=== PATIENT | female | born 1975 | race African-American/Black ===

== ENCOUNTER 2016-09-13 10:52 | Observation (INO) | payer OTHER ==
[2016-09-13 11:05] LABS: Glucose,Whole Blood 146 mg/dL (75-99)
[2016-09-13 11:30] LABS: Basophils % (A) 1 %; CH 30.7; CHCM 32.6; Eosinophils # (A) 0.1 k/uL (0-0.7); Eosinophils % (A) 2 %; HCT 43.1 % (34.0-46.0); HDW 2.51; HGB 13.8 gm/dL (11.4-16.0); Luc # (Auto) 0.16; Luc % (Auto) 2; Lymphocytes % (A) 56 %; MCH 30.3 pg (25.0-35.0); MCV 94.5 fL (80.0-100.0); Mean Platelet Volume 7.9; Monocytes # (A) 0.4 k/uL (0-1.0); Monocytes % (A) 5 %; Neutrophils # (A) 2.5 k/uL (1.3-7.7); Neutrophils % (A) 35 %; RBC 4.57 m/uL (3.80-5.40); RDW 13.4 % (11.5-15.5); WBC 7.2 k/uL (3.8-10.6); WBC (Perox) 7.22
[2016-09-13 11:37] LABS: Partial Thromboplastin Time 26.4 sec (22.0-30.0); Prothrombin Time 10.3 sec (9.0-12.0)
[2016-09-13 11:44] LABS: ALT 32 U/L (9-52); AST 14 U/L (14-36); Alkaline Phosphatase 86 U/L (38-126); Anion Gap 10 mmol/L; Blood Urea Nitrogen 14 mg/dL (7-17); Calcium 9.5 mg/dL (8.4-10.2); Carbon Dioxide 30 mmol/L (22-30); Chloride 103 mmol/L (98-107); Glucose 159 mg/dL (74-99); Non-African American GFR(MDRD) >60 (>60 ml/min/1.73 sqM); Potassium 4.2 mmol/L (3.5-5.1); Sodium 143 mmol/L (137-145); Total Bilirubin 0.5 mg/dL (0.2-1.3); Total Protein 7.5 g/dL (6.3-8.2)
--- NOTE | 2016-09-13 11:48 | CT ---
EXAMINATION TYPE: CT brain wo con DATE OF EXAM: 09/13/2016 11:42 AM COMPARISON: 04/15/2014 HISTORY: 40-year-old female complains of left side facial droop, headache, and episode of dysphagia a nd blurry vision. TECHNIQUE: Examination was done in axial plane without intravenous contrast. Coronal and sagittal reconstructio ns performed. CT DLP: 1028 mGycm Automated exposure control for dose reduction was used. FINDINGS: There is no evidence of acute intracranial hemorrhage, acute ischemic changes, mass, mass-effect, or extra-axial fluid collection. There is no effacement of cerebral sulci or basal subarachnoid cister ns. There is no hydrocephalus. There is no midline shift. Joseph-white matter distinction is preserv ed. Incidental empty sella. Patient's gaze is slightly divergent suggesting underlying strabismus. Visualized paranasal sinuses a nd mastoid air cells well pneumatized. Cerumen within the right external auditory canal. IMPRESSION: 1. No acute intracranial abnormality seen. 2. Empty sella. 3. Slightly divergent gaze suggests underlying strabismus. Clinically correlate.
--- NOTE | 2016-09-13 11:50 | XR ---
EXAMINATION TYPE: XR chest 1V portable DATE OF EXAM: 09/13/2016 11:37 AM COMPARISON: 07/30/2014 HISTORY: Pain TECHNIQUE: Single frontal view of the chest is obtained. FINDINGS: There is no focal air space opacity, pleural effusion, or pneumothorax seen. The cardiac silhouette size is within normal limits. The osseous structures are intact. IMPRESSION: 1. No acute process.
[2016-09-13 11:55] LABS: Manual Review Performed
[2016-09-13 11:56] LABS: RBC Morphology Normal
[2016-09-13 12:09] LABS: Creatine Kinase 60 U/L (30-135)
[2016-09-13] MEDS ORDERED: RX INFO: IV CONTRAST WAS GIVEN 1 EACH MISC MISCELLANE PRN (12:15)
[2016-09-13] MEDS ORDERED: INSULIN REGULAR 100 UNIT/ML VIAL IV STA (12:16)
[2016-09-13 12:21] LABS: Creatine Kinase MB <0.2 ng/mL (0.0-2.4); Troponin I <0.012 ng/mL (0.000-0.034)
--- NOTE | 2016-09-13 13:22 | CT ---
EXAMINATION TYPE: CT angio head neck DATE OF EXAM: 09/13/2016 1:17 PM COMPARISON: CT brain 09/13/2016 HISTORY: 40-year-old female left-sided weakness and right facial droop. CT DLP: 1287.6 mGycm Automated exposure control for dose reduction was used. TECHNIQUE: Brain and neck after administration of 60mL Omnipaque 350 IV contrast. Coronal and sagitta l MIP reconstructions performed. 3-D reconstructions generated on a dedicated independent workstation . Detailed analysis of the carotid vessels with 3-D vessel probe.. FINDINGS: NECK: There is bovine configuration to the aortic arch. Both vertebral artery origins are patent. The vertebral arteries are codominant and patent throughout their course. Incidentally, there is early tilted cutoff of the left posterior inferior cerebellar artery at the up per C3 segment. Right common carotid artery and right internal carotid artery are patent. Left common carotid artery and left internal carotid artery are patent. BRAIN: There is prominent venous contamination. Both anterior and posterior circulations are patent includin g the vertebral, basilar, and internal carotid arteries. No significant stenosis or occlusion is seen . No aneurysmal change identified. Empty sella and again noted. IMPRESSION: 1. NO SIGNIFICANT STENOSIS OR OCCLUSION OF THE CAROTID OR VERTEBRAL ARTERIES IN THE NECK. 2. NO LARGE VESSEL INTRACRANIAL OCCLUSION, SIGNIFICANT STENOSIS, OR ANEURYSMAL CHANGE SEEN.
[2016-09-13 15:25] LABS: Glucose,Whole Blood 83 mg/dL (75-99)
[2016-09-13] MEDS ORDERED: ASPIRIN 325 MG TAB PO STA (15:57)
--- NOTE | 2016-09-13 17:02 | US ---
EXAMINATION TYPE: US carotid duplex BILAT DATE OF EXAM: 09/13/2016 4:48 PM COMPARISON: NONE CLINICAL HISTORY: 40-year-old female with left facial drooping. Evaluate for stenosis. TECHNIQUE: Duplex ultrasound examination of the carotid and vertebral arteries. Indirect Doppler crit eria was utilized. FINDINGS: Grayscale images show minimal plaque at both bifurcations. RIGHT: Peak Systolic Velocity (PSV) cm/sec ----- Right CCA: 85.3 ----- Right ICA: 72.9 ----- Right ECA: 59.0 ICA/CCA ratio: 0.9 RIGHT: End Diastole cm/sec ----- Right CCA: 25.9 ----- Right ICA: 28.4 ----- Right ECA: 11.9 LEFT: Peak Systolic Velocity (PSV) cm/sec ----- Left CCA: 85.5 ----- Left ICA: 70.3 ----- Left ECA: 59.8 ICA/CCA ratio: 0.8 LEFT: End Diastole cm/sec ----- Left CCA: 28.2 ----- Left ICA: 31.9 ----- Left ECA: 59.8 VERTEBRALS (direction of flow): Right Vertebral: Antegrade Left Vertebral: Antegrade IMPRESSION: No hemodynamically significant stenosis appreciated in either internal carotid artery. Criteria for Assigning % of Stenosis / Diameter reduction (Estimation based on the indirect measurements of the internal carotid artery velocities (ICA PSV). 1. Normal (no stenosis)=ICA PSV < 125 cm/s: ratio < 2.0: ICA EDV<40 cm/s. 2. Less than 50% stenosis=ICA PSV < 125 cm/s: ratio < 2.0: ICA EDV<40 cm/s. 3. 50 to 69% stenosis=ICA PSV of 125 to 230 cm/s: ration 2.0 ? 4.0: ICA EDV 40-100 cm/s. 4. Greater than 70% stenosis to near occlusion= ICA PSV > 230 cm/s: ratio > 4.0: ICA EDV > 100 cm/s. 5. Near occlusion= ICA PSV velocities may be low or undetectable: variable ratio and ICA EDV. 6. Total occlusion=unable to detect flow.
[2016-09-13] MEDS: SODIUM CHLORIDE 0.9% 1,000 ML IV SCH (17:03)
--- NOTE | 2016-09-13 17:49 | ED ---
Neuro HPI - General Chief Complaint: Neuro Symptoms/Deficit Stated Complaint: face drooping Time Seen by Provider: 09/13/16 11:04 Source: patient Mode of arrival: wheelchair Limitations: no limitations - History of Present Illness Is the patient presenting with stroke symptoms?: Yes Onset/Timin -: hour(s) Initial Comments: This patient is a 40-year-old woman who presents to be evaluated for neurologic symptoms. The patient states that at about 8:30 last night she began to develop right-sided facial numbness. She has developed a facial droop over the course of the night. Then about half hour prior to coming in she began to have some left leg tingling and left arm tingling as well. Patient is denying headache, change in vision or speech. She has not had any difficulty with swallowing or breathing. Patient does not have any neurologic symptoms to the right side of her body or to the left side of her face. Location: right face, left arm, left leg History of same: No Place: home Severity: moderate Quality: weak Improves With: none Worsens With: none On Anticoagulants: No Context: gradual onset Associated Symptoms: denies other symptoms - Related Data Home Medications: Home Medications Medication Instructions Recorded Confirmed Azithromycin [Zithromax Z-pack] 0 mg PO DIRECTED 09/13/16 09/13/16 methylPREDNISolone Dose Pack 4 mg PO DIRECTED 09/13/16 09/13/16 [Medrol Dose Pack] Allergies/Adverse Reactions: Allergies Allergy/AdvReac Type Severity Reaction Status Date / Time Penicillins Allergy Unknown Verified 09/13/16 11:50 Review of Systems ROS Statement: Those systems with pertinent positive or pertinent negative responses have been documented in the HPI. ROS Other: All systems not noted in ROS Statement are negative. Constitutional: Reports: weakness. Denies: fever, chills Eyes: Denies: vision change ENT: Denies: ear pain, hearing loss Respiratory: Denies: cough, dyspnea Cardiovascular: Denies: chest pain, palpitations, edema, syncope Gastrointestinal: Denies: abdominal pain, nausea, vomiting Genitourinary: Denies: dysuria, hematuria Musculoskeletal: Denies: back pain Skin: Denies: rash Neurological: Reports: as per HPI, weakness, numbness. Denies: headache, confusion, abnormal gait General Exam Limitations: no limitations General appearance: alert, in no apparent distress Head exam: Present: atraumatic, normocephalic, normal inspection Eye exam: Present: PERRL, EOMI. Absent: scleral icterus, conjunctival injection ENT exam: Present: normal oropharynx, mucous membranes moist, normal external ear exam Neck exam: Present: normal inspection, full ROM. Absent: tenderness, meningismus Respiratory exam: Present: normal lung sounds bilaterally. Absent: respiratory distress, wheezes, rales, rhonchi, stridor Cardiovascular Exam: Present: regular rate, normal rhythm, normal heart sounds. Absent: systolic murmur, diastolic murmur, rubs, gallop GI/Abdominal exam: Present: soft. Absent: distended, tenderness, guarding, rebound, mass Extremities exam: Present: normal inspection, normal capillary refill. Absent: pedal edema, calf tenderness Back exam: Present: normal inspection. Absent: CVA tenderness (R), CVA tenderness (L) Neurological exam: Present: alert, oriented X3, normal gait, motor sensory deficit. Absent: CN II-XII intact Skin exam: Present: warm, dry, intact, normal color. Absent: rash Stroke MDM - Lab Data Result diagrams: 09/13/16 11:10 09/13/16 11:10 Lab Results 09/13/16 09/13/16 09/13/16 Range/Units 11:04 11:10 11:10 WBC 7.2 (3.8-10.6) k/uL RBC 4.57 (3.80-5.40) m/uL Hgb 13.8 (11.4-16.0) gm/dL Hct 43.1 (34.0-46.0) % MCV 94.5 (80.0-100.0) fL MCH 30.3 (25.0-35.0) pg MCHC 32.0 (31.0-37.0) g/dL RDW 13.4 (11.5-15.5) % Plt Count 285 (150-450) k/uL Neutrophils % 35 % Lymphocytes % 56 % Monocytes % 5 % Eosinophils % 2 % Basophils % 1 % Neutrophils # 2.5 (1.3-7.7) k/uL Lymphocytes # 4.0 (1.0-4.8) k/uL Monocytes # 0.4 (0-1.0) k/uL Eosinophils # 0.1 (0-0.7) k/uL Basophils # 0.0 (0-0.2) k/uL Manual Slide Review Performed RBC Morphology Normal PT (9.0-12.0) sec INR (<1.1) APTT (22.0-30.0) sec Sodium (137-145) mmol/L Potassium (3.5-5.1) mmol/L Chloride (98-107) mmol/L Carbon Dioxide (22-30) mmol/L Anion Gap mmol/L BUN (7-17) mg/dL Creatinine (0.52-1.04) mg/dL Est GFR (MDRD) Af Amer (>60 ml/min/1.73 sqM) Est GFR (MDRD) Non-Af (>60 ml/min/1.73 sqM) Glucose (74-99) mg/dL POC Glucose (mg/dL) 146 H (75-99) mg/dL POC Glu Auto Cleaner ID Octavio Watson Calcium (8.4-10.2) mg/dL Total Bilirubin (0.2-1.3) mg/dL AST (14-36) U/L ALT (9-52) U/L Alkaline Phosphatase (38-126) U/L Total Creatine Kinase 60 (30-135) U/L CK-MB (CK-2) <0.2 (0.0-2.4) ng/mL CK-MB (CK-2) Rel Index Troponin I <0.012 (0.000-0.034) ng/mL Total Protein (6.3-8.2) g/dL Albumin (3.5-5.0) g/dL 09/13/16 09/13/16 09/13/16 Range/Units 11:10 11:10 15:22 WBC (3.8-10.6) k/uL RBC (3.80-5.40) m/uL Hgb (11.4-16.0) gm/dL Hct (34.0-46.0) % MCV (80.0-100.0) fL MCH (25.0-35.0) pg MCHC (31.0-37.0) g/dL RDW (11.5-15.5) % Plt Count (150-450) k/uL Neutrophils % % Lymphocytes % % Monocytes % % Eosinophils % % Basophils % % Neutrophils # (1.3-7.7) k/uL Lymphocytes # (1.0-4.8) k/uL Monocytes # (0-1.0) k/uL Eosinophils # (0-0.7) k/uL Basophils # (0-0.2) k/uL Manual Slide Review RBC Morphology PT 10.3 (9.0-12.0) sec INR 1.0 (<1.1) APTT 26.4 (22.0-30.0) sec Sodium 143 (137-145) mmol/L Potassium 4.2 (3.5-5.1) mmol/L Chloride 103 (98-107) mmol/L Carbon Dioxide 30 (22-30) mmol/L Anion Gap 10 mmol/L BUN 14 (7-17) mg/dL Creatinine 0.70 (0.52-1.04) mg/dL Est GFR (MDRD) Af Amer >60 (>60 ml/min/1.73 sqM) Est GFR (MDRD) Non-Af >60 (>60 ml/min/1.73 sqM) Glucose 159 H (74-99) mg/dL POC Glucose (mg/dL) 83 (75-99) mg/dL POC Glu Auto Cleaner Kristan Harvey Calcium 9.5 (8.4-10.2) mg/dL Total Bilirubin 0.5 (0.2-1.3) mg/dL AST 14 (14-36) U/L ALT 32 (9-52) U/L Alkaline Phosphatase 86 (38-126) U/L Total Creatine Kinase (30-135) U/L CK-MB (CK-2) (0.0-2.4) ng/mL CK-MB (CK-2) Rel Index Troponin I (0.000-0.034) ng/mL Total Protein 7.5 (6.3-8.2) g/dL Albumin 4.2 (3.5-5.0) g/dL - NIH Stroke Scale NIH Score total: 4 - Thrombolytic Inclusion/Exclusion Thrombolytic Exclusion Criteria: Symptom Onset > 3 Hours - Medical Decision Making Patient is a 40-year-old woman who began having neurologic symptoms last night and has continued to have symptoms to evolving. On the exam she has right- sided facial weakness involving the upper and lower motor neuron. The patient also has mild left sided upper extremity weakness and left leg ataxia on the heel metzger. The symptoms point towards a brainstem source. She had CT and CT angiogram that were negative. I discussed the case with the admitting physician as well as the neurologist. The patient had MRI ordered. - EKG Data -: EKG Interpreted by Me EKG shows normal: sinus rhythm, axis (Normal), intervals (Normal), QRS complexes (Normal), ST-T waves (Normal) Rate: normal (Rate 71 bpm) Interpretation: normal EKG Past Medical History Past Medical History: Asthma History of Any Multi-Drug Resistant Organisms: None Reported Past Surgical History: Hernia Repair, Hysterectomy Past Psychological History: No Psychological Hx Reported Smoking Status: Former smoker Past Alcohol Use History: Occasional Past Drug Use History: None Reported Course Vital Signs 09/13/16 09/13/16 09/13/16 10:54 11:10 11:40 Temperature 97 F L 97.0 F L Pulse Rate 78 87 87 Pulse Rate [ Wholesale Buyer ] Respiratory 18 16 16 Rate Blood Pressure 179/109 167/87 186/94 Blood Pressure [Right Arm Sitting] O2 Sat by Pulse 98 100 100 Oximetry 09/13/16 09/13/16 09/13/16 12:40 13:40 14:40 Temperature 97.6 F 97.7 F 97.7 F Pulse Rate 71 80 73 Pulse Rate [ Wholesale Buyer ] Respiratory 16 16 16 Rate Blood Pressure 143/66 134/87 137/78 Blood Pressure [Right Arm Sitting] O2 Sat by Pulse 100 100 99 Oximetry 09/13/16 16:40 Temperature 98.3 F Pulse Rate Pulse Rate [ 77 Wholesale Buyer ] Respiratory 16 Rate Blood Pressure Blood Pressure 150/71 [Right Arm Sitting] O2 Sat by Pulse 99 Oximetry - Reevaluation(s) Reevaluation #1: 09/13/16 17:47 I was at school informed that the patient had refused the MRI. Patient will be seen by neurology. she again is outside of the window for TPA. Patient's family desires that it be entered in her chart that there is prolonged QT syndrome in the family. The patient's EKG does not demonstrate prolonged QT. Disposition Clinical Impression: Acute ischemic stroke, Hyperglycemia Disposition: ADMITTED IP TO THIS [facility] Condition: Serious
[2016-09-13] MEDS: DOCUSATE 100 MG CAP PO SCH ×2 (19:45→21:28)
[2016-09-13 20:39] LABS: Glucose,Whole Blood 113 mg/dL (75-99)
--- NOTE | 2016-09-13 20:50 | MR ---
EXAMINATION TYPE: MR brain wo/w con DATE OF EXAM: 09/13/2016 8:26 PM COMPARISON: NONE HISTORY: Rt facial droop, lt arm weakness CONTRAST: Standard multiplanar, multisequence MRI departmental protocol utilizing 20 mL intravenous MultiHance gadolinium contrast. FINDINGS: The ventricles and sulci appear normal. There is no mass effect nor midline shift. Joesph and white matter structures have normal signal pattern. There is no evidence of cerebral edema. Corpus c allosum appears normal. Brainstem appears normal. There is mild mucosal thickening in the anterior le ft maxillary sinus. Sella turcica appears normal. Pituitary stalk is in the midline. Optic chiasm josse ears normal. There is no pathologic enhancement. IMPRESSION: Normal MR scan of the brain with and without contrast. No adverse change compared to old exam. Small mucous retention cyst in the left maxillary sinus.
[2016-09-13] MEDS ORDERED: PRAVASTATIN SODIUM 40 MG TAB PO SCH (21:00)
[2016-09-13] MEDS: FAMOTIDINE 20 MG/2 ML VIAL IV SCH (21:24)
[2016-09-13 23:42] LABS: Appearance,Urine Clear (Clear); Bilirubin,Urine Negative (Negative); Glucose,Urine (UA) Negative (Negative); Ketones,Urine Negative (Negative); Leukocyte Esterase,Urine Negative (Negative); Nitrite,Urine Negative (Negative); PH, Urine 5.5 (5.0-8.0); Protein,Urine Negative (Negative); Specific Gravity,Urine 1.019 (1.001-1.035); UA Billing (MACRO vs. MICRO) CHEM; Urobilinogen,Urine <2.0 mg/dL (<2.0)
[2016-09-14] MEDS: SODIUM CHLORIDE 0.9% 1,000 ML IV SCH ×2 (02:32→11:28)
[2016-09-14] MEDS ORDERED: ARTIFICIAL TEARS-HYPROMELLOSE DROPS 15 ML BTL BOTH EYES PRN (06:48)
[2016-09-14] MEDS: FAMOTIDINE 20 MG/2 ML VIAL IV SCH (07:50)
[2016-09-14] MEDS: DOCUSATE 100 MG CAP PO SCH (07:50)
--- NOTE | 2016-09-14 11:29 | P.CNNES ---
History of Present Illness Consult date: 09/14/16 Reason for Consult: Patient with right facial droop. History of Present Illness: This patient is a 40-year-old right-handed -[place] female who apparently 2 days ago noted sudden onset of right-sided facial numbness. She did not pay much attention thinking the symptoms would improve. Yesterday evening she went to meet her mother at home and noted that she was having more difficulty with some facial droop on the right side of her face. It was more noticeable to her and her mother. She was concerned this she has not had this type of symptom previously. The patient went to an urgent care center for further evaluation. She was then sent from the urgent care to the emergency room at [facility] for further evaluation. She was seen in the ER yesterday by Dr. Recio. Further evaluation at the time indicated the patient did have right-sided facial drooping as well as some complaints of left arm numbness and weakness. There was concern the patient may have had a TIA or strokelike syndrome and she was subsequently admitted to the hospital. The patient was sent for carotid Doppler ultrasound yesterday which came back negative for any evidence of carotid artery stenosis. Due to her symptoms there was concern for possibility of brainstem stroke and she was sent for MRI of the brain yesterday evening. MRI of the brain came back normal with no evidence of acute stroke or hemorrhage. We reviewed the MRI results today with the patient. She is resting comfortably and has noted improvement with the left -sided numbness. She still has right-sided facial weakness. Her clinical presentation at this time suggesting acute right-sided idiopathic Sotelo's palsy. She denies any recent exposure to cold weather on the face. She denies any right-sided facial pain at this time. She did notice some difficulty with her taste sensation on the anterior portion of her tongue yesterday. She still notices some slight tingling sensation on the tongue. The patient denied any focal weakness today. She has no previous history of TIA or stroke. We have recommended that she be treated with a Medrol Dosepak for acute Sotelo's palsy. Apparently she has used steroids in the past that she suffers from asthma. Once again reviewed the MRI of the brain and there is no evidence for acute ischemic stroke. Neurology is now consulted for further evaluation and recommendations. Review of Systems Constitutional: Denies chills, Denies fever Eyes: denies blurred vision, denies pain Ears, nose, mouth and throat: Denies headache, Denies sore throat Cardiovascular: Denies chest pain, Denies shortness of breath Respiratory: Denies cough Gastrointestinal: Denies abdominal pain, Denies diarrhea, Denies nausea, Denies vomiting Genitourinary: Denies dysuria, Denies hematuria Musculoskeletal: Denies myalgias Integumentary: Denies pruritus, Denies rash Neurological: Reports numbness, Reports paresthesias, Reports weakness Psychiatric: Denies anxiety, Denies depression Endocrine: Denies fatigue, Denies weight change Past Medical History Past Medical History: Asthma, Sleep Apnea/CPAP/BIPAP Additional Past Medical History / Comment(s): arthritis,psoriases, not using her cpap, recent abx for uri History of Any Multi-Drug Resistant Organisms: None Reported Past Surgical History: Hernia Repair, Hysterectomy Additional Past Surgical History / Comment(s): total hysterectomy Past Anesthesia/Blood Transfusion Reactions: No Reported Reaction Additional Past Anesthesia/Blood Transfusion Reaction / Comment(s): past blood transfusion-no reaction Past Psychological History: No Psychological Hx Reported Smoking Status: Former smoker Past Alcohol Use History: Occasional Additional Past Alcohol Use History / Comment(s): started smoking age 13,quit 2006, smoked 1 ppd Past Drug Use History: None Reported - Past Family History Mother Family Medical History: Asthma, Diabetes Mellitus, Hypertension Additional Family Medical History / Comment(s): heart problems Father Additional Family Medical History / Comment(s): "stomach problems," Medications and Allergies Home Medications Medication Instructions Recorded Confirmed Type Azithromycin [Zithromax Z-pack] 0 mg PO DIRECTED 09/13/16 09/13/16 History methylPREDNISolone Dose Pack 4 mg PO DIRECTED 09/13/16 09/13/16 History [Medrol Dose Pack] Allergies Allergy/AdvReac Type Severity Reaction Status Date / Time Penicillins Allergy Unknown Verified 09/13/16 11:50 Physical Examination - Vital Signs Vital Signs: Vital Signs Temp Pulse Resp BP Pulse Ox 09/14/16 04:00 73 16 117/67 100 09/14/16 00:00 97.8 F 88 16 162/87 100 09/13/16 20:00 97.4 F L 79 16 145/84 96 09/13/16 19:24 97.0 F L 73 16 154/108 98 09/13/16 18:40 97.8 F 79 16 158/74 99 09/13/16 16:40 98.3 F 77 16 150/71 99 Intake and Output 09/13/16 09/14/16 09/14/16 22:59 06:59 14:59 Output Total 550 Balance -550 Output: Urine 550 Other: Voiding Method Toilet Toilet # Voids 1 1 Weight 147.4 kg - Constitutional General appearance: average body habitus, cooperative - EENT EENT: mucous membranes moist - Respiratory Respiratory: lungs clear, normal breath sounds - Cardiovascular Cardiovascular: regular rate, normal S1, normal S2 Extremities: no peripheral edema bilaterally - Gastrointestinal Gastrointestinal: normoactive bowel sounds - Integumentary Integumentary: normal - Neurologic Cranial nerve examination: PERRL, EOMI, VFF, V1/V2/V3 grossly intact, tongue midline, intact gag reflex, intact corneal reflex, facial droop (Patient has a right lower motor neuron facial weakness pattern. She is unable to wrinkle her frontalis muscle and has right angle of the mouth weakness.), normal palatal elevation Speech examination: intact Sensorimotor examination: intact Detailed motor examination: grossly full strength in all extremities Motor examination - right side: 5/5: biceps, triceps, wrist flexion, wrist extension, land checker, hip flexors, knee extensors, dorsiflexion, toe extension (EHL) , plantarflexion Motor examination - left side: 5/5: biceps, triceps, wrist flexion, wrist extension, land checker, hip flexors, knee extensors, dorsiflexion, toe extension (EHL) , plantarflexion Detailed sensory examination: intact Reflex and gait examination: intact Reflexes: 1+: ankle, bicep, knee, tricep - Musculoskeletal Musculoskeletal: no pain - Psychiatric Psychiatric: mood/affect appropriate, cooperative Results - Laboratory Findings CBC and BMP: 09/13/16 11:10 09/13/16 11:10 Abnormal Lab Findings: Abnormal Labs 09/13/16 20:38 POC Glucose (mg/dL) 113 H Assessment and Plan (1) Right-sided Sotelo's palsy Status: Acute Code(s): G51.0 - SOTELO'S PALSY (2) Paresthesias Status: Acute Code(s): R20.2 - PARESTHESIA OF SKIN Plan: This patient is a 40-year-old female who presented 2 days ago with symptoms of right-sided facial numbness and weakness. Yesterday did symptoms worsened and she was admitted through the emergency room with possible symptoms of brainstem stroke. She was sent for MRI of the brain yesterday which came back negative for any evidence of acute stroke. Specifically no evidence of brainstem stroke. Her neurological examination today indicates the patient to have a right idiopathic Sotelo's palsy. Her pattern of weakness involving the right facial nerve is consistent with L's palsy. We've recommended that she begin on a Medrol Dosepak for further treatment. She is to use eye patch for the right eye at night when sleeping. We recommend a physical therapy consultation for exercise program for acute Sotelo's palsy. She may follow-up in the outpatient neurology clinic in 3-4 weeks following discharge. We've instructed her on some specific exercises to be performed for the Sotelo's palsy today as well. She may follow-up in the outpatient neurology clinic as recommended. Her overall prognosis at this time remains fair. Time with Patient: Greater than 30
--- NOTE | 2016-09-14 11:49 | ECHOF ---
Referral Reason:Thrombus MEASUREMENTS -------- HEIGHT: 180.3 cm WEIGHT: 147.9 kg BP: IVSd: 1.3 cm (0.6 - 1.1) LVIDd: 4.6 cm (3.9 - 5.3) LVPWd: 1.7 cm (0.6 - 1.1) IVSs: 1.8 cm LVIDs: 3.0 cm LVPWs: 2.1 cm Ao Diam: 2.6 cm (2.0 - 3.7) AV Cusp: 2.2 cm (1.5 - 2.6) LA Diam: 3.6 cm (2.7 - 3.8) MV EXCURSION: 21.866 mm (> 18.000) MV EF SLOPE: 131 mm/s (70 - 150) EPSS: 0.7 cm MV E Billy: 0.70 m/s MV DecT: 309 ms MV A Billy: 0.44 m/s MV E/A Ratio: 1.59 RAP: 5.00 mmHg RVSP: 11.95 mmHg FINDINGS -------- Sinus rhythm. This was a technically difficult study with suboptimal views. Morbid Obesity There is moderate concentric left ventricular hypertrophy. Overall left ventricular systolic function is low-normal with, an EF between 50 - 55 %. The right ventricle is normal in size and function. The left atrium is normal in size. The right atrium is normal in size. The aortic valve is trileaflet, and appears structurally normal. No aortic stenosis or regurgitation. The mitral valve leaflets are mildly thickened. Mild mitral regurgitation is present. Trace tricuspid regurgitation present. The right ventricular systolic pressure, as measured by Doppler, is 11.95mmHg. Pulmonic valve appears structurally normal. The aortic root, ascending aorta and aortic arch are normal. The pericardium is normal. CONCLUSIONS -------- 1. Sinus rhythm. 2. Trace tricuspid regurgitation present. 3. The right ventricular systolic pressure, as measured by Doppler, is 11.95mmHg. 4. Pulmonic valve appears structurally normal. 5. The aortic root, ascending aorta and aortic arch are normal. 6. The pericardium is normal. 7. There is moderate concentric left ventricular hypertrophy. 8. Overall left ventricular systolic function is low-normal with, an EF between 50 - 55 %. 9. The right ventricle is normal in size and function. 10. The left atrium is normal in size. 11. The right atrium is normal in size. 12. The aortic valve is trileaflet, and appears structurally normal. No aortic stenosis or regurgitation. 13. The mitral valve leaflets are mildly thickened. 14. Mild mitral regurgitation is present. DAIRY FARMER: Salome Chang RDCS
[2016-09-14 14:14] VITALS: BP 122/74; PULSE 82; RESP 14; TEMP 98.8
--- NOTE | 2016-09-14 16:29 | HP ---
DATE OF ADMISSION: 09/13/2016 PRESENTING COMPLAINT: Right-sided facial weakness. HISTORY OF PRESENTING COMPLAINT: 40-year-old patient ( ) history of ( ) whose chronic stable medical conditions include asthma, osteoarthritis. Patient presented with 2 days of right-sided facial weakness and felt that she may have some weakness in the left upper arm, left arm with some numbness. Some blurriness of the vision. No headache. No difficulty in swallowing. The patient is felt to have Rubalcava's palsy but because of involvement of lower left arm, there is a question about a stroke, hence being admitted for the same. No prior history of the same. REVIEW OF SYSTEMS: CONSTITUTIONAL: None. HEENT: As above. RESPIRATORY: None. CARDIOVASCULAR: None. GASTROINTESTINAL: None. GENITOURINARY: None. MUSCULOSKELETAL: Some pain in the joints. Dermatological: None. HEMATOLOGIC: None. LYMPHATICS: None. NEUROLOGICAL: As above. PSYCHIATRY: As above. Past history of asthma, questionable sleep apnea. PAST SURGICAL HISTORY: Hernia repair, total hysterectomy. SOCIAL HISTORY: The patient smoked a pack a day for 14 years; stopped in 2006. No alcohol intake. FAMILY HISTORY: Asthma, diabetes, hypertension, heart problems. Home medications: 1. Medrol Dosepak. 2. Zithromax. ALLERGIES TO PENICILLIN. PHYSICAL EXAMINATION: Vital signs on presentation: Temperature 97.7, pulse 73, respirations 16, blood pressure 137/78, pulse ix 99% on 2 L. GENERAL APPEARANCE: Obese, body mass index ( ) sitting up, not in distress. EYES: Pupils equal. Conjunctivae normal. HEENT: External appearance of nose and ears normal. Oral cavity normal. NECK: JVD not raised. Mass not palpable. RESPIRATORY: Effort normal. Lungs are clear. CARDIOVASCULAR: First and second sounds normal. No edema. ABDOMEN: Soft, nontender. Liver and spleen not palpable. LYMPHATIC: No lymph nodes palpable in the neck or axilla. PSYCHIATRY: Alert and oriented times three. Mood and affect are normal. Dermatological: Mouth is pulled to the left, on looking up loss of crease on the right forehead, unable to close the right eyelid tightly. Otherwise, power and sensation grossly intact. INVESTIGATIONS: White count 7.2, hemoglobin 7.8, potassium 4.2. UA negative. Upon admission, CT angio of the brain was unremarkable. ASSESSMENT: 1. Possible right-sided Rubalcava's palsy idiopathic given some symptoms on the left arm. MRI of the brain was added. 2. Morbid obesity; body mass index of 44.1. 3. Intermittent asthma, stable. PLAN: Neurological was consulted. MRI of the brain was ordered on presentation. ( ) was ordered.
--- NOTE | 2016-09-15 07:58 | DS ---
DATE OF ADMISSION: 09/13/2016 DATE OF DISCHARGE: 09/14/2016 FINAL DIAGNOSES: 1. Right-sided Rubalcava's palsy, idiopathic. 2. Morbid obesity, body mass index of 44.1. 3. Intermittent asthma, stable. HOSPITAL COURSE: This patient presented with right-sided Rubalcava's palsy. MRI of the brain was negative. Carotid Doppler was negative. CONSULTATION: Dr. Sylvie Sykes from neurology. Echocardiogram was unremarkable. DISCHARGE MEDICATIONS: 1. Medrol Dosepak. 2. Artificial tears one drop to both eyes q.i.d. p.r.n. Rubalcava's palsy exercise. Follow up with Dr. Sylvie Sykes in 3 weeks; Dr. Floridalma Stratton in one week. On examination, right-sided seventh ( ) nerve low motor neuron type paresis.
[2016-09-15] MEDS ORDERED: methylPREDNISolone 4 MG TAB TAPER PO SCH (09:00)
== END 2016-09-14 14:58 | disposition home or self-care (01) ==
LOC: EC 10:52 → 6SEL 15:59 → INTOOBSV 15:59
PROVIDERS: ADMIT Hospitalist; ATTEND Hospitalist
DX: G51.0 Bell's palsy (principal); Z68.41 Body mass index [BMI] 40.0-44.9, adult; E66.01 Morbid (severe) obesity due to excess calories; G47.30 Sleep apnea, unspecified; J45.20 Mild intermittent asthma, uncomplicated; L40.9 Psoriasis, unspecified; M19.90 Unspecified osteoarthritis, unspecified site; R73.9 Hyperglycemia, unspecified; Z88.0 Allergy status to penicillin; Z87.891 Personal history of nicotine dependence; Z82.49 Family history of ischemic heart disease and other diseases of the circulatory system; Z90.710 Acquired absence of both cervix and uterus; Z91.19 Patient's noncompliance with other medical treatment and regimen; Z82.5 Family history of asthma and other chronic lower respiratory diseases
CPT/HCPCS: 96361; 96374; 99285; 36415; 93005; 93306; 97163; 80053; 82550; 82553; 84484; 85025; 85610; 85730; 81003; 71010; 93880; 70496; 70450; 70498; 70553; G0378 ×2; Q9967; A9577; 96376

== ENCOUNTER 2017-03-13 19:47 | Emergency (ER) | payer OTHER ==
[2017-03-13] MEDS ORDERED: ASPIRIN 81 MG CHEW PO STA (20:43)
[2017-03-13] MEDS ORDERED: SODIUM CHLORIDE 0.9% 1,000 ML IV STA (20:43)
--- NOTE | 2017-03-13 20:57 | ED ---
General Adult HPI - General Chief complaint: Chest Pain Stated complaint: Sent by ME Chest pain Time Seen by Provider: 03/13/17 20:37 Source: patient, RN notes reviewed Mode of arrival: wheelchair Limitations: no limitations - History of Present Illness Initial comments: Patient is a 41-year-old female who presents emergency room today with a chief complaint of chest pain. She does admit to a "burning" type sensation to the anterior chest wall. States started yesterday approximate 6 PM when she was at work. She states it lasts for just a few seconds to minutes at a time. She states she feels radiation to the back and left arm. She states she's been having the same symptoms all last night and are up-to-date today. She states there is nothing that seems to make it better or worse. She states she's never had symptoms like this in the past. Currently denies any pain currently. Denies any other complaints or symptoms. Denies any family history of heart disease. Patient denies any recent fever, chills, shortness of breath, back pain , abdominal pain, nausea or vomiting, numbness or tingling, dysuria or hematuria , constipation or diarrhea, headaches or visual changes, or any other complaints. - Related Data Home Medications Medication Instructions Recorded Confirmed Albuterol Inhaler [Ventolin Hfa 1 - 2 puff INHALATION RT-Q6H PRN 03/13/17 Inhaler] Albuterol Nebulized [Ventolin 2.5 mg INHALATION RT-Q4H PRN 03/13/17 03/13/17 Nebulized] Previous Rx's Medication Instructions Recorded Famotidine [Pepcid] 20 mg PO BID #20 tablet 03/13/17 Allergies Allergy/AdvReac Type Severity Reaction Status Date / Time Penicillins Allergy Unknown Verified 03/13/17 20:35 Review of Systems ROS Statement: Those systems with pertinent positive or pertinent negative responses have been documented in the HPI. ROS Other: All systems not noted in ROS Statement are negative. Past Medical History Past Medical History: Asthma, Sleep Apnea/CPAP/BIPAP Additional Past Medical History / Comment(s): arthritis,psoriases, (family hx of long QT syndrome) History of Any Multi-Drug Resistant Organisms: None Reported Past Surgical History: Hernia Repair, Hysterectomy Additional Past Surgical History / Comment(s): total hysterectomy Past Anesthesia/Blood Transfusion Reactions: No Reported Reaction Additional Past Anesthesia/Blood Transfusion Reaction / Comment(s): past blood transfusion-no reaction Past Psychological History: No Psychological Hx Reported Smoking Status: Former smoker Past Alcohol Use History: None Reported Past Drug Use History: None Reported - Past Family History Mother Family Medical History: Asthma, Diabetes Mellitus, Hypertension Additional Family Medical History / Comment(s): heart problems Father Additional Family Medical History / Comment(s): "stomach problems," General Exam - General Exam Comments Initial Comments: General: The patient is awake and alert, in no distress, and does not appear acutely ill. Eye: Pupils are equal, round and reactive to light, extra-ocular movements are intact. No nystagmus. There is normal conjunctiva bilaterally. No signs of icterus. Ears, nose, mouth and throat: There are moist mucous membranes and no oral lesions. Neck: The neck is supple, there is no tenderness or JVD. Cardiovascular: There is a regular rate and rhythm. No murmur, rub or gallop is appreciated. Respiratory: Lungs are clear to auscultation, respirations are non-labored, breath sounds are equal. No wheezes, stridor, rales, or rhonchi. Gastrointestinal: Soft, non-distended, non-tender abdomen without masses or organomegaly noted. There is no rebound or guarding present. No CVA tenderness. Bowel sounds are unremarkable. Musculoskeletal: Normal ROM, no tenderness. Strength 5/5. Sensation intact. Pulses equal bilaterally 2+. Neurological: A&O x 3. CN II-XII intact, There are no obvious motor or sensory deficits. Coordination appears grossly intact. Speech is normal. Skin: Skin is warm and dry and no rashes or lesions are noted. Psychiatric: Cooperative, appropriate mood & affect, normal judgment. Limitations: no limitations Course Vital Signs 03/13/17 03/13/17 20:03 20:45 Temperature 98.0 F Pulse Rate 77 79 Respiratory 18 20 Rate Blood Pressure 155/94 130/65 O2 Sat by Pulse 98 100 Oximetry EKG Findings - EKG Comments: EKG Findings:: EKG performed at 2020: A 12-lead EKG was performed and interpreted by me as showing the following: Rate is 74, and rhythm is normal sinus. There are normal QRS complexes and normal R-wave progression. ST segments have no elevation or depression, and DE segments appear normal. Repeat EKG performed at 2111: A 12-lead EKG was performed and interpreted by me as showing the following: Rate is 76, and rhythm is normal sinus. There are normal QRS complexes and normal R-wave progression. ST segments have no elevation or depression, and DE segments appear normal. Medical Decision Making - Medical Decision Making Case discussed in detail with attending physician Dr. Samuels who saw the patient at bedside. Patient reexamined at this time shows no signs of distress. Symptoms started 6 PM yesterday. There is no change in cardiac markers. EKG shows normal sinus rhythm no changes. At this time patient will be started on a PPI for burning type sensation and advised to follow-up the family doctor tomorrow. She is advised return here to emergency room if any symptoms increase or worsen or for any other concerns. - Lab Data Result diagrams: 03/13/17 20:41 03/13/17 20:41 Lab Results 03/13/17 03/13/17 03/13/17 Range/Units 20:41 20:41 20:41 WBC 5.7 (3.8-10.6) k/uL RBC 4.43 (3.80-5.40) m/uL Hgb 13.8 (11.4-16.0) gm/dL Hct 40.9 (34.0-46.0) % MCV 92.3 (80.0-100.0) fL MCH 31.2 (25.0-35.0) pg MCHC 33.8 (31.0-37.0) g/dL RDW 12.8 (11.5-15.5) % Plt Count 293 (150-450) k/uL Neutrophils % (Manual) 30.0 % Lymphocytes % (Manual) 66.0 % Monocytes % (Manual) 2.0 % Eosinophils % (Manual) 2.0 % Neutrophils # (Manual) 1.7 (1.3-7.7) k/uL Lymphocytes # (Manual) 3.8 (1.0-4.8) k/uL Monocytes # (Manual) 0.1 (0-1.0) k/uL Eosinophils # (Manual) 0.1 (0-0.7) k/uL Nucleated RBCs 0 (0-0) /100 WBC Manual Slide Review Performed RBC Morphology Normal PT (9.0-12.0) sec INR (<1.1) APTT (22.0-30.0) sec Sodium 142 (137-145) mmol/L Potassium 4.2 (3.5-5.1) mmol/L Chloride 107 (98-107) mmol/L Carbon Dioxide 26 (22-30) mmol/L Anion Gap 9 mmol/L BUN 8 (7-17) mg/dL Creatinine 0.60 (0.52-1.04) mg/dL Est GFR (MDRD) Af Amer >60 (>60 ml/min/1.73 sqM) Est GFR (MDRD) Non-Af >60 (>60 ml/min/1.73 sqM) Glucose 154 H (74-99) mg/dL Calcium 9.9 (8.4-10.2) mg/dL Magnesium 2.0 (1.6-2.3) mg/dL Total Bilirubin 0.3 (0.2-1.3) mg/dL AST 16 (14-36) U/L ALT 32 (9-52) U/L Alkaline Phosphatase 86 (38-126) U/L Total Creatine Kinase 94 (30-135) U/L CK-MB (CK-2) 0.3 (0.0-2.4) ng/mL CK-MB (CK-2) Rel Index 0.3 Troponin I <0.012 (0.000-0.034) ng/mL Total Protein 7.1 (6.3-8.2) g/dL Albumin 4.0 (3.5-5.0) g/dL 03/13/17 Range/Units 20:41 WBC (3.8-10.6) k/uL RBC (3.80-5.40) m/uL Hgb (11.4-16.0) gm/dL Hct (34.0-46.0) % MCV (80.0-100.0) fL MCH (25.0-35.0) pg MCHC (31.0-37.0) g/dL RDW (11.5-15.5) % Plt Count (150-450) k/uL Neutrophils % (Manual) % Lymphocytes % (Manual) % Monocytes % (Manual) % Eosinophils % (Manual) % Neutrophils # (Manual) (1.3-7.7) k/uL Lymphocytes # (Manual) (1.0-4.8) k/uL Monocytes # (Manual) (0-1.0) k/uL Eosinophils # (Manual) (0-0.7) k/uL Nucleated RBCs (0-0) /100 WBC Manual Slide Review RBC Morphology PT 9.9 (9.0-12.0) sec INR 1.0 (<1.1) APTT 25.1 (22.0-30.0) sec Sodium (137-145) mmol/L Potassium (3.5-5.1) mmol/L Chloride (98-107) mmol/L Carbon Dioxide (22-30) mmol/L Anion Gap mmol/L BUN (7-17) mg/dL Creatinine (0.52-1.04) mg/dL Est GFR (MDRD) Af Amer (>60 ml/min/1.73 sqM) Est GFR (MDRD) Non-Af (>60 ml/min/1.73 sqM) Glucose (74-99) mg/dL Calcium (8.4-10.2) mg/dL Magnesium (1.6-2.3) mg/dL Total Bilirubin (0.2-1.3) mg/dL AST (14-36) U/L ALT (9-52) U/L Alkaline Phosphatase (38-126) U/L Total Creatine Kinase (30-135) U/L CK-MB (CK-2) (0.0-2.4) ng/mL CK-MB (CK-2) Rel Index Troponin I (0.000-0.034) ng/mL Total Protein (6.3-8.2) g/dL Albumin (3.5-5.0) g/dL Disposition Clinical Impression: Burning chest pain Disposition: HOME SELF-CARE Condition: Good Instructions: Chest Pain (ED) Additional Instructions: Please use medication as discussed. Please follow-up with family doctor in the next 1-2 days. Please return to emergency room if the symptoms increase or worsen or for any other concerns. Prescriptions: Famotidine [Pepcid] 20 mg PO BID #20 tablet Referrals: Raegan Stratton MD [Primary Care Provider] - 1-2 days Time of Disposition: 21:56
[2017-03-13 21:04] LABS: CH 30.6; CHCM 33.2; HCT 40.9 % (34.0-46.0); HDW 2.56; HGB 13.8 gm/dL (11.4-16.0); MCH 31.2 pg (25.0-35.0); MCHC 33.8 g/dL (31.0-37.0); MCV 92.3 fL (80.0-100.0); Mean Platelet Volume 6.6; RBC 4.43 m/uL (3.80-5.40); RDW 12.8 % (11.5-15.5); WBC 5.7 k/uL (3.8-10.6); WBC (Perox) 5.72
--- NOTE | 2017-03-13 21:09 | XR ---
EXAMINATION TYPE: XR chest 2V DATE OF EXAM: 03/13/2017 COMPARISON: 09/13/2016 HISTORY: Chest burning and dyspnea TECHNIQUE: Frontal and lateral views of the chest are obtained. FINDINGS: There is no focal air space opacity, pleural effusion, or pneumothorax seen. The cardiac silhouette size is within normal limits. The osseous structures are intact. IMPRESSION: No acute cardiopulmonary process.
[2017-03-13 21:12] LABS: Prothrombin Time 9.9 sec (9.0-12.0)
[2017-03-13 21:13] LABS: Partial Thromboplastin Time 25.1 sec (22.0-30.0)
[2017-03-13 21:15] LABS: Add Differential Manual Differential
[2017-03-13] MEDS ORDERED: NITROGLYCERIN SL TABS 0.4 MG TAB SUBLINGUAL STA (21:15)
[2017-03-13 21:16] LABS: ALT 32 U/L (9-52); AST 16 U/L (14-36); Alkaline Phosphatase 86 U/L (38-126); Anion Gap 9 mmol/L; Blood Urea Nitrogen 8 mg/dL (7-17); Calcium 9.9 mg/dL (8.4-10.2); Carbon Dioxide 26 mmol/L (22-30); Chloride 107 mmol/L (98-107); Glucose 154 mg/dL (74-99); Non-African American GFR(MDRD) >60 (>60 ml/min/1.73 sqM); Potassium 4.2 mmol/L (3.5-5.1); Sodium 142 mmol/L (137-145); Total Bilirubin 0.3 mg/dL (0.2-1.3); Total Protein 7.1 g/dL (6.3-8.2)
[2017-03-13 21:17] LABS: Creatine Kinase 94 U/L (30-135)
[2017-03-13 21:18] LABS: Manual Review Performed; Nucleated Red Blood Cells 0 /100 WBC (0-0); RBC Morphology Normal; Total Cells Counted 100
[2017-03-13 21:30] LABS: Creatine Kinase MB 0.3 ng/mL (0.0-2.4); Troponin I <0.012 ng/mL (0.000-0.034)
[2017-03-13] MEDS ORDERED: MAG HYDROX/AL HYDROX/SIMETH 30 ML, HYOSCYAMINE ELIXIR 10 ML, CIMETIDINE HCL 300 MG PO STA ×3 (21:50)
[2017-03-13 22:19] VITALS: BP 119/64; PULSE 74; RESP 16; TEMP 97.6
[2017-03-13] MEDS ORDERED: ACETAMINOPHEN TAB 500 MG TAB PO STA (22:20)
== END 2017-03-13 22:32 | disposition home or self-care (01) ==
LOC: EC 19:47
DX: R07.9 Chest pain, unspecified (principal); J45.909 Unspecified asthma, uncomplicated; Z88.0 Allergy status to penicillin; Z87.891 Personal history of nicotine dependence
CPT/HCPCS: 36415; 71020; 80053; 82550; 82553; 83735; 84484; 85025; 85610; 85730; 93005; 96360; 99285

== ENCOUNTER 2017-04-21 09:42 | Observation (INO) | payer OTHER ==
--- NOTE | 2017-04-21 10:05 | ED ---
General Adult HPI - General Chief complaint: Neuro Symptoms/Deficit Stated complaint: rt facial numbness Time Seen by Provider: 04/21/17 09:54 Source: patient, RN notes reviewed, old records reviewed Mode of arrival: wheelchair Limitations: no limitations - History of Present Illness Initial comments: This is a 41-year-old female the ER for L urination. Patient is here for those of right-sided face and facial numbness and tingling. Weakness. Right-sided face with also right eye blurry vision. Patient has no headache. No other neurological deficits. States she's had positive probable stroke before with left-sided facial movements and issues. Patient takes no aspirin or no anticoagulation - Related Data Home Medications Medication Instructions Recorded Confirmed Albuterol Inhaler [Ventolin Hfa 1 - 2 puff INHALATION RT-Q6H PRN 03/13/17 Inhaler] Albuterol Nebulized [Ventolin 2.5 mg INHALATION RT-Q4H PRN 03/13/17 04/21/17 Nebulized] Allergies Allergy/AdvReac Type Severity Reaction Status Date / Time Penicillins Allergy Unknown Verified 04/21/17 10:24 Childhood Review of Systems ROS Statement: Those systems with pertinent positive or pertinent negative responses have been documented in the HPI. ROS Other: All systems not noted in ROS Statement are negative. Past Medical History Past Medical History: Asthma, Sleep Apnea/CPAP/BIPAP Additional Past Medical History / Comment(s): arthritis,psoriases, (family hx of long QT syndrome) History of Any Multi-Drug Resistant Organisms: None Reported Past Surgical History: Hernia Repair, Hysterectomy Additional Past Surgical History / Comment(s): total hysterectomy Past Anesthesia/Blood Transfusion Reactions: No Reported Reaction Additional Past Anesthesia/Blood Transfusion Reaction / Comment(s): past blood transfusion-no reaction Past Psychological History: No Psychological Hx Reported Smoking Status: Former smoker Past Alcohol Use History: None Reported Past Drug Use History: None Reported - Past Family History Mother Family Medical History: Asthma, Diabetes Mellitus, Hypertension Additional Family Medical History / Comment(s): heart problems Father Additional Family Medical History / Comment(s): "stomach problems," General Exam - General Exam Comments Initial Comments: NIH of 0 Limitations: no limitations General appearance: alert, in no apparent distress Head exam: Present: atraumatic, normocephalic, normal inspection Eye exam: Present: normal appearance, PERRL, EOMI. Absent: scleral icterus, conjunctival injection, periorbital swelling ENT exam: Present: normal exam, mucous membranes moist Neck exam: Present: normal inspection. Absent: tenderness, meningismus, lymphadenopathy Respiratory exam: Present: normal lung sounds bilaterally. Absent: respiratory distress, wheezes, rales, rhonchi, stridor Cardiovascular Exam: Present: regular rate, normal rhythm, normal heart sounds. Absent: systolic murmur, diastolic murmur, rubs, gallop, clicks GI/Abdominal exam: Present: soft, normal bowel sounds. Absent: distended, tenderness, guarding, rebound, rigid Extremities exam: Present: normal inspection, full ROM, normal capillary refill. Absent: tenderness, pedal edema, joint swelling, calf tenderness Back exam: Present: normal inspection Neurological exam: Present: alert, oriented X3, CN II-XII intact Psychiatric exam: Present: normal affect, normal mood Skin exam: Present: warm, dry, intact, normal color. Absent: rash Course Vital Signs 04/21/17 04/21/17 09:48 11:51 Temperature 99.0 F Pulse Rate 85 76 Respiratory 18 18 Rate Blood Pressure 137/86 121/67 O2 Sat by Pulse 97 96 Oximetry - Reevaluation(s) Reevaluation #1: 04/21/17 12:23 Patient patient is no changes neurologically, states she is fearful edges having a stroke EKG Findings - EKG Comments: EKG Findings:: EKG shows normal sinus or mastoid 5, UT 174, QRS 90, QTc 451 Medical Decision Making - Medical Decision Making 41 female in the ER with forward she feels as recurrent stroke, patient position similar symptoms in the left-sided face last time, currently she has right-sided symptoms with leg and inability to smile inability close eye. Patient denies taking aspirin, since his prior history of CVA, will admit for observation by neurology - Lab Data Result diagrams: 04/21/17 10:05 04/21/17 10:05 Lab Results 04/21/17 04/21/17 04/21/17 Range/Units 10:05 10:05 10:05 WBC 5.4 (3.8-10.6) k/uL RBC 4.21 (3.80-5.40) m/uL Hgb 13.0 (11.4-16.0) gm/dL Hct 40.3 (34.0-46.0) % MCV 95.7 (80.0-100.0) fL MCH 31.0 (25.0-35.0) pg MCHC 32.4 (31.0-37.0) g/dL RDW 14.0 (11.5-15.5) % Plt Count 289 (150-450) k/uL Neutrophils % 47 % Lymphocytes % 45 % Monocytes % 3 % Eosinophils % 3 % Basophils % 1 % Neutrophils # 2.5 (1.3-7.7) k/uL Lymphocytes # 2.4 (1.0-4.8) k/uL Monocytes # 0.2 (0-1.0) k/uL Eosinophils # 0.1 (0-0.7) k/uL Basophils # 0.0 (0-0.2) k/uL PT (9.0-12.0) sec INR (<1.2) APTT (22.0-30.0) sec Sodium 141 (137-145) mmol/L Potassium 4.0 (3.5-5.1) mmol/L Chloride 105 (98-107) mmol/L Carbon Dioxide 27 (22-30) mmol/L Anion Gap 9 mmol/L BUN 11 (7-17) mg/dL Creatinine 0.72 (0.52-1.04) mg/dL Est GFR (MDRD) Af Amer >60 (>60 ml/min/1.73 sqM) Est GFR (MDRD) Non-Af >60 (>60 ml/min/1.73 sqM) Glucose 177 H (74-99) mg/dL Calcium 8.9 (8.4-10.2) mg/dL Phosphorus 2.6 (2.5-4.5) mg/dL Magnesium 1.8 (1.6-2.3) mg/dL Total Bilirubin 0.4 (0.2-1.3) mg/dL AST 18 (14-36) U/L ALT 33 (9-52) U/L Alkaline Phosphatase 82 (38-126) U/L Total Creatine Kinase 178 H (30-135) U/L CK-MB (CK-2) 1.0 (0.0-2.4) ng/mL CK-MB (CK-2) Rel Index 0.6 Troponin I <0.012 (0.000-0.034) ng/mL Total Protein 7.0 (6.3-8.2) g/dL Albumin 3.7 (3.5-5.0) g/dL / Range/Units 10:05 WBC (3.8-10.6) k/uL RBC (3.80-5.40) m/uL Hgb (11.4-16.0) gm/dL Hct (34.0-46.0) % MCV (80.0-100.0) fL MCH (25.0-35.0) pg MCHC (31.0-37.0) g/dL RDW (11.5-15.5) % Plt Count (150-450) k/uL Neutrophils % % Lymphocytes % % Monocytes % % Eosinophils % % Basophils % % Neutrophils # (1.3-7.7) k/uL Lymphocytes # (1.0-4.8) k/uL Monocytes # (0-1.0) k/uL Eosinophils # (0-0.7) k/uL Basophils # (0-0.2) k/uL PT 10.0 (9.0-12.0) sec INR 1.0 (<1.2) APTT 26.0 (22.0-30.0) sec Sodium (137-145) mmol/L Potassium (3.5-5.1) mmol/L Chloride (98-107) mmol/L Carbon Dioxide (22-30) mmol/L Anion Gap mmol/L BUN (7-17) mg/dL Creatinine (0.52-1.04) mg/dL Est GFR (MDRD) Af Amer (>60 ml/min/1.73 sqM) Est GFR (MDRD) Non-Af (>60 ml/min/1.73 sqM) Glucose (74-99) mg/dL Calcium (8.4-10.2) mg/dL Phosphorus (2.5-4.5) mg/dL Magnesium (1.6-2.3) mg/dL Total Bilirubin (0.2-1.3) mg/dL AST (14-36) U/L ALT (9-52) U/L Alkaline Phosphatase (38-126) U/L Total Creatine Kinase (30-135) U/L CK-MB (CK-2) (0.0-2.4) ng/mL CK-MB (CK-2) Rel Index Troponin I (0.000-0.034) ng/mL Total Protein (6.3-8.2) g/dL Albumin (3.5-5.0) g/dL - Radiology Data Radiology results: report reviewed (CT brain is negative), image reviewed Disposition Clinical Impression: Paresthesias, Cerebrovascular accident, Transient cerebral ischemia Disposition: ADMITTED IP TO THIS HOSP Condition: Fair Referrals: Raegan Stratton MD [Primary Care Provider] - 1-2 days
[2017-04-21 10:19] LABS: Basophils % (A) 1 %; CH 31.6; CHCM 33.2; Eosinophils # (A) 0.1 k/uL (0-0.7); Eosinophils % (A) 3 %; HCT 40.3 % (34.0-46.0); HDW 2.42; Luc # (Auto) 0.08; Luc % (Auto) 2; Lymphocytes # (A) 2.4 k/uL (1.0-4.8); Lymphocytes % (A) 45 %; MCHC 32.4 g/dL (31.0-37.0); MCV 95.7 fL (80.0-100.0); Monocytes # (A) 0.2 k/uL (0-1.0); Monocytes % (A) 3 %; Neutrophils # (A) 2.5 k/uL (1.3-7.7); Neutrophils % (A) 47 %; RBC 4.21 m/uL (3.80-5.40); WBC 5.4 k/uL (3.8-10.6); WBC (Perox) 5.44
[2017-04-21 10:33] LABS: ALT 33 U/L (9-52); AST 18 U/L (14-36); Alkaline Phosphatase 82 U/L (38-126); Anion Gap 9 mmol/L; Blood Urea Nitrogen 11 mg/dL (7-17); Calcium 8.9 mg/dL (8.4-10.2); Carbon Dioxide 27 mmol/L (22-30); Chloride 105 mmol/L (98-107); Glucose 177 mg/dL (74-99); Magnesium 1.8 mg/dL (1.6-2.3); Non-African American GFR(MDRD) >60 (>60 ml/min/1.73 sqM); Phosphorous 2.6 mg/dL (2.5-4.5); Sodium 141 mmol/L (137-145); Total Bilirubin 0.4 mg/dL (0.2-1.3)
[2017-04-21 10:47] LABS: Creatine Kinase 178 U/L (30-135)
[2017-04-21 10:59] LABS: Troponin I <0.012 ng/mL (0.000-0.034)
--- NOTE | 2017-04-21 11:00 | CT ---
EXAMINATION TYPE: CT brain wo con DATE OF EXAM: 04/21/2017 COMPARISON: 09/13/2016 INDICATION: Rt facial numbness DLP: 1017.9 mGycm, Automated exposure control for dose reduction was used. CONTRAST: None CT of the brain is performed utilizing 3 mm thick sections through the posterior fossa and 3 mm thick sections through the remaining calvarium. Study is performed within 24 hours of arrival to the hosp [facility]. No abnormal hyperdensity is present to suggest an acute intracranial hemorrhage. No mass lesion is evident. No acute infarcts are evident. Ventricles and sulci are appropriate for the patient age. Paranasal sinuses and mastoid air cells within the [id number] are clear. Exam is stable from prior study. IMPRESSIONS: 1. No acute intracranial process.
[2017-04-21] MEDS ORDERED: ASPIRIN 325 MG TAB PO STA (12:19)
[2017-04-21 12:24] LABS: Amorphous Sediment,Urine Few /hpf; Appearance,Urine Cloudy (Clear); Bilirubin,Urine Negative (Negative); Glucose,Urine (UA) 1+ (Negative); Ketones,Urine Negative (Negative); Leukocyte Esterase,Urine Negative (Negative); Mucus,Urine Rare /hpf; Nitrite,Urine Negative (Negative); Particle Count 16200; Protein,Urine Negative (Negative); Squamous Epithelial Cell,Urine <1 /hpf (0-4); UA Billing (MACRO vs. MICRO) MICRO; WBC,Urine 2 /hpf (0-5)
[2017-04-21] MEDS: SODIUM CHLORIDE 0.9% 1,000 ML IV SCH (12:45)
[2017-04-21] MEDS ORDERED: ALBUTEROL NEBULIZED 2.5 MG/3 ML INHALATION PRN (13:11)
[2017-04-21] MEDS ORDERED: LABETALOL 5 MG/ML VIAL MDV IVP PRN (13:25)
--- NOTE | 2017-04-21 13:32 | P.HPIM ---
History of Present Illness H&P Date: 04/21/17 Chief Complaint: Right eye blurriness Patient is a 41-year-old -[place] female with a history of Rubalcava's palsy , obstructive sleep apnea with no CPAP use, and asthma who presented with complaints of right sided facial weakness and right eye blurriness. She states that she has been having intermittent right eye blurriness but it became acutely more common today. She states that it lasted approximately 1-2 minutes and was resolved with the blinking. She's had approximately 4 episodes today. She also states that she notices that today she has had some right-sided facial weakness and numbness. She states it just feels different and feels as if she has a hard time blowing out her cheeks. This is associated with a right sided headache and fullness. She also complains of intermittent lightheadedness but she has not had any today. She has had Rubalcava's palsy in the past but states that this is different. She is no longer having any right eye blurriness. In the emergency department she underwent an extensive evaluation. Her EKG and troponin was normal. Head CT showed no acute process. Her NIH stroke scale was 0. She is admitted as observation for neurologic evaluation. Review of Systems General: no fever/chills, no rigors, no weight loss/weight gain, no change in appetite Eyes: No double vision, blurry vision right eye, no loss of vision ENT: No rhinorrhea, congestion, no thrush Cardiovascular: No chest pain, no palpitations, no syncope, no edema, Noo paroxysmal nocturnal dyspnea, No dizziness Pulmonary: No shortness of breath, no wheezing, no cough, hemoptysis Abdominal: No abdominal pain, no constipation, no diarrhea, no vomiting, no nausea, no distention Genitourinary: No dysuria, no urinary frequency, no hematuria, no unusual discharge/odor Neuro: + Paresthesias right face, right facial weakness + headache Dermatologic: No unusual rashes, no unusual lesions, no unusual changes in nails Endocrinology: No intolerance to heat/cold, no excessive thirst,] no unusual fatigue Hematologic: No unusual bruising or bleeding, no unusual cervical lymphadenopathy Psychiatric: No changes in mood or behaviors, no changes in sleep pattern Past Medical History Past Medical History: Asthma, Osteoarthritis (OA), Skin Disorder, Sleep Apnea/ CPAP/BIPAP Additional Past Medical History / Comment(s): 09/13/16 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, ART-has CPAP but doesn't use, arthritis bilateral knees, hips and ankles, psoriases,(family hx of long QT syndrome) History of Any Multi-Drug Resistant Organisms: None Reported Past Surgical History: Hernia Repair (Ventral), Hysterectomy Additional Past Surgical History / Comment(s): total hysterectomy Past Anesthesia/Blood Transfusion Reactions: No Reported Reaction Additional Past Anesthesia/Blood Transfusion Reaction / Comment(s): past blood transfusion-no reaction Smoking Status: Former smoker Past Alcohol Use History: Rare Past Drug Use History: None Reported Additional History: Lives with childred, no assistive devices - Past Family History Mother Family Medical History: Asthma, Diabetes Mellitus, Hypertension Additional Family Medical History / Comment(s): Long Qt syndrome Father Family Medical History: Pneumonia Additional Family Medical History / Comment(s): "stomach problems," Father of pneumonia at the age of 58yrs. Medications and Allergies Home Medications Medication Instructions Recorded Confirmed Type Albuterol Inhaler [Ventolin Hfa 1 - 2 puff INHALATION RT-Q6H PRN 03/13/17 History Inhaler] Albuterol Nebulized [Ventolin 2.5 mg INHALATION RT-Q4H PRN 03/13/17 04/21/17 History Nebulized] Allergies Allergy/AdvReac Type Severity Reaction Status Date / Time Penicillins Allergy Unknown Verified 04/21/17 10:24 Childhood Physical Exam Osteopathic Statement: *. No significant issues noted on an osteopathic structural exam other than those noted in the History and Physical/Consult. Vitals: Vital Signs Temp Pulse Resp BP Pulse Ox 04/21/17 12:37 97.7 F 70 18 126/63 97 04/21/17 11:51 76 18 121/67 96 04/21/17 09:48 99.0 F 85 18 137/86 97 Intake and Output 04/20/17 04/21/17 04/21/17 22:59 06:59 14:59 Other: Weight 147.871 kg Patient Weight 04/22/17 06:59 Weight 147.871 kg General: non toxic, no distress, appears at stated age, obese Derm: no rashes, no lesions, no ulcers, no unusual ecchymoses Head: atraumatic, normocephalic, symmetric Eyes: EOMI, no lid lag, anicteric sclera, pupils equal round reactive to light ENT: no post nasal drip, no thrush , nearest patent, no pharyngeal erythema, pain to palpation over right frontal sinus Neck: No thyromegaly, no cervical lymphadenopathy, trachea midline, supple Mouth: no lip lesion, mucus membranes moist Cardiovascular: S1S2 reg, no murmur, positive posterior tibial pulse bilateral, no edema , no JVD, no clubbing, no cyanosis, capillary refill less than 2 seconds Lungs: CTA bilateral, no rhonchi, no rales , no accessory muscle use Abdominal: soft, nontender to palpation, no guarding, no appreciable organomegaly, normal bowel sounds Ext: no gross muscle atrophy, muscle strength 5 out of 5 in all 4 extremities grossly, no contractures, Neuro: CN II-XI grossly intact, decreased sensation right face, light touch intact all 4 extremities, finger to nose within normal limits, normal heel to metzger, all visual phelps intact Psych: Alert, oriented, appropriate affect Results CBC & Chem 7: 04/21/17 10:05 04/21/17 10:05 Labs: Abnormal Lab Results - Last 24 Hours (Table) 04/21/17 04/21/17 04/21/17 Range/Units 10:05 10:05 11:45 Glucose 177 H (74-99) mg/dL Total Creatine Kinase 178 H (30-135) U/L Urine Appearance Cloudy H (Clear) Urine Glucose (UA) 1+ H (Negative) Amorphous Sediment Few H (None) /hpf Urine Mucus Rare H (None) /hpf Comments: EKG normal sinus rhythm at 75, normal axis, normal intervals CT Scan - head: report reviewed Thrombosis Risk Factor Assmnt - DVT/VTE Prophylaxis DVT/VTE Prophylaxis: Pharmacologic Prophylaxis ordered - Choose All That Apply Any of the Below Risk Factors Present?: Yes Each Factor Represents 1 point: Obesity (BMI >25) Other Risk Factors: No Other congenital or acquired thrombophilia - If yes, enter type in comment: No Each Risk Factor Represents 5 Points: Stroke (< 1 month) Thrombosis Risk Factor Assessment Total Risk Factor Score: 6 Thrombosis Risk Factor Assessment Level: Low Risk Assessment and Plan (1) Facial weakness Narrative/Plan: Possible stroke-patient would like to await neurology evaluation prior to MRI, aspirin, statin, telemetry, check echocardiogram, will not recheck carotid Dopplers as these were checked in September 2016 and were negative. Consult PT, OT, and speech therapy. Neuro checks. Check lipid profile and hemoglobin A1c. And initiate sliding scale insulin with glucose check in the emergency department being 177. When necessary labetalol for elevated blood pressure greater than 220. Status: Acute (2) Visual changes Narrative/Plan: May be due to stroke, doubt temporal arteritis as visual changes resolved and no pain on palpation of temporal area but will check ESR, may need outpatient optho evaluation. Status: Acute (3) Morbid obesity Narrative/Plan: structured outpatient weight loss. Status: Acute (4) Hyperglycemia Narrative/Plan: start SSI in light of possible stroked, check HgB A1C, follow BS Status: Acute Plan: Chronic: -Asthma - obstructive sleep apnea: Does not wear CPAP DVT prophylaxis: Lovenox Discused with: Emergency department physician, patient, floor nurse Anticipated discharge: 24-[address]: Home A total of 45 minutes was spent on the care of this complex patient more than 50 % of the time was spent in counseling and care coordination.
[2017-04-21] MEDS ORDERED: ACETAMINOPHEN TAB 325 MG TAB PO PRN (15:43)
[2017-04-21 16:54] LABS: Glucose,Whole Blood 143 mg/dL (75-99)
[2017-04-21] MEDS: INSULIN LISPRO (humaLOG) 300 UNIT/3 ML VIAL SQ SCH ×2 (17:22→22:16)
[2017-04-21 20:45] LABS: Hemoglobin A1C 6.6 % (4.2-6.1)
[2017-04-21 21:39] LABS: Glucose,Whole Blood 133 mg/dL (75-99)
--- NOTE | 2017-04-21 21:48 | P.CNNES ---
History of Present Illness Consult date: 04/21/17 Reason for Consult: Patient being evaluated for visual changes and possible stroke. History of Present Illness: This patient is a 41-year-old right-handed -[place] Citizen female who was admitted to the hospital today for further evaluation of right-sided facial numbness. Patient states that for the past 1 week she has been experiencing numbness involving the entire right side of her face. This morning she also complained of trouble with vision in her right eye. Apparently this came on very suddenly and lasted for 1 minute before it slowly improved. She did attempt blinking several times and this did seem to help. She had this recur a few more episodes at home. She was quite concerned whether this was related to an acute stroke. She does have a history of having suffered a left-sided Rubalcava' s palsy in September 2016. Her symptoms at that time were severe right-sided facial weakness. This morning she check to see if there was any significant facial weakness and this was not appreciated on her exam. The patient did undergo an MRI of the brain in September 2016 which she reports was normal. The patient stated that today she did not experience any facial droop or ringing in the ears. She denies any hyper acuity and hearing in the right ear. She did not experience any changes in her taste sensation in the mouth due to this event. She did not notice any droopiness in the right ocular eyelid muscles. The patient decided to come to the emergency room at [facility] for further evaluation as she was concerned of stroke. She states that her symptoms today are quite different from her Rubalcava's palsy that she had in September of this year. Patient was seen in the emergency room by Dr. Jeremie Neely. She underwent a computed tomography scan of the brain which was reported negative for any acute intracranial process. She continues to have numbness on the right side of the face. She does not seem to have any difficulty for rowing the right brow muscles on the right side. She does not have any evidence of right facial droop. Given these findings we have suggested she should undergo further evaluation to rule out brainstem ischemia. We have discussed these findings in detail today with the patient. The patient underwent some laboratory testing today including a hemoglobin A1c which was 6.6. We have recommended a lipid profile to be done as well. Patient did not experience any right arm or leg weakness with the onset of these symptoms of right facial numbness. We have recommended a complete stroke evaluation for the patient. The patient does have a history of obstructive sleep apnea. She underwent a sleep study in the past. We've recommended that she should be using CPAP machine on a daily basis. She states she does have a CPAP machine but does not use it on any regular basis. We suggest she should follow-up with her primary care physician for further evaluation of her obstructive sleep apnea condition. We would recommend that she be maintained on 1 aspirin daily for secondary stroke prevention. Her overall prognosis at this time remains very guarded. Review of Systems Constitutional: Denies chills, Denies fever Eyes: denies blurred vision, denies pain Ears, nose, mouth and throat: Denies headache, Denies sore throat Cardiovascular: Denies chest pain, Denies shortness of breath Respiratory: Denies cough Gastrointestinal: Denies abdominal pain, Denies diarrhea, Denies nausea, Denies vomiting Genitourinary: Denies dysuria, Denies hematuria Musculoskeletal: Denies myalgias Integumentary: Denies pruritus, Denies rash Neurological: Reports sensory deficit, Reports tingling, Denies numbness, Denies weakness Psychiatric: Denies anxiety, Denies depression Endocrine: Denies fatigue, Denies weight change Past Medical History Past Medical History: Asthma, Osteoarthritis (OA), Skin Disorder, Sleep Apnea/ CPAP/BIPAP Additional Past Medical History / Comment(s): 09/13/16 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, ART-has CPAP but doesn't use, arthritis bilateral knees, hips and ankles, psoriases,(family hx of long QT syndrome) History of Any Multi-Drug Resistant Organisms: None Reported Past Surgical History: Hernia Repair ([facility]entral), Hysterectomy Additional Past Surgical History / Comment(s): total hysterectomy Past Anesthesia/Blood Transfusion Reactions: No Reported Reaction Additional Past Anesthesia/Blood Transfusion Reaction / Comment(s): past blood transfusion-no reaction Smoking Status: Former smoker Past Alcohol Use History: Rare Past Drug Use History: None Reported - Past Family History Mother Family Medical History: Asthma, Diabetes Mellitus, Hypertension Additional Family Medical History / Comment(s): Long Qt syndrome Father Family Medical History: Pneumonia Additional Family Medical History / Comment(s): "stomach problems," Father of pneumonia at the age of 58yrs. Medications and Allergies Home Medications Medication Instructions Recorded Confirmed Type Albuterol Inhaler [Ventolin Hfa 1 - 2 puff INHALATION RT-Q6H PRN 03/13/17 History Inhaler] Albuterol Nebulized [Ventolin 2.5 mg INHALATION RT-Q4H PRN 03/13/17 04/21/17 History Nebulized] Allergies Allergy/AdvReac Type Severity Reaction Status Date / Time Penicillins Allergy Unknown Verified 04/21/17 10:24 Childhood Physical Examination - Vital Signs Vital Signs: Vital Signs Temp Pulse Pulse Resp BP BP Pulse Ox 04/21/17 15:17 97.2 F L 77 16 118/64 98 04/21/17 13:00 96.2 F L 76 16 144/95 95 04/21/17 12:37 97.7 F 70 18 126/63 97 04/21/17 11:51 76 18 121/67 96 04/21/17 09:48 99.0 F 85 18 137/86 97 Intake and Output 04/21/17 04/21/17 04/21/17 06:59 14:59 22:59 Intake Total 120 120 Balance 120 120 Intake: Oral 120 120 Other: Weight 147.871 kg Patient Weight 04/22/17 06:59 Weight 147.871 kg - Constitutional General appearance: average body habitus, cooperative - EENT EENT: PERRL, mucous membranes moist - Respiratory Respiratory: lungs clear, normal breath sounds - Cardiovascular Cardiovascular: regular rate, normal S1, normal S2 Extremities: no peripheral edema bilaterally - Gastrointestinal Gastrointestinal: normoactive bowel sounds - Integumentary Integumentary: normal - Neurologic Cranial nerve examination: PERRL, EOMI, VFF, V1/V2/V3 grossly intact, face symmetric (Her face is symmetric with equal for rowing of the forehead muscles bilaterally.), tongue midline, intact gag reflex, intact corneal reflex, normal palatal elevation Speech examination: intact Sensorimotor examination: intact Detailed motor examination: grossly full strength in all extremities Motor examination - right side: 4/5: biceps, triceps, wrist flexion, wrist extension, child day care provider, hip flexors, knee extensors, dorsiflexion, toe extension (EHL) , plantarflexion Motor examination - left side: 4/5: biceps, triceps, wrist flexion, wrist extension, child day care provider, hip flexors, knee extensors, dorsiflexion, toe extension (EHL) , plantarflexion Detailed sensory examination: intact Reflex and gait examination: intact Reflexes: 1+: ankle, bicep, knee, tricep - Musculoskeletal Musculoskeletal: no pain - Psychiatric Psychiatric: mood/affect appropriate, cooperative Results - Laboratory Findings CBC and BMP: 04/21/17 10:05 04/21/17 10:05 Abnormal Lab Findings: Abnormal Labs 04/21/17 04/21/17 04/21/17 10:05 10:05 11:45 Glucose 177 H POC Glucose (mg/dL) Total Creatine Kinase 178 H Urine Appearance Cloudy H Urine Glucose (UA) 1+ H Amorphous Sediment Few H Urine Mucus Rare H 04/21/17 16:49 Glucose POC Glucose (mg/dL) 143 H Total Creatine Kinase Urine Appearance Urine Glucose (UA) Amorphous Sediment Urine Mucus Assessment and Plan (1) Transient cerebral ischemia Status: Acute Code(s): G45.9 - TRANSIENT CEREBRAL ISCHEMIC ATTACK, UNSPECIFIED (2) Transient brainstem ischemia Status: Acute Code(s): G45.9 - TRANSIENT CEREBRAL ISCHEMIC ATTACK, UNSPECIFIED (3) Obstructive sleep apnea Status: Acute Code(s): G47.33 - OBSTRUCTIVE SLEEP APNEA (ADULT) (PEDIATRIC) (4) Hyperlipidemia Status: Acute Code(s): E78.5 - HYPERLIPIDEMIA, UNSPECIFIED Plan: This patient is a 41-year-old right-handed -[place] Citizen female who was admitted to Hospital with symptoms of right-sided facial numbness. Patient states her symptoms started earlier in the week and wears quite intense this morning. She also had difficulty with vision out of her right eye. She was concerned of possibility of acute stroke and decided to come to the emergency room for further evaluation. She was seen in the ER and underwent an initial computed tomography scan of the brain which was reported negative for any acute process. She was admitted to hospital for a complete stroke evaluation. She does have history of remote left-sided Rubalcava's palsy in September 2016. She states her current symptoms are quite different from the previous event. We have recommended further evaluation of this patient for possibility of brainstem ischemia. We are recommending an MRI of the brain for further evaluation. She will undergo a complete stroke evaluation. Would recommend she should be on one baby aspirin 81 mg daily for secondary stroke prevention. She does have a history of obstructive sleep apnea but has not been using her CPAP machine on a regular basis. We're recommending that she should be back on CPAP as soon as possible for further treatment of the ART. We will continue close neurological follow-up for this patient during this admission. Her overall prognosis at this time remains very guarded. Time with Patient: Greater than 30
[2017-04-21] MEDS: FAMOTIDINE 20 MG TAB PO SCH (22:16)
[2017-04-21] MEDS: ATORVASTATIN 80 MG TAB PO SCH (22:16)
[2017-04-22 06:23] LABS: Glucose,Whole Blood 116 mg/dL (75-99)
[2017-04-22] MEDS: INSULIN LISPRO (humaLOG) 300 UNIT/3 ML VIAL SQ SCH ×4 (06:40→20:47)
[2017-04-22] MEDS: SODIUM CHLORIDE 0.9% 1,000 ML IV SCH ×2 (06:41→18:13)
[2017-04-22 08:44] VITALS: RESP 16
[2017-04-22] MEDS: FAMOTIDINE 20 MG TAB PO SCH ×2 (08:44→20:46)
[2017-04-22] MEDS: ENOXAPARIN 40 MG/0.4 ML SYRINGE SQ SCH (08:44)
[2017-04-22] MEDS ORDERED: LORazepam 2 MG/ML SYRINGE IV ONE (09:00)
[2017-04-22 11:52] LABS: Glucose,Whole Blood 124 mg/dL (75-99)
--- NOTE | 2017-04-22 11:54 | P.PN ---
Progress Note - Text Hospitalist: Patient seen and examined at bedside. Her facial paresthesias and weakness in either blurriness on the right have all resolved. She is feeling much better. She denies any chest pain, shortness of breath, nausea, or vomiting. She is currently awaiting MRI. Blood pressure 123/82 heart rate 79 respiration 16 temperature 90.6 E General: non toxic, no distress, appears at stated age Derm: no rashes, no lesions Head: atraumatic, normocephalic, symmetric Eyes: EOMI, no lid lag, anicteric sclera ENT: no post nasal drip, no thrush Mouth: no lip lesion, mucus membranes moist Cardiovascular: S1S2 reg, no murmur, positive posterior tibial pulse bilateral, Lungs: CTA bilateral, no rhonchi, no rales , no accessory muscle use Abdominal: soft, nontender to palpation, no guarding, no appreciable organomegaly Ext: no gross muscle atrophy, no edema, no contractures Neuro: CN II-XI grossly intact, no focal neuro deficits Psych: Alert, oriented, appropriate affect Significant laboratory: LDL 128 and HDL 33 hemoglobin A1c 6.6, all other labs reviewed by me Assessment/plan: R Sided blurriness/facial paresthesia-neurology recommendations appreciated currently awaiting MRI, EEG, and echocardiogram. If those are all negative and a home today. Therapy has evaluated underlying off. Diabetes mellitus type 2 with hemoglobin A1c 6.6-community health educator, low carbohydrate diet, follow-up with PCP, no indication for pharmacotherapy at this time Dyslipidemia-start statin therapy, recommend recheck in 3-6 months Narrative the [employer]ATIONS shunt home in 24-48 hours and results of laboratory testing. Antonette Pollard DO
[2017-04-22] MEDS: ASPIRIN 325 MG TAB PO SCH (12:16)
--- NOTE | 2017-04-22 14:02 | MR ---
EXAMINATION TYPE: MR brain wo con DATE OF EXAM: 04/22/2017 COMPARISON: NONE HISTORY: Right facial numbness rule out VBI CONTRAST: Performed utilizing 0 mL intravenous Gadavist gadolinium contrast. TECHNIQUE: Multiplanar, multiecho imaging on a 3.0 Juju magnet is performed through the brain. Stud y is not performed within 24 hours of arrival to the hospital. The craniovertebral junction is normal. There appears to be an empty sella. The pituitary stalk is in the midline. Diffusion-weighted imaging is performed. No abnormal hyperintensity is present to suggest an acute i ntracranial infarct or acute ischemic change. Punctate hyperintensity within the left thalamus felt to be pulsation artifact. Couple of subcortical white matter changes may be within the inferior medial left temporal lobe. Series 501 image 13. A sm all limbic area of increased signal may be present on right. Ventricles and sulci are appropriate for the patient age. Normal vascular flow voids are within the visualized cranial cerebral vasculature. Basilar artery is normal flow-void. Posterior cerebral vasculature were visualized. IMPRESSIONS: 1. No suspicious vascular changes. 2. No acute ischemic areas.
[2017-04-22 15:17] LABS: Appearance,Urine Clear (Clear); Bilirubin,Urine Negative (Negative); Glucose,Urine (UA) Trace (Negative); Ketones,Urine Negative (Negative); Leukocyte Esterase,Urine Negative (Negative); Nitrite,Urine Negative (Negative); PH, Urine 7.5 (5.0-8.0); Protein,Urine Negative (Negative); Specific Gravity,Urine 1.009 (1.001-1.035); UA Billing (MACRO vs. MICRO) CHEM
[2017-04-22 16:49] LABS: Glucose,Whole Blood 147 mg/dL (75-99)
--- NOTE | 2017-04-22 19:27 | ECHOF ---
Referral Reason:Thrombus MEASUREMENTS -------- HEIGHT: 182.9 cm WEIGHT: 147.9 kg BP: 144/95 RVIDd: 2.8 cm (< 3.3) IVSd: 1.3 cm (0.6 - 1.1) LVIDd: 5.1 cm (3.9 - 5.3) LVPWd: 1.2 cm (0.6 - 1.1) IVSs: 1.4 cm LVIDs: 4.3 cm LVPWs: 1.4 cm LA Diam: 3.1 cm (2.7 - 3.8) Ao Diam: 3.0 cm (2.0 - 3.7) AV Cusp: 2.0 cm (1.5 - 2.6) LA Diam: 3.4 cm (2.7 - 3.8) MV EXCURSION: 16.659 mm (> 18.000) MV EF SLOPE: 84 mm/s (70 - 150) EPSS: 0.8 cm MV E Billy: 0.75 m/s MV DecT: 315 ms MV A Billy: 0.91 m/s MV E/A Ratio: 0.82 RAP: 5.00 mmHg RVSP: 14.17 mmHg FINDINGS -------- Sinus rhythm. This was a technically adequate study. Morbid Obesity There is mild concentric left ventricular hypertrophy. Overall left ventricular systolic function is normal with, an EF between 55 - 60 %. The right ventricle is normal in size. The left atrial size is normal. The right atrial size is normal. The aortic valve is trileaflet, and appears structurally normal. No aortic stenosis or regurgitation. Mild mitral regurgitation is present. Mild tricuspid regurgitation present. There is no evidence of pulmonary hypertension. The right ventricular systolic pressure, as measured by Doppler, is 14.17mmHg. There is no pulmonic regurgitation present. The aortic root size is normal. There is no pericardial effusion. CONCLUSIONS -------- 1. There is mild concentric left ventricular hypertrophy. 2. Overall left ventricular systolic function is normal with, an EF between 55 - 60 %. 3. Mild mitral regurgitation is present. 4. Mild tricuspid regurgitation present. 5. There is no evidence of pulmonary hypertension. 6. The right ventricular systolic pressure, as measured by Doppler, is 14.17mmHg. VACUUM P[employer] FORMING MACHINE OPERATOR: Maribel Villar RDCS
[2017-04-22 20:36] LABS: Glucose,Whole Blood 123 mg/dL (75-99)
[2017-04-22] MEDS: ATORVASTATIN 80 MG TAB PO SCH (20:46)
[2017-04-22 23:43] VITALS: TEMP 97.6
[2017-04-23 06:07] LABS: Glucose,Whole Blood 138 mg/dL (75-99)
[2017-04-23] MEDS: INSULIN LISPRO (humaLOG) 300 UNIT/3 ML VIAL SQ SCH (06:10)
[2017-04-23] MEDS: SODIUM CHLORIDE 0.9% 1,000 ML IV SCH ×2 (06:11→06:13)
[2017-04-23 09:11] VITALS: BP 134/80; PULSE 77
[2017-04-23] MEDS: ENOXAPARIN 40 MG/0.4 ML SYRINGE SQ SCH (09:11)
[2017-04-23] MEDS: FAMOTIDINE 20 MG TAB PO SCH (09:12)
[2017-04-23] MEDS: ASPIRIN 325 MG TAB PO SCH (09:12)
--- NOTE | 2017-04-23 19:28 | P.DS ---
Providers Date of admission: 04/21/17 12:20 Expected date of discharge: 04/23/17 Attending physician: Antonette Porter DO Consults: 04/21/17 12:20 Consult Physician Routine Consulting Provider: Stevan Sykes Consult Reason/Comments: cva Do you want consulting provider notified?: Yes Primary care physician: Raegan Stratton - Discharge Diagnosis(es) (1) Transient cerebral ischemia Status: Acute (2) Morbid obesity Status: Acute (3) Acute ischemic stroke Status: Acute (4) Diabetes mellitus type 2 in obese Status: Acute (5) Dyslipidemia Status: Acute Hospital Course: Patient is a 41-year-old -[place] female with history of Rubalcava's palsy, obstructive sleep apnea without CPAP use, and asthma who presented with complaints of right-sided facial weakness and blurriness. She was admitted for possible posterior circulation stroke. Neurology consultation was requested. She had an MRI of the brain which was negative for acute stroke. Her sugars were monitored and she was found to have diabetes mellitus type 2 with an A1c of 6.6. She met with the dietitian. She was not started on any medications for this and her A1c was barely above normal. She was counseled to try weight loss and carb consistent diet. Her blood sugars remained 130s to 140s here. I told her to follow with her primary physician to see if they would like her to check her blood sugars on a routine basis. She was also found to have dyslipidemia and was started on statin therapy. Her echocardiogram and carotid Dopplers were normal. She was therefore discharged home in stable condition. Pertinent Studies: Echocardiogram negative, carotid Dopplers negative, MRI brain negative, telemetry without signs of arrhythmia. Patient Condition at Discharge: Fair Plan - Discharge Summary New Discharge Prescriptions: New Aspirin 81 mg PO DAILY #30 chewable Atorvastatin [Lipitor] 80 mg PO HS #30 tab No Action Albuterol Nebulized [Ventolin Nebulized] 2.5 mg INHALATION RT-Q4H PRN PRN Reason: Shortness Of Breath Albuterol Inhaler [Ventolin Hfa Inhaler] 1 - 2 puff INHALATION RT-Q6H PRN PRN Reason: Shortness Of Breath Discharge Medication List Albuterol Inhaler [Ventolin Hfa Inhaler] 1 - 2 puff INHALATION RT-Q6H PRN [History] Albuterol Nebulized [Ventolin Nebulized] 2.5 mg INHALATION RT-Q4H PRN 03/13/17 [ History] Aspirin 81 mg PO DAILY #30 chewable 04/23/17 [Rx] Atorvastatin [Lipitor] 80 mg PO HS #30 tab 04/23/17 [Rx] Follow up Appointment(s)/Referral(s): Raegan Stratton MD [Primary Care Provider] - 04/25/17 1:30 pm Patient Instructions/Handouts: Type 2 Diabetes in Adults (DC) Activity/Diet/Wound Care/Special Instructions: low carbohydrate diet, activity as tolerated Discharge Disposition: HOME SELF-CARE Pending Studies Pending Results: EEG.
== END 2017-04-23 11:10 | disposition home or self-care (01) ==
LOC: EC 09:42 → INTOOBSV 12:20 → 6SEL 12:20
PROVIDERS: ADMIT Internal Medicine; ATTEND Internal Medicine
DX: G45.9 Transient cerebral ischemic attack, unspecified (principal); G47.33 Obstructive sleep apnea (adult) (pediatric); J45.909 Unspecified asthma, uncomplicated; E66.01 Morbid (severe) obesity due to excess calories; E11.65 Type 2 diabetes mellitus with hyperglycemia; E78.5 Hyperlipidemia, unspecified; H53.8 Other visual disturbances; M19.90 Unspecified osteoarthritis, unspecified site; L40.9 Psoriasis, unspecified; Z88.0 Allergy status to penicillin; Z79.899 Other long term (current) drug therapy; Z82.49 Family history of ischemic heart disease and other diseases of the circulatory system; Z99.89 Dependence on other enabling machines and devices; Z87.891 Personal history of nicotine dependence; Z86.73 Personal history of transient ischemic attack (TIA), and cerebral infarction without residual deficits; Z68.41 Body mass index [BMI] 40.0-44.9, adult
CPT/HCPCS: 96361 ×2; 96372; 96374; 99285; 36415; 94760; 95819; 93306; 97161; 92610; 80061; 80053; 85652; 83036; 82550; 82553; 83735; 84100; 84443; 84484; 85025; 85610; 85730; 81003; 81001; 70450; 70551; G0378 ×4; J2060; J1650; 93005

== ENCOUNTER 2017-10-24 09:03 | Emergency (ER) | payer OTHER ==
[2017-10-24] MEDS ORDERED: PROPARACAINE 0.5% OPHTH DROPS 15 ML BTL BOTH EYES STA (10:03)
--- NOTE | 2017-10-24 10:07 | ED ---
General Adult HPI - General Chief complaint: Eye Problems Stated complaint: EYE REDNESS Time Seen by Provider: 10/24/17 09:31 Source: patient, RN notes reviewed Mode of arrival: ambulatory Limitations: no limitations - History of Present Illness Initial comments: 41-year-old female presents to the emergency department with a chief complaint of bilateral eye redness. Patient states that this started about a week ago. Patient states that she went to urgent care about 4 days ago. She was started on ALLERGY drops as well as antibiotics. Patient states she continues to have drainage and crusting of the eyes. She states that her eyes are painful. She states that sometimes her vision is blurred. Patient states that she just was not getting better so she thought that she should be re-seen. Patient states she has not seen her eye doctor for this. She did see her eye doctor recently and they stated everything was okay. She denies any high fever with this. There's been no nausea or vomiting. Patient denies any recent fever, chills, shortness of breath, chest pain, back pain, abdominal pain, nausea vomiting, numbness or tingling, dysuria or hematuria, constipation or diarrhea, headaches , or any other current symptoms. - Related Data Home Medications Medication Instructions Recorded Confirmed Albuterol Inhaler [Ventolin Hfa 1 - 2 puff INHALATION RT-Q6H PRN 03/13/17 Inhaler] Aspirin 81 mg PO HS 10/24/17 10/24/17 Cetirizine HCl [Zyrtec ODT] 10 mg PO DAILY PRN 10/24/17 10/24/17 Ciprofloxacin Ophth Soln [Cipro 1 drops BOTH EYES BID 10/24/17 10/24/17 0.3% Ophth Soln] Ketotifen 0.025% Ophth Soln 1 drop BOTH EYES BID PRN 10/24/17 10/24/17 [Zaditor] metFORMIN HCL [Glucophage] 500 mg PO BID 10/24/17 10/24/17 Previous Rx's Medication Instructions Recorded Atorvastatin [Lipitor] 80 mg PO HS #30 tab 04/23/17 Naphazoline-Phenira 0.025-0.3% 2 drops BOTH EYES QID #1 bottle 10/24/17 [Visine-A Ophth Soln] Allergies Allergy/AdvReac Type Severity Reaction Status Date / Time Penicillins Allergy Unknown Verified 10/24/17 09:50 Childhood Review of Systems ROS Statement: Those systems with pertinent positive or pertinent negative responses have been documented in the HPI. ROS Other: All systems not noted in ROS Statement are negative. 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, ART-has CPAP but doesn't use, arthritis bilateral knees, hips and ankles, psoriases,(family hx of long QT syndrome) History of Any Multi-Drug Resistant Organisms: None Reported Past Surgical History: Hernia Repair, Hysterectomy Additional Past Surgical History / Comment(s): total hysterectomy Past Anesthesia/Blood Transfusion Reactions: No Reported Reaction Additional Past Anesthesia/Blood Transfusion Reaction / Comment(s): past blood transfusion-no reaction Past Psychological History: No Psychological Hx Reported Smoking Status: Former smoker Past Alcohol Use History: Rare Past Drug Use History: None Reported - Past Family History Mother Family Medical History: Asthma, Diabetes Mellitus, Hypertension Additional Family Medical History / Comment(s): Long Qt syndrome Father Family Medical History: Pneumonia Additional Family Medical History / Comment(s): "stomach problems," Father of pneumonia at the age of 58yrs. General Exam Limitations: no limitations General appearance: alert, in no apparent distress Eye exam: Present: normal appearance, PERRL, EOMI, conjunctival injection. Absent: scleral icterus, periorbital swelling, periorbital tenderness Pupils: Present: normal accommodation Expanded Eyelids: Normal Inspection: Bilateral Pupils: Regular, Round: Bilateral Sclera/Conjunctival: Injection: Bilateral Visual acuity (R) = 20/: 25 Visual acuity (L) = 20/: 25 With correction: Yes IOP (R) in mmH IOP (L) in mmH IOP measured with: [employer]open ENT exam: Present: normal exam, mucous membranes moist Neck exam: Present: normal inspection. Absent: tenderness, meningismus, lymphadenopathy Respiratory exam: Present: normal lung sounds bilaterally. Absent: respiratory distress, wheezes, rales, rhonchi, stridor Cardiovascular Exam: Present: regular rate, normal rhythm, normal heart sounds. Absent: systolic murmur, diastolic murmur, rubs, gallop, clicks Neurological exam: Present: alert, oriented X3 Psychiatric exam: Present: normal affect, normal mood Skin exam: Present: warm, dry, intact, normal color. Absent: rash Course Vital Signs 10/24/17 09:13 Temperature 97.6 F Pulse Rate 91 Respiratory 18 Rate Blood Pressure 140/79 O2 Sat by Pulse 96 Oximetry Medical Decision Making - Medical Decision Making 41-year-old female presents to the emergency department with a chief complaint of bilateral eye redness and drainage. At this time patient underwent Sonny-Pen that showed bilateral normal pressures of 10. Patient also underwent a slit lamp examination with staining that did not show any corneal abrasion. At this time we discussed patient's symptoms are most likely due to a viral conjunctivitis. We discussed that we will switch her to a different ice to the medication. We did discuss that she is to follow-up with her greenhouse assistant we did discuss return parameters all questions. Patient stated that she understood and she is agreement this plan. All questions have been answered. She will be discharged home. Disposition Clinical Impression: Viral conjunctivitis of both eyes Disposition: HOME SELF-CARE Condition: Stable Instructions: Conjunctivitis (ED) Additional Instructions: Please use medication as discussed. Please follow up with family doctor if symptoms have not improved over the next two days. Please return to the emergency room if your symptoms increase or worsen or for any other concerns. Prescriptions: Naphazoline-Phenira 0.025-0.3% [Visine-A Ophth Soln] 2 drops BOTH EYES QID #1 bottle Referrals: Raegan Stratton MD [Primary Care Provider] - 1-2 days Scar Morales MD [STAFF PHYSICIAN] - 1-2 days Time of Disposition: 10:29
[2017-10-24 10:52] VITALS: BP 154/85; PULSE 83; RESP 16; TEMP 97.8
== END 2017-10-24 10:54 | disposition home or self-care (01) ==
LOC: EC 09:03
DX: B30.9 Viral conjunctivitis, unspecified (principal); E11.9 Type 2 diabetes mellitus without complications; M19.90 Unspecified osteoarthritis, unspecified site; G47.33 Obstructive sleep apnea (adult) (pediatric); Z87.891 Personal history of nicotine dependence; Z79.82 Long term (current) use of aspirin; Z79.84 Long term (current) use of oral hypoglycemic drugs; Z88.0 Allergy status to penicillin; Z99.89 Dependence on other enabling machines and devices
CPT/HCPCS: 99283

== ENCOUNTER 2017-10-29 18:52 | Emergency (ER) | payer OTHER ==
[2017-10-29 18:59] VITALS: TEMP 97.8
[2017-10-29] MEDS ORDERED: SODIUM CHLORIDE 0.9% 1,000 ML IV STA ×2 (19:37)
[2017-10-29] MEDS ORDERED: ONDANSETRON 4 MG/2 ML VIAL IVP STA (19:37)
[2017-10-29] MEDS ORDERED: PANTOPRAZOLE 40 MG/10 ML VIAL IVP STA (19:37)
[2017-10-29] MEDS ORDERED: RX INFO: IV CONTRAST WAS GIVEN 1 EACH MISC MISCELLANE PRN (19:37)
[2017-10-29] MEDS ORDERED: MORPHINE SULFATE 4 MG/ML SYRINGE IVP STA (19:37)
[2017-10-29] MEDS ORDERED: ALBUTEROL NEBULIZED 2.5 MG/3 ML INHALATION STA (19:40)
--- NOTE | 2017-10-29 19:58 | ED ---
Abdominal Pain HPI - General Chief Complaint: Abdominal Pain Stated Complaint: Abd pain sent by Urgent care Time Seen by Provider: 10/29/17 19:17 Source: patient, RN notes reviewed, old records reviewed Mode of arrival: ambulatory Limitations: no limitations - History of Present Illness Initial Comments: This patient is a 41-year-old female presents emergency Department chief complaint of left upper quadrant abdominal pain that started at 3 AM. She is also been having some episodes of wheezing Patient reports that she's had a cough today as well. She denies shortness of breath and chest pain/ . She says the symptoms just started today. [facility] her here for evaluation due to significant abdominal tenderness. Surgical history includes hysterectomy. - Related Data Home Medications Medication Instructions Recorded Confirmed Aspirin 81 mg PO HS 10/24/17 10/30/17 metFORMIN HCL [Glucophage] 500 mg PO BID 10/24/17 10/30/17 Previous Rx's Medication Instructions Recorded Atorvastatin [Lipitor] 80 mg PO HS #30 tab 04/23/17 Acetaminophen-Codeine 300-30mg 1 tab PO Q8H PRN #15 tablet 10/29/17 [Tylenol #3] Allergies Allergy/AdvReac Type Severity Reaction Status Date / Time Penicillins Allergy Unknown Verified 10/30/17 08:12 Childhood Review of Systems ROS Statement: Those systems with pertinent positive or pertinent negative responses have been documented in the HPI. ROS Other: All systems not noted in ROS Statement are negative. 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, ART-has CPAP but doesn't use, arthritis bilateral knees, hips and ankles, psoriases,(family hx of long QT syndrome) History of Any Multi-Drug Resistant Organisms: None Reported Past Surgical History: Hernia Repair, Hysterectomy Additional Past Surgical History / Comment(s): total hysterectomy Past Anesthesia/Blood Transfusion Reactions: No Reported Reaction Additional Past Anesthesia/Blood Transfusion Reaction / Comment(s): past blood transfusion-no reaction Past Psychological History: No Psychological Hx Reported Smoking Status: Former smoker Past Alcohol Use History: Rare Past Drug Use History: None Reported - Past Family History Mother Family Medical History: Asthma, Diabetes Mellitus, Hypertension Additional Family Medical History / Comment(s): Long Qt syndrome Father Family Medical History: Pneumonia Additional Family Medical History / Comment(s): "stomach problems," Father of pneumonia at the age of 58yrs. General Exam - General Exam Comments Initial Comments: This patient is a 41-year-old female. No distress. Limitations: no limitations General appearance: alert, in no apparent distress Head exam: Present: atraumatic, normocephalic, normal inspection Eye exam: Present: normal appearance, PERRL, EOMI. Absent: scleral icterus, conjunctival injection, periorbital swelling ENT exam: Present: normal exam, mucous membranes moist Neck exam: Present: normal inspection. Absent: tenderness, meningismus, lymphadenopathy Respiratory exam: Present: wheezes. Absent: normal lung sounds bilaterally, respiratory distress, rales, rhonchi, stridor Cardiovascular Exam: Present: regular rate, normal rhythm, normal heart sounds. Absent: systolic murmur, diastolic murmur, rubs, gallop, clicks GI/Abdominal exam: Present: soft, tenderness (Left Upper quadrant), normal bowel sounds. Absent: distended, guarding, rebound, rigid Extremities exam: Present: normal inspection, full ROM, normal capillary refill. Absent: tenderness, pedal edema, joint swelling, calf tenderness Neurological exam: Present: alert, oriented X3, CN II-XII intact Psychiatric exam: Present: normal affect, normal mood Skin exam: Present: warm, dry, intact, normal color. Absent: rash Course Vital Signs 10/29/17 10/29/17 10/29/17 18:57 20:17 20:32 Temperature 97.8 F Pulse Rate 97 100 96 Respiratory 20 Rate Blood Pressure 167/90 O2 Sat by Pulse 96 Oximetry 10/29/17 22:12 Temperature 97.8 F Pulse Rate 101 H Respiratory 18 Rate Blood Pressure 120/54 O2 Sat by Pulse 95 Oximetry Medical Decision Making - Medical Decision Making This patient is a 41 year old woman with multiple complaints today. Sent in from [facility] for abdominal pain and LUQ tenderness. She also complains of cough and wheezing for one day. No leg swelling, chest pain, or dyspnea. She relates she has had normal urine and bowel habits. Patient was givne IV fluids and lab work obtained. She has normal lab work. She did have wheezing, given breathing treatment with total resolution of wheezing. Patient did have significant tenderness on exam, cT completed and shows no significant abnormalities. They did mention delayed renal filling,suggestion of renal failure, however patient hs normal kidney function. discussed etiology of pain can be gastritis or ulcer. Will start patient on pepcid. Also will treat patietn for asthmatic bronchitis with steriods and Zpak. Instructed patient to follow up with PCP in 1 day. REtrn parameters discussed. - Lab Data Result diagrams: 10/29/17 20:08 10/29/17 20:08 Lab Results 10/29/17 10/29/17 10/29/17 Range/Units 20:05 20:08 20:08 WBC 8.5 (3.8-10.6) k/uL RBC 4.30 (3.80-5.40) m/uL Hgb 13.1 (11.4-16.0) gm/dL Hct 39.4 (34.0-46.0) % MCV 91.5 (80.0-100.0) fL MCH 30.6 (25.0-35.0) pg MCHC 33.4 (31.0-37.0) g/dL RDW 13.0 (11.5-15.5) % Plt Count 286 (150-450) k/uL Neutrophils % 47 % Lymphocytes % 44 % Monocytes % 4 % Eosinophils % 4 % Basophils % 0 % Neutrophils # 4.0 (1.3-7.7) k/uL Lymphocytes # 3.7 (1.0-4.8) k/uL Monocytes # 0.3 (0-1.0) k/uL Eosinophils # 0.3 (0-0.7) k/uL Basophils # 0.0 (0-0.2) k/uL Sodium 142 (137-145) mmol/L Potassium 4.1 (3.5-5.1) mmol/L Chloride 103 (98-107) mmol/L Carbon Dioxide 28 (22-30) mmol/L Anion Gap 11 mmol/L BUN 10 (7-17) mg/dL Creatinine 0.60 (0.52-1.04) mg/dL Est GFR (MDRD) Af Amer >60 (>60 ml/min/1.73 sqM) Est GFR (MDRD) Non-Af >60 (>60 ml/min/1.73 sqM) Glucose 137 H (74-99) mg/dL Plasma Lactic Acid Miguel Ángel (0.7-2.0) mmol/L Calcium 9.6 (8.4-10.2) mg/dL Total Bilirubin 0.5 (0.2-1.3) mg/dL AST 21 (14-36) U/L ALT 25 (9-52) U/L Alkaline Phosphatase 94 (38-126) U/L Total Protein 7.9 (6.3-8.2) g/dL Albumin 4.1 (3.5-5.0) g/dL Amylase 43 (30-110) U/L Lipase 91 (23-300) U/L Urine Color Light Yellow Urine Appearance Clear (Clear) Urine pH 7.0 (5.0-8.0) Ur Specific [place] 1.005 (1.001-1.035) Urine Protein Negative (Negative) Urine Glucose (UA) 2+ H (Negative) Urine Ketones Negative (Negative) Urine Blood Negative (Negative) Urine Nitrite Negative (Negative) Urine Bilirubin Negative (Negative) Urine Urobilinogen <2.0 (<2.0) mg/dL Ur Leukocyte Esterase Negative (Negative) 10/29/17 Range/Units 20:08 WBC (3.8-10.6) k/uL RBC (3.80-5.40) m/uL Hgb (11.4-16.0) gm/dL Hct (34.0-46.0) % MCV (80.0-100.0) fL MCH (25.0-35.0) pg MCHC (31.0-37.0) g/dL RDW (11.5-15.5) % Plt Count (150-450) k/uL Neutrophils % % Lymphocytes % % Monocytes % % Eosinophils % % Basophils % % Neutrophils # (1.3-7.7) k/uL Lymphocytes # (1.0-4.8) k/uL Monocytes # (0-1.0) k/uL Eosinophils # (0-0.7) k/uL Basophils # (0-0.2) k/uL Sodium (137-145) mmol/L Potassium (3.5-5.1) mmol/L Chloride (98-107) mmol/L Carbon Dioxide (22-30) mmol/L Anion Gap mmol/L BUN (7-17) mg/dL Creatinine (0.52-1.04) mg/dL Est GFR (MDRD) Af Amer (>60 ml/min/1.73 sqM) Est GFR (MDRD) Non-Af (>60 ml/min/1.73 sqM) Glucose (74-99) mg/dL Plasma Lactic Acid Miguel Ángel 1.1 (0.7-2.0) mmol/L Calcium (8.4-10.2) mg/dL Total Bilirubin (0.2-1.3) mg/dL AST (14-36) U/L ALT (9-52) U/L Alkaline Phosphatase (38-126) U/L Total Protein (6.3-8.2) g/dL Albumin (3.5-5.0) g/dL Amylase (30-110) U/L Lipase (23-300) U/L Urine Color Urine Appearance (Clear) Urine pH (5.0-8.0) Ur Specific [place] (1.001-1.035) Urine Protein (Negative) Urine Glucose (UA) (Negative) Urine Ketones (Negative) Urine Blood (Negative) Urine Nitrite (Negative) Urine Bilirubin (Negative) Urine Urobilinogen (<2.0) mg/dL Ur Leukocyte Esterase (Negative) - Radiology Data Radiology results: report reviewed Chest x-ray is negative for any acute process. Fatty infiltration of the liver. Non obstructing left renal calcification. Delayed images show no significant contrast in renal collecting system which raises sussipicioun of renal failure. Correlation recommended. Disposition Clinical Impression: Bronchitis, Abdominal pain, left upper quadrant Disposition: HOME SELF-CARE Condition: Good Instructions: Acute Bronchitis (ED), Abdominal Pain (ED) Additional Instructions: Patient advised to take the medications as prescribed. Follow-up with primary care provider. Return to emergency department if any alarming signs or symptoms occur. Prescriptions: Acetaminophen-Codeine 300-30mg [Tylenol #3] 1 tab PO Q8H PRN #15 tablet PRN Reason: Pain Referrals: Raegan Stratton MD [Primary Care Provider] - 1-2 days Time of Disposition: 22:08
[2017-10-29 20:21] LABS: Basophils % (A) 0 %; Eosinophils # (A) 0.3 k/uL (0-0.7); Eosinophils % (A) 4 %; HCT 39.4 % (34.0-46.0); HGB 13.1 gm/dL (11.4-16.0); Lymphocytes # (A) 3.7 k/uL (1.0-4.8); Lymphocytes % (A) 44 %; MCH 30.6 pg (25.0-35.0); MCHC 33.4 g/dL (31.0-37.0); MCV 91.5 fL (80.0-100.0); Mean Platelet Volume 7.3; Monocytes # (A) 0.3 k/uL (0-1.0); Monocytes % (A) 4 %; Neutrophils % (A) 47 %; Platelet Count 286 k/uL (150-450); WBC 8.5 k/uL (3.8-10.6)
[2017-10-29 20:30] LABS: ALT 25 U/L (9-52); AST 21 U/L (14-36); Albumin 4.1 g/dL (3.5-5.0); Alkaline Phosphatase 94 U/L (38-126); Amylase 43 U/L (30-110); Anion Gap 11 mmol/L; Blood Urea Nitrogen 10 mg/dL (7-17); Calcium 9.6 mg/dL (8.4-10.2); Carbon Dioxide 28 mmol/L (22-30); Chloride 103 mmol/L (98-107); Glucose 137 mg/dL (74-99); Lipase 91 U/L (23-300); Potassium 4.1 mmol/L (3.5-5.1); Sodium 142 mmol/L (137-145); Total Bilirubin 0.5 mg/dL (0.2-1.3); Total Protein 7.9 g/dL (6.3-8.2)
[2017-10-29 20:45] LABS: Appearance,Urine Clear (Clear); Bilirubin,Urine Negative (Negative); Blood,Urine Negative (Negative); Color,Urine Light Yellow; Glucose,Urine (UA) 2+ (Negative); Ketones,Urine Negative (Negative); Leukocyte Esterase,Urine Negative (Negative); Protein,Urine Negative (Negative); Specific Gravity,Urine 1.005 (1.001-1.035); Urobilinogen,Urine <2.0 mg/dL (<2.0)
--- NOTE | 2017-10-29 21:24 | CT ---
EXAMINATION TYPE: CT abdomen pelvis w con DATE OF EXAM: 10/29/2017 COMPARISON: NONE HISTORY: Left sided abdominal pain today. CT DLP: 1862 mGycm Automated exposure control for dose reduction was used. TECHNIQUE: Helical acquisition of images was performed from the lung bases through the pelvis. CONTRAST: Performed without Oral Contrast and with IV Contrast, patient injected with 100 mL of Omnipaque 300. FINDINGS: Lung bases are clear of consolidation. There is no pleural effusion. Heart is enlarged. There is fatty infiltration of the liver. Bile ducts are not dilated. Spleen appears normal. There is no pancreatic mass. Gallbladder appears normal. There is no adrenal mass. Kidneys show satisfactory contrast opacification there is no hydronephrosis . There is a 5 mm calculus in the left renal hilum. There is no retroperitoneal adenopathy. There is no ascites. There is no sign of free air. I see no intestinal wall thickening. There are no dilated l oops. Appendix appears normal. I see no bony destructive process. IMPRESSION: FATTY INFILTRATION OF THE LIVER. NONOBSTRUCTING LEFT RENAL CALCIFICATION. DELAYED IMAGES SHOW NO SIGN IFICANT CONTRAST IN THE RENAL COLLECTING SYSTEMS AT 2 MINUTES THAT RAISES THE POSSIBILITY OF RENAL FA ILURE. CLINICAL CORRELATION IS RECOMMENDED.
--- NOTE | 2017-10-29 21:25 | XR ---
EXAMINATION TYPE: XR chest 2V DATE OF EXAM: 10/29/2017 COMPARISON: 03/13/2017 HISTORY: Abdominal pain TECHNIQUE: Frontal and lateral views of the chest are obtained. FINDINGS: There is no heart failure nor confluent pneumonic infiltrate. There is mild linear density at the right lung base. Bony thorax is intact. IMPRESSION: Subsegmental atelectasis at the right lung base is new compared to old exam. Normal hear t.
[2017-10-29 22:16] VITALS: BP 120/54; PULSE 101; RESP 18
== END 2017-10-29 22:31 | disposition home or self-care (01) ==
LOC: EC 18:52
DX: J40 Bronchitis, not specified as acute or chronic (principal); R10.12 Left upper quadrant pain; E11.9 Type 2 diabetes mellitus without complications; G47.30 Sleep apnea, unspecified; Z99.89 Dependence on other enabling machines and devices; Z87.891 Personal history of nicotine dependence; Z79.82 Long term (current) use of aspirin; Z79.84 Long term (current) use of oral hypoglycemic drugs; Z88.0 Allergy status to penicillin; Z90.710 Acquired absence of both cervix and uterus
CPT/HCPCS: 36415; 80053; 82150; 83605; 83690; 85025; 81003; 87040; 71046; 74177; 99285; 96374; 96375 ×2; 96361 ×2; J2270; J2405; Q9967; C9113

== ENCOUNTER 2017-10-30 07:09 | Emergency (ER) | payer OTHER ==
[2017-10-30 07:15] VITALS: RESP 18
[2017-10-30] MEDS ORDERED: METOCLOPRAMIDE 5 MG/ML 2 ML VIAL IVP STA (08:14)
[2017-10-30] MEDS ORDERED: SODIUM CHLORIDE 0.9% 1,000 ML IV STA (08:14)
[2017-10-30] MEDS ORDERED: KETOROLAC 30 MG/ML 1 ML VIAL IVP STA (08:14)
--- NOTE | 2017-10-30 08:23 | ED ---
General Adult HPI - General Chief complaint: Abdominal Pain Stated complaint: abd pain,headache Time Seen by Provider: 10/30/17 07:51 Source: patient, RN notes reviewed Mode of arrival: ambulatory Limitations: no limitations - History of Present Illness Initial comments: 41 yo female presents to the ER with cc of left upper quadrant abdominal pain and headache. Patient was seen here yesterday for this pain. SHe had imaging and lab work performed that did not show any acute findings. Patient states that she continues to have this left sided abdominal pain as well as a headache today so she thought she should be reseen. SHe does state she was able to eat dinner last night. THere has been nausea without vomiting. SHe denies any diarrhea. Patient states no history of this pain in the past. NO chest pain or SOB. Pain has no radiation to the left side of abdomen. NO other complaints. - Related Data Home Medications Medication Instructions Recorded Confirmed Aspirin 81 mg PO HS 10/24/17 10/30/17 metFORMIN HCL [Glucophage] 500 mg PO BID 10/24/17 10/30/17 Previous Rx's Medication Instructions Recorded Atorvastatin [Lipitor] 80 mg PO HS #30 tab 04/23/17 Acetaminophen-Codeine 300-30mg 1 tab PO Q8H PRN #15 tablet 10/29/17 [Tylenol #3] Dicyclomine [Bentyl] 10 mg PO TID #20 capsule 10/30/17 Ondansetron Odt [Zofran ODT] 4 mg PO Q8HR PRN #20 tab 10/30/17 Allergies Allergy/AdvReac Type Severity Reaction Status Date / Time Penicillins Allergy Unknown Verified 10/30/17 08:12 Childhood Review of Systems ROS Statement: Those systems with pertinent positive or pertinent negative responses have been documented in the HPI. ROS Other: All systems not noted in ROS Statement are negative. 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, ART-has CPAP but doesn't use, arthritis bilateral knees, hips and ankles, psoriases,(family hx of long QT syndrome) History of Any Multi-Drug Resistant Organisms: None Reported Past Surgical History: Hernia Repair, Hysterectomy Additional Past Surgical History / Comment(s): total hysterectomy Past Anesthesia/Blood Transfusion Reactions: No Reported Reaction Additional Past Anesthesia/Blood Transfusion Reaction / Comment(s): past blood transfusion-no reaction Past Psychological History: No Psychological Hx Reported Smoking Status: Former smoker Past Alcohol Use History: Rare Past Drug Use History: None Reported - Past Family History Mother Family Medical History: Asthma, Diabetes Mellitus, Hypertension Additional Family Medical History / Comment(s): Long Qt syndrome Father Family Medical History: Pneumonia Additional Family Medical History / Comment(s): "stomach problems," Father of pneumonia at the age of 58yrs. General Exam - General Exam Comments Initial Comments: General: The patient is awake and alert, in no distress, and does not appear acutely ill. Eye: Pupils are equal, round and reactive to light, extra-ocular movements are intact; there is normal conjunctiva bilaterally. No signs of icterus. Ears, nose, mouth and throat: There are moist mucous membranes. Neck: The neck is supple, there is no tenderness. Cardiovascular: There is a regular rate and rhythm. No murmur, rub or gallop is appreciated. Respiratory: Lungs are clear to auscultation, respirations are non-labored, breath sounds are equal. No wheezes, stridor, rales, or rhonchi. Gastrointestinal: Soft, non-distended, left sided minimally tender abdomen without masses or organomegaly noted. There is no rebound or guarding present. No CVA tenderness. Bowel sounds are unremarkable. Back: There is no tenderness to palpation in the midline. There is no obvious deformity. No rashes noted. Musculoskeletal: Normal ROM, no tenderness, There is no pedal edema. There is no calf tenderness or swelling. Sensation intact. Pulses equal bilaterally 2+. Neurological: CN II-XII intact, There are no obvious motor or sensory deficits. Coordination appears grossly intact. Speech is normal. Skin: Skin is warm and dry and no rashes or lesions are noted. Psychiatric: Cooperative, appropriate mood & affect, normal judgment. Limitations: no limitations Course Vital Signs 10/30/17 10/30/17 07:13 09:27 Temperature 97.9 F Pulse Rate 83 94 Respiratory 18 18 Rate Blood Pressure 167/89 130/57 O2 Sat by Pulse 94 L 94 L Oximetry EKG Findings - EKG Comments: EKG Findings:: normal sinus rhythm 98 bpm, normal axis, no atopy, no S-T depressions or elevations, Medical Decision Making - Medical Decision Making 41 yo female presents to the ER with cc of left sided abdominal pain. At this time patient's ultrasound and lab work has been reviewed. At this time there continues to be no acute process to account for the patient's symptoms. This time we discussed most likely a viral like syndrome. We discussed we'll start her on Zofran and Bentyl for home. She states she is feeling better at this time. All questions have been answered. She will be discharged. - Lab Data Result diagrams: 10/30/17 07:34 10/30/17 07:34 Lab Results 10/30/17 10/30/17 10/30/17 Range/Units 07:34 07:34 07:34 WBC 6.6 (3.8-10.6) k/uL RBC 4.26 (3.80-5.40) m/uL Hgb 13.0 (11.4-16.0) gm/dL Hct 40.2 (34.0-46.0) % MCV 94.4 (80.0-100.0) fL MCH 30.5 (25.0-35.0) pg MCHC 32.3 (31.0-37.0) g/dL RDW 12.8 (11.5-15.5) % Plt Count 286 (150-450) k/uL Neutrophils % 50 % Lymphocytes % 39 % Monocytes % 5 % Eosinophils % 4 % Basophils % 1 % Neutrophils # 3.3 (1.3-7.7) k/uL Lymphocytes # 2.5 (1.0-4.8) k/uL Monocytes # 0.4 (0-1.0) k/uL Eosinophils # 0.3 (0-0.7) k/uL Basophils # 0.0 (0-0.2) k/uL Sodium 141 (137-145) mmol/L Potassium 4.5 (3.5-5.1) mmol/L Chloride 107 (98-107) mmol/L Carbon Dioxide 26 (22-30) mmol/L Anion Gap 8 mmol/L BUN 10 (7-17) mg/dL Creatinine 0.64 (0.52-1.04) mg/dL Est GFR (MDRD) Af Amer >60 (>60 ml/min/1.73 sqM) Est GFR (MDRD) Non-Af >60 (>60 ml/min/1.73 sqM) Glucose 197 H (74-99) mg/dL Plasma Lactic Acid Miguel Ángel 0.9 (0.7-2.0) mmol/L Calcium 8.9 (8.4-10.2) mg/dL Total Bilirubin 0.4 (0.2-1.3) mg/dL AST 19 (14-36) U/L ALT 27 (9-52) U/L Alkaline Phosphatase 86 (38-126) U/L Troponin I (0.000-0.034) ng/mL Total Protein 6.8 (6.3-8.2) g/dL Albumin 3.5 (3.5-5.0) g/dL Amylase 39 (30-110) U/L Lipase 97 (23-300) U/L Urine Color Urine Appearance (Clear) Urine pH (5.0-8.0) Ur Specific [place] (1.001-1.035) Urine Protein (Negative) Urine Glucose (UA) (Negative) Urine Ketones (Negative) Urine Blood (Negative) Urine Nitrite (Negative) Urine Bilirubin (Negative) Urine Urobilinogen (<2.0) mg/dL Ur Leukocyte Esterase (Negative) 10/30/17 10/30/17 Range/Units 07:34 10:00 WBC (3.8-10.6) k/uL RBC (3.80-5.40) m/uL Hgb (11.4-16.0) gm/dL Hct (34.0-46.0) % MCV (80.0-100.0) fL MCH (25.0-35.0) pg MCHC (31.0-37.0) g/dL RDW (11.5-15.5) % Plt Count (150-450) k/uL Neutrophils % % Lymphocytes % % Monocytes % % Eosinophils % % Basophils % % Neutrophils # (1.3-7.7) k/uL Lymphocytes # (1.0-4.8) k/uL Monocytes # (0-1.0) k/uL Eosinophils # (0-0.7) k/uL Basophils # (0-0.2) k/uL Sodium (137-145) mmol/L Potassium (3.5-5.1) mmol/L Chloride (98-107) mmol/L Carbon Dioxide (22-30) mmol/L Anion Gap mmol/L BUN (7-17) mg/dL Creatinine (0.52-1.04) mg/dL Est GFR (MDRD) Af Amer (>60 ml/min/1.73 sqM) Est GFR (MDRD) Non-Af (>60 ml/min/1.73 sqM) Glucose (74-99) mg/dL Plasma Lactic Acid Migeul Ángel (0.7-2.0) mmol/L Calcium (8.4-10.2) mg/dL Total Bilirubin (0.2-1.3) mg/dL AST (14-36) U/L ALT (9-52) U/L Alkaline Phosphatase (38-126) U/L Troponin I <0.012 (0.000-0.034) ng/mL Total Protein (6.3-8.2) g/dL Albumin (3.5-5.0) g/dL Amylase (30-110) U/L Lipase (23-300) U/L Urine Color Yellow Urine Appearance Clear (Clear) Urine pH 6.5 (5.0-8.0) Ur Specific [place] 1.012 (1.001-1.035) Urine Protein Negative (Negative) Urine Glucose (UA) 3+ H (Negative) Urine Ketones Negative (Negative) Urine Blood Negative (Negative) Urine Nitrite Negative (Negative) Urine Bilirubin Negative (Negative) Urine Urobilinogen 2.0 (<2.0) mg/dL Ur Leukocyte Esterase Negative (Negative) - Radiology Data Radiology results: report reviewed, image reviewed Disposition Clinical Impression: Left sided abdominal pain, Headache Disposition: HOME SELF-CARE Condition: Stable Instructions: Abdominal Pain (ED) Additional Instructions: Please use medication as discussed. Please follow up with family doctor if symptoms have not improved over the next two days. Please return to the emergency room if your symptoms increase or worsen or for any other concerns. Prescriptions: Dicyclomine [Bentyl] 10 mg PO TID #20 capsule Ondansetron Odt [Zofran ODT] 4 mg PO Q8HR PRN #20 tab PRN Reason: Nausea Referrals: Raegan Stratton MD [Primary Care Provider] - 1-2 days Time of Disposition: 11:57
[2017-10-30 08:46] LABS: Basophils % (A) 1 %; Eosinophils # (A) 0.3 k/uL (0-0.7); Eosinophils % (A) 4 %; HCT 40.2 % (34.0-46.0); Lymphocytes # (A) 2.5 k/uL (1.0-4.8); Lymphocytes % (A) 39 %; MCH 30.5 pg (25.0-35.0); MCHC 32.3 g/dL (31.0-37.0); MCV 94.4 fL (80.0-100.0); Mean Platelet Volume 7.3; Monocytes # (A) 0.4 k/uL (0-1.0); Monocytes % (A) 5 %; Neutrophils # (A) 3.3 k/uL (1.3-7.7); Neutrophils % (A) 50 %; Platelet Count 286 k/uL (150-450); RBC 4.26 m/uL (3.80-5.40); RDW 12.8 % (11.5-15.5); WBC 6.6 k/uL (3.8-10.6)
[2017-10-30 09:10] LABS: ALT 27 U/L (9-52); AST 19 U/L (14-36); Albumin 3.5 g/dL (3.5-5.0); Alkaline Phosphatase 86 U/L (38-126); Amylase 39 U/L (30-110); Anion Gap 8 mmol/L; Blood Urea Nitrogen 10 mg/dL (7-17); Calcium 8.9 mg/dL (8.4-10.2); Carbon Dioxide 26 mmol/L (22-30); Chloride 107 mmol/L (98-107); Glucose 197 mg/dL (74-99); Lipase 97 U/L (23-300); Potassium 4.5 mmol/L (3.5-5.1); Sodium 141 mmol/L (137-145); Total Bilirubin 0.4 mg/dL (0.2-1.3); Total Protein 6.8 g/dL (6.3-8.2)
[2017-10-30] MEDS ORDERED: DICYCLOMINE 10 MG/ML 2 ML AMP IM STA (09:18)
[2017-10-30] MEDS ORDERED: ORPHENADRINE 30 MG/ML 2 ML VIAL IVP STA (09:47)
[2017-10-30] MEDS ORDERED: SODIUM CHLORIDE 0.9% 500 ML IV STA (10:04)
--- NOTE | 2017-10-30 11:01 | US ---
EXAMINATION TYPE: US abdomen limited DATE OF EXAM: 10/30/2017 COMPARISON: NONE CLINICAL HISTORY: Pain. Left sided abdominal pain EXAM MEASUREMENTS: Spleen: wnl Left Kidney: wnl Technical limitations due to patient's body habitus 1. Spleen: appears wnl as visualized 2. Left Kidney: difficult to visualize - possible dense echogenic area mid = 0.7cm IMPRESSION: 1. The spleen is not enlarged. 2. I cannot exclude a nonobstructing left-sided renal calculus.
[2017-10-30 11:41] LABS: Appearance,Urine Clear (Clear); Bilirubin,Urine Negative (Negative); Blood,Urine Negative (Negative); Color,Urine Yellow; Glucose,Urine (UA) 3+ (Negative); Ketones,Urine Negative (Negative); Leukocyte Esterase,Urine Negative (Negative); PH, Urine 6.5 (5.0-8.0); Protein,Urine Negative (Negative); Specific Gravity,Urine 1.012 (1.001-1.035)
[2017-10-30 12:09] VITALS: BP 124/69; PULSE 72; TEMP 97.4
== END 2017-10-30 12:08 | disposition home or self-care (01) ==
LOC: EC 07:09
DX: R10.12 Left upper quadrant pain (principal); R51 Headache; R11.0 Nausea; E11.9 Type 2 diabetes mellitus without complications; G47.30 Sleep apnea, unspecified; Z99.89 Dependence on other enabling machines and devices; Z87.891 Personal history of nicotine dependence; Z79.82 Long term (current) use of aspirin; Z79.84 Long term (current) use of oral hypoglycemic drugs; Z88.0 Allergy status to penicillin; Z90.710 Acquired absence of both cervix and uterus
CPT/HCPCS: 36415; 93005; 80053; 82150; 83605; 83690; 84484; 85025; 81003; 87040; 76705; 99284; 96374; 96375 ×2; 96361 ×4; 96372; J0500; J2360; J2765; J1885

== ENCOUNTER 2018-11-03 14:56 | Inpatient (IN) | payer OTHER ==
[2018-11-03] MEDS ORDERED: ASPIRIN 81 MG PO STA (15:19)
--- NOTE | 2018-11-03 15:23 | ED ---
General Adult HPI - General Chief complaint: Chest Pain Stated complaint: Lt arm pain, tightness in chest Time Seen by Provider: 11/03/18 15:05 Source: patient Mode of arrival: ambulatory Limitations: no limitations - History of Present Illness Initial comments: Dictation was produced using [employer] Access [employer] dictation software. please excuse any grammatical, word or spelling errors. Chief Complaint: 42-year-old [place] past medical history asthma, diabetes, sleep apnea presents with chest pain with radiation to the left upper extremity. History of Present Illness: Patient states she woke up this morning with left upper extremity symptoms. She describes a pins and needle type sensation in the left upper extremity. Shortly after patient began experiencing some crushing chest pressure to the anterior chest. Patient has any history of coronary artery disease. Patient denies ever seeing a bonding molder past. Patient denies any radiation of pain to her back. She states the pain is dull and not sharp in nature. Denies any weakness to the left upper extremity. No cough. The ROS documented in this emergency department record has been reviewed and confirmed by me. Those systems with pertinent positive or negative responses have been documented in the HPI. All other systems are other negative and/or noncontributory. PHYSICAL EXAM: General Impression: Alert and oriented x3, not in acute distress HEENT: Normocephalic atraumatic, extra-ocular movements intact, pupils equal and reactive to light bilaterally, mucous membranes moist. Cardiovascular: Heart regular rate and rhythm, S1&S2 audible, no murmurs, rubs or gallops Chest: Lungs clear to auscultation bilaterally, no rhonchi, no wheeze, no rales Abdomen: Bowel sounds present, abdomen soft, non-tender, non-distended, no organomegaly Musculoskeletal: Pulses present and equal in all extremities, no peripheral edema Motor: Power 5/5 bilaterally, no focal deficits noted Neurological: CN II-XII grossly intact, no focal motor or sensory deficits noted Skin: Intact with no visualized rashes Psych: Normal affect and mood ED course: 42 year-old female with chief complaint of chest pain with paresthesias to the left upper extremity. Patient states she has some mild chest symptoms. She appears to be in no distress. Patient has equal pulses of the bilateral upper extremities. There is no clinical suspicion of acute aortic dissection at this time given her well-appearing nature patient and benign physical examination.Lab data evaluation obtained. CBC unremarkable. Coag panel unremarkable. D-dimer 0.57. Metabolic panel and cardiac enzymes are negative. Chest x-ray is unremarkable. Given elevated d-dimer CT angiogram of the chest was performed. No radiographic evidence for dissection or pulmonary embolus. Patient given aspirin. Patient's clinical presentation consistent with atypical chest pain with typical features. Patient risk factors and current symptomatology I believe patient would benefit from inpatient observation for suture troponins possible cardiac stress test. EKG interpretation: Ventricular rate 83, normal sinus rhythm, ID interval 184, QS 90, QTc 458. No ID prolongation, no QTC prolongation, no ST or T-wave changes noted. Overall, this EKG is unremarkable - Related Data Home Medications Medication Instructions Recorded Confirmed Albuterol Nebulized [Ventolin 2.5 mg INHALATION Q6H PRN 11/03/18 11/03/18 Nebulized] Atorvastatin [Lipitor] 80 mg PO DAILY 11/03/18 11/03/18 Lisinopril [Zestril] 10 mg PO DAILY 11/03/18 11/03/18 glipiZIDE [Glucotrol] 10 mg PO BID 11/03/18 11/03/18 metFORMIN HCL 1,000 mg PO BID 11/03/18 11/03/18 Allergies Allergy/AdvReac Type Severity Reaction Status Date / Time Penicillins Allergy Unknown Verified 11/03/18 16:27 Childhood Review of Systems ROS Statement: Those systems with pertinent positive or pertinent negative responses have been documented in the HPI. ROS Other: All systems not noted in ROS Statement are negative. 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, ART-has CPAP but doesn't use, arthritis bilateral knees, hips and ankles, psoriases,(family hx of long QT syndrome) History of Any Multi-Drug Resistant Organisms: None Reported Past Surgical History: Hernia Repair, Hysterectomy Additional Past Surgical History / Comment(s): total hysterectomy Past Anesthesia/Blood Transfusion Reactions: No Reported Reaction Additional Past Anesthesia/Blood Transfusion Reaction / Comment(s): past blood transfusion-no reaction Past Psychological History: No Psychological Hx Reported Smoking Status: Former smoker Past Alcohol Use History: Rare Past Drug Use History: None Reported - Past Family History Mother Family Medical History: Asthma, Diabetes Mellitus, Hypertension Additional Family Medical History / Comment(s): Long Qt syndrome Father Family Medical History: Pneumonia Additional Family Medical History / Comment(s): "stomach problems," Father of pneumonia at the age of 58yrs. General Exam Limitations: no limitations Course Vital Signs 11/03/18 11/03/18 11/03/18 15:00 15:22 15:30 Temperature 97.8 F Pulse Rate 81 85 79 Respiratory 18 17 21 Rate Blood Pressure 132/88 137/91 O2 Sat by Pulse 97 Oximetry 11/03/18 11/03/18 11/03/18 15:40 15:50 16:00 Temperature Pulse Rate Respiratory Rate Blood Pressure 126/83 131/67 131/67 O2 Sat by Pulse 97 95 Oximetry 11/03/18 11/03/18 11/03/18 16:10 16:20 16:30 Temperature Pulse Rate Respiratory Rate Blood Pressure 133/85 125/47 125/47 O2 Sat by Pulse 97 95 94 L Oximetry Medical Decision Making - Lab Data Result diagrams: 11/03/18 15:21 11/03/18 15:21 Lab Results 11/03/18 11/03/18 11/03/18 Range/Units 15:21 15:21 15:21 WBC 4.6 (3.8-10.6) k/uL RBC 4.50 (3.80-5.40) m/uL Hgb 13.9 (11.4-16.0) gm/dL Hct 43.1 (34.0-46.0) % MCV 95.7 (80.0-100.0) fL MCH 30.9 (25.0-35.0) pg MCHC 32.3 (31.0-37.0) g/dL RDW 13.4 (11.5-15.5) % Plt Count 267 (150-450) k/uL Neutrophils % 41 % Lymphocytes % 51 % Monocytes % 4 % Eosinophils % 2 % Basophils % 1 % Neutrophils # 1.9 (1.3-7.7) k/uL Lymphocytes # 2.3 (1.0-4.8) k/uL Monocytes # 0.2 (0-1.0) k/uL Eosinophils # 0.1 (0-0.7) k/uL Basophils # 0.0 (0-0.2) k/uL PT 9.7 (9.0-12.0) sec INR 0.9 (<1.2) APTT 25.6 (22.0-30.0) sec D-Dimer 0.57 (<0.60) mg/L FEU Sodium 140 (137-145) mmol/L Potassium 4.1 (3.5-5.1) mmol/L Chloride 105 (98-107) mmol/L Carbon Dioxide 27 (22-30) mmol/L Anion Gap 8 mmol/L BUN 11 (7-17) mg/dL Creatinine 0.54 (0.52-1.04) mg/dL Est GFR (CKD-EPI)AfAm >90 (>60 ml/min/1.73 sqM) Est GFR (CKD-EPI)NonAf >90 (>60 ml/min/1.73 sqM) Glucose 287 H (74-99) mg/dL Calcium 9.3 (8.4-10.2) mg/dL Magnesium 1.8 (1.6-2.3) mg/dL Total Bilirubin 0.4 (0.2-1.3) mg/dL AST 18 (14-36) U/L ALT 27 (9-52) U/L Alkaline Phosphatase 124 (38-126) U/L Troponin I (0.000-0.034) ng/mL Total Protein 7.2 (6.3-8.2) g/dL Albumin 3.8 (3.5-5.0) g/dL Lipase 93 (23-300) U/L 11/03/18 Range/Units 15:21 WBC (3.8-10.6) k/uL RBC (3.80-5.40) m/uL Hgb (11.4-16.0) gm/dL Hct (34.0-46.0) % MCV (80.0-100.0) fL MCH (25.0-35.0) pg MCHC (31.0-37.0) g/dL RDW (11.5-15.5) % Plt Count (150-450) k/uL Neutrophils % % Lymphocytes % % Monocytes % % Eosinophils % % Basophils % % Neutrophils # (1.3-7.7) k/uL Lymphocytes # (1.0-4.8) k/uL Monocytes # (0-1.0) k/uL Eosinophils # (0-0.7) k/uL Basophils # (0-0.2) k/uL PT (9.0-12.0) sec INR (<1.2) APTT (22.0-30.0) sec D-Dimer (<0.60) mg/L FEU Sodium (137-145) mmol/L Potassium (3.5-5.1) mmol/L Chloride (98-107) mmol/L Carbon Dioxide (22-30) mmol/L Anion Gap mmol/L BUN (7-17) mg/dL Creatinine (0.52-1.04) mg/dL Est GFR (CKD-EPI)AfAm (>60 ml/min/1.73 sqM) Est GFR (CKD-EPI)NonAf (>60 ml/min/1.73 sqM) Glucose (74-99) mg/dL Calcium (8.4-10.2) mg/dL Magnesium (1.6-2.3) mg/dL Total Bilirubin (0.2-1.3) mg/dL AST (14-36) U/L ALT (9-52) U/L Alkaline Phosphatase (38-126) U/L Troponin I <0.012 (0.000-0.034) ng/mL Total Protein (6.3-8.2) g/dL Albumin (3.5-5.0) g/dL Lipase (23-300) U/L Disposition Clinical Impression: Chest pain Disposition: ADMITTED IP TO THIS [facility] Condition: Good Referrals: Raegan Stratton MD [Primary Care Provider] - 1-2 days Decision Time: 17:28
[2018-11-03 15:45] LABS: Basophils % (A) 1 %; Eosinophils # (A) 0.1 k/uL (0-0.7); Eosinophils % (A) 2 %; HCT 43.1 % (34.0-46.0); HGB 13.9 gm/dL (11.4-16.0); Lymphocytes # (A) 2.3 k/uL (1.0-4.8); Lymphocytes % (A) 51 %; MCH 30.9 pg (25.0-35.0); MCHC 32.3 g/dL (31.0-37.0); MCV 95.7 fL (80.0-100.0); Mean Platelet Volume 6.8; Monocytes # (A) 0.2 k/uL (0-1.0); Monocytes % (A) 4 %; Neutrophils # (A) 1.9 k/uL (1.3-7.7); Neutrophils % (A) 41 %; Platelet Count 267 k/uL (150-450); RDW 13.4 % (11.5-15.5); WBC 4.6 k/uL (3.8-10.6)
[2018-11-03 16:00] LABS: ALT 27 U/L (9-52); AST 18 U/L (14-36); Albumin 3.8 g/dL (3.5-5.0); Alkaline Phosphatase 124 U/L (38-126); Anion Gap 8 mmol/L; Blood Urea Nitrogen 11 mg/dL (7-17); Calcium 9.3 mg/dL (8.4-10.2); Carbon Dioxide 27 mmol/L (22-30); Chloride 105 mmol/L (98-107); Glucose 287 mg/dL (74-99); Lipase 93 U/L (23-300); Magnesium 1.8 mg/dL (1.6-2.3); Potassium 4.1 mmol/L (3.5-5.1); Sodium 140 mmol/L (137-145); Total Bilirubin 0.4 mg/dL (0.2-1.3); Total Protein 7.2 g/dL (6.3-8.2)
--- NOTE | 2018-11-03 16:05 | XR ---
EXAMINATION TYPE: XR chest 2V DATE OF EXAM: 11/03/2018 COMPARISON: Chest x-ray October 29, 2017 HISTORY: History of asthma and diabetes with chest and abdominal pain. TECHNIQUE: Frontal and lateral views of the chest are obtained. FINDINGS: Multiple overlying EKG leads are seen. There is no focal air space opacity, pleural effusi on, or pneumothorax seen. The cardiac silhouette size is stable and upper limits of normal. The os seous structures are intact. IMPRESSION: No acute cardiopulmonary process. No significant change from prior.
[2018-11-03 16:19] LABS: D-Dimer 0.57 mg/L FEU (<0.60); INR 0.9 (<1.2); Partial Thromboplastin Time 25.6 sec (22.0-30.0); Prothrombin Time 9.7 sec (9.0-12.0)
--- NOTE | 2018-11-03 17:11 | CT ---
EXAMINATION TYPE: CT angio chest with contrast and with 3-D reconstruction renderings DATE OF EXAM: 11/03/2018 5:00 PM COMPARISON: None HISTORY: Left arm pain and numbness with chest tightness. CT DLP: 709.5 mGycm Automated exposure control for dose reduction was used. CONTRAST: CTA scan of the thorax is performed with IV Contrast, patient injected with 100 mL of Isovu e 300, pulmonary embolism protocol. Radiographic instructions. FINDINGS: LUNGS: The lungs are grossly clear, there is no concerning parenchymal mass or nodule identified. Th ere is no pleural effusion or pneumothorax seen. The tracheobronchial tree is patent. MEDIASTINUM: There is mild-moderate enhancement of the pulmonary artery and its branches, with no CT evidence for pulmonary embolism. The aorta is unremarkable in appearance. There are no greater than 1 cm hilar or mediastinal lymph nodes. There is no cardiomegaly. No pericardial effusion is seen. OTHER: No additional significant abnormality is seen. IMPRESSION: NO ACUTE PROCESS.
[2018-11-03] MEDS ORDERED: NITROGLYCERIN SL TABS 0.4 MG TAB SUBLINGUAL PRN (17:28)
[2018-11-03 18:35] VITALS: BMI 45.0
--- NOTE | 2018-11-03 18:53 | P.HPIM ---
History of Present Illness H&P Date: 11/03/18 Chief Complaint: chest pain The patient is a morbidly obese 42-year-old -[place] female with a past with a history of type 2 diabetes, essential hypertension, hyperlipidemia, history of TIA who presents to the ER via private vehicle with chief complaint of chest pain and left upper extremity numbness and tingling. Apparently early this morning the patient woke up with left upper extremity numbness and tingling and pain radiating from her left shoulder down to her forearm with no associated weakness. Later during the day the patient also noted 8 out of 10 substernal chest tightness without any associated shortness of breath nausea vomiting or diaphoresis. She denied any focal weakness, slurred speech, headaches or blurry vision. On arrival here the patient was given nitroglycerin and aspirin which lowered her pain down to 2/10. The patient also reports increasing polyuria and frequency but denies any dysuria flank pain or suprapubic tenderness. The patient does admit that her compliance to her diabetic regimen has not been the best. The patient does report a history of having previous stress test done approximately 2 years ago. In the ER the patient had a EKG showed normal sinus rhythm with no acute suggestion of acute ischemia, troponins were negative at less than 0.012. 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 She is independent. Smoking Status: Former smoker Past Alcohol Use History: Rare Additional Past Alcohol Use History / Comment(s): Started smoking age 13, quit 2006, smoked 1 ppd Past Drug Use History: None Reported - Past Family History Mother Family Medical History: Asthma, Diabetes Mellitus, Hypertension Additional Family Medical History / Comment(s): Long Qt syndrome Father Family Medical History: Pneumonia Additional Family Medical History / Comment(s): "stomach problems," Father of pneumonia at the age of 58yrs. Medications and Allergies Home Medications Medication Instructions Recorded Confirmed Type Albuterol Nebulized [Ventolin 2.5 mg INHALATION Q6H PRN 11/03/18 11/03/18 History Nebulized] Atorvastatin [Lipitor] 80 mg PO DAILY 11/03/18 11/03/18 History Lisinopril [Zestril] 10 mg PO DAILY 11/03/18 11/03/18 History glipiZIDE [Glucotrol] 10 mg PO BID 11/03/18 11/03/18 History metFORMIN HCL 1,000 mg PO BID 11/03/18 11/03/18 History Allergies Allergy/AdvReac Type Severity Reaction Status Date / Time Penicillins Allergy Unknown Verified 11/03/18 16:27 Childhood Physical Exam Vitals: Vital Signs Temp Pulse Pulse Resp BP BP Pulse Ox 11/03/18 18:43 18 11/03/18 18:36 97.8 F 76 18 160/105 95 11/03/18 17:40 82 16 152/89 96 11/03/18 17:35 97.7 F 79 14 152/89 97 11/03/18 17:30 81 6 L 119/80 11/03/18 17:20 80 16 119/80 93 L 11/03/18 17:10 80 21 131/91 93 L 11/03/18 17:00 77 11 L 11/03/18 16:40 117/46 98 11/03/18 16:30 125/47 94 L 11/03/18 16:20 125/47 95 11/03/18 16:10 133/85 97 11/03/18 16:00 131/67 95 11/03/18 15:50 131/67 97 11/03/18 15:40 126/83 11/03/18 15:30 79 21 137/91 11/03/18 15:22 85 17 11/03/18 15:00 97.8 F 81 18 132/88 97 Intake and Output 11/03/18 11/03/18 11/03/18 06:59 14:59 22:59 Other: Voiding Method Toilet # Voids 1 Weight 150.593 kg Constitutional: No acute distress, conversant, pleasant Eyes: Anicteric sclerae, moist conjunctiva, no lid-lag, PERRLA ENMT: NC/AT,Oropharynx clear, no erythema, exudates Neck:Supple, FROM, no masses, or JVD, No carotid bruits; No thyromegaly Lungs: Clear to auscultation, Clear to percussion, Normal respiratory effort, no accessory muscle use Cardiovascular: Heart regular in rate and rhythm, No murmurs, gallops, or rubs no peripheral edema Abdominal: Soft Nontender, nom distended, no guarding, no rebound or rigidity, Normoactive bowel sounds No hepatomegaly, No splenomegaly, No palpable mass No abdominal wall hernia noted Skin: Normal temperature, tone, texture, turgor, No induration No subcutaneous nodules, No rash, lesions, No ulcers Extremities:No digital cyanosis No clubbing, Pedal pulses intact and symmetrical Radial pulses intact and symmetrical Normal gait and station, No calf tenderness Psychiatric: Alert and oriented to person, place and time, Appropriate affect Intact judgement Neuro: Muscles Strength 5/5 in all 4 extremities, Sensation to light touch grossly present throughout, Cranial nerves II-XII grossly intact. No focal sensory deficits Results CBC & Chem 7: 11/03/18 15:21 11/03/18 15:21 Labs: Abnormal Lab Results - Last 24 Hours (Table) 11/03/18 Range/Units 15:21 Glucose 287 H (74-99) mg/dL Thrombosis Risk Factor Assmnt - Choose All That Apply Any of the Below Risk Factors Present?: Yes Each Factor Represents 1 point: Age 41-60 years, Obesity (BMI >25) Thrombosis Risk Factor Assessment Total Risk Factor Score: 2 Thrombosis Risk Factor Assessment Level: Low Risk Assessment and Plan (1) Chest pain Current Visit: Yes Status: Acute Code(s): R07.9 - CHEST PAIN, UNSPECIFIED SNOMED Code(s): 55264587 (2) Type 2 diabetes mellitus with hyperglycemia Current Visit: Yes Status: Acute Code(s): E11.65 - TYPE 2 DIABETES MELLITUS WITH HYPERGLYCEMIA SNOMED Code(s): 736878621386840 (3) Essential hypertension Current Visit: Yes Status: Acute Code(s): I10 - ESSENTIAL (PRIMARY) HYPERTENSION SNOMED Code(s): 75729339 (4) Hyperlipidemia Current Visit: No Status: Acute Code(s): E78.5 - HYPERLIPIDEMIA, UNSPECIFIED SNOMED Code(s): 15278975 (5) Paresthesias Current Visit: No Status: Acute Code(s): R20.2 - PARESTHESIA OF SKIN SNOMED Code(s): 94142542 Plan: The patient is placed on observation anticipate a less than 2 midnight stay after presenting with chest pain concerning for angina, she is continued on routine chest pain orders with aspirin, nitroglycerin as needed. Workup thus far has been negative, we'll continue to cycle her troponins, will order echocardiogram and Lexiscan stress test and consult cardiology for further recommendations. We'll also check an A1c resume her glipizide and initiated correctional scale coverage with [facility]. We'll continue to follow her clinical course CODE STATUS Full code Discharge 1-2 days Prophylaxis SCDs and heparin
[2018-11-03 20:15] LABS: Glucose,Whole Blood 282 mg/dL (75-99)
[2018-11-03] MEDS: METOPROLOL TARTRATE 25 MG TAB PO SCH (20:16)
[2018-11-03] MEDS: glipiZIDE 10 MG TAB PO SCH (20:16)
[2018-11-03] MEDS: INSULIN ASPART (NovoLOG) 100 UNIT/ML VIAL SQ SCH ×2 (20:17→21:42)
[2018-11-03] MEDS: HEPARIN SODIUM,PORCINE 5,000 UNIT/ML 1 ML VIAL SQ SCH (20:17)
[2018-11-04 03:43] LABS: Cholesterol 191 mg/dL (<200); HDL Cholesterol 31 mg/dL (40-60); LDL Cholesterol,Calculated 110 mg/dL (0-99); Triglycerides 248 mg/dL (<150)
[2018-11-04 04:02] LABS: Hemoglobin A1C 9.3 % (4.0-6.0)
[2018-11-04 06:46] LABS: Glucose,Whole Blood 138 mg/dL (75-99)
[2018-11-04] MEDS: INSULIN ASPART (NovoLOG) 100 UNIT/ML VIAL SQ SCH ×4 (07:58→22:00)
[2018-11-04] MEDS ORDERED: REGADENOSON 0.4 MG/5 ML SYRINGE IV ONE (08:00)
[2018-11-04] MEDS ORDERED: CAFFEINE CITRATE 60 MG/3 ML VIAL IV PRN (09:00)
[2018-11-04] MEDS ORDERED: ASPIRIN 325 MG TAB PO SCH (09:00)
[2018-11-04] MEDS: glipiZIDE 10 MG TAB PO SCH ×2 (11:04→17:48)
[2018-11-04] MEDS: METOPROLOL TARTRATE 25 MG TAB PO SCH ×2 (11:06→22:00)
[2018-11-04] MEDS: LISINOPRIL 10 MG TAB PO SCH (11:06)
[2018-11-04] MEDS: ATORVASTATIN 80 MG TAB PO SCH (11:06)
[2018-11-04] MEDS: HEPARIN SODIUM,PORCINE 5,000 UNIT/ML 1 ML VIAL SQ SCH ×3 (11:07→23:05)
[2018-11-04 11:15] LABS: Glucose,Whole Blood 142 mg/dL (75-99)
--- NOTE | 2018-11-04 11:48 | NM ---
EXAMINATION TYPE: NM stress lexiscan cardiolite DATE OF EXAM: 11/04/2018 COMPARISON: NONE HISTORY: Chest pain TECHNIQUE: After the intravenous administration of 10.2 mCi Tc 99m Sestamibi - Cardiolite resting SP ECT images acquired 45 minutes post injection. The patient received 0.4mg Lexiscan, 25.8 mCi Tc 99m Sestamibi - Stress images obtained [address] injection FINDINGS: Mild decreased uptake noted along the anterior wall left ventricle on stress images as compared to rest images extending toward the cardiac apex Gated analysis shows normal wall motion with an estimat ed left ventricular ejection fraction of 51 %. IMPRESSION: Findings suggest mild pharmacologically induced left ventricular myocardial ischemia as described
[2018-11-04] MEDS ORDERED: ALPRAZolam 0.25 MG TAB PO PRN (14:09)
[2018-11-04] MEDS ORDERED: SODIUM CHLORIDE 0.9% 1,000 ML in EMPTY BAG 1 BAG IV ONE (14:09)
[2018-11-04] MEDS ORDERED: ALPRAZolam 0.5 MG TAB PO PRN (14:09)
--- NOTE | 2018-11-04 14:16 | P.CRDCN ---
History of Present Illness History of present illness: Physical pleasant 42-year-old -[place] female past medical history significant for hypertension, dyslipidemia, diabetes mellitus, obstructive sleep apnea, asthma and morbid obesity. She denies history of coronary artery disease and is never seen a superintendent overhead distribution for any reason. We have been asked to see her in consultation for symptoms of chest discomfort. She presented to the hospital yesterday with symptoms of left arm numbness and tingling and chest pain. She states she woke up yesterday from a nap in her chair in her left arm was numb and tingly. She then started feeling a heavy pressure sensation in the left precordial region. This persisted for most of the day with no specific aggravating or alleviating factor. She denies associated shortness of breath, dizziness, palpitations, nausea, vomiting or diaphoresis. She was seen by internal medicine hospitalist group and a Lexiscan stress test was ordered. A Lexiscan stress test reveals mild pharmacologically induced left ventricular cardiac ischemia. The patient is seen and examined resting comfortably in bed in no acute distress. She denies any ongoing symptoms of chest discomfort. The patient states she is somewhat noncompliant with her medications. EKG on arrival reveals sinus mechanism with no acute ST or T wave abnormalities noted. Chest x-ray is negative for an acute cardiopulmonary process. CTA chest negative for acute process. Laboratory data reviewed, WBC 4.6, hemoglobin 13.9, platelets 267, d-dimer 0.57 , sodium 140, potassium 4.1, creatinine 0.54, hemoglobin A1c 9.3, cardiac enzymes negative 3, LDL 110, HDL 31. Current cardiac medications include atorvastatin 80 mg daily, lisinopril 10 mg daily. At the time of my exam: CONSTITUTIONAL: Denies fever. Denies chills. EYES: Denies blurred vision. Denies vision changes. Denies eye pain. EARS, NOSE, MOUTH & THROAT: Denies headache. Denies sore throat. Denies ear pain. CARDIOVASCULAR: Denies chest pain. Denies shortness of breath. Denies orthopnea. Denies PND. Denies palpitations. RESPIRATORY: Denies cough. GASTROINTESTINAL: Denies abdominal pain. Denies diarrhea. Denies constipation. Denies nausea. Denies vomiting. MUSCULOSKELETAL: Denies myalgias. INTEGUMENTARY: Denies pruitis. Denies rash. NEUROLOGIC: Denies numbness. Denies tingling. Denies weakness. PSYCHIATRIC: Denies anxiety. Denies depression. ENDOCRINE: Denies fatigue. Denies weight change. Denies polydipsia. Denies polyurina. GENITOURINARY: Denies burning, hematuria or urgency with micturation. HEMATOLOGIC: Denies history of anemia. Denies bleeding. Blood pressure 150/94 heart rate 76 afebrile maintaining oxygen saturation on room air GENERAL: This is a 42-year-old -[place] female in no apparent distress at the time of my examination. Morbidly obese HEENT: Head is atraumatic, normocephalic. Pupils are equal, round. Sclerae anicteric. Conjunctivae are clear. Mucous membranes of the mouth are moist. Neck is supple. There is no jugular venous distention. No carotid bruit is heard. LUNGS: Clear to auscultation no wheezes, rales or rhonchi. No chest wall tenderness is noted on palpation or with deep breathing. HEART: Regular rate and rhythm without murmurs, rubs or gallops. S1 and S2 heard. ABDOMEN: Soft, nontender. Bowel sounds are heard. No organomegaly noted. EXTREMITIES: No evidence of peripheral edema and no calf tenderness noted. VASCULAR: Radial and dorsalis pedis pulses palpated, no evidence of clubbing. NEUROLOGIC: Patient is awake, alert and oriented x3. ASSESSMENT Chest pain, atypical for angina. An acute coronary event has been ruled out. Lexiscan stress test reveals evidence of from a quadriplegic left ventricular reversible ischemia. Hypertension Dyslipidemia Diabetes mellitus Morbid obesity, BMI 45 PLAN We have been consulted to see the patient secondary to abnormal stress test. We recommend she undergo cardiac catheterization to further assess for coronary artery disease. I have discussed the risks, benefits and alternative therapies for the above-mentioned procedure and for both sedation/analgesia as well as necessary blood product administration, if indicated, as they pertain to this patient. The patient has indicated understanding and acceptance of the risks and procedures discussed. She is agreeable to move forward with the above stated procedure. Orders have been placed. Further recommendations to follow based upon clinical course. Nurse Practitioner note has been reviewed, I agree with a documented findings and plan of care. Patient was seen and examined. 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 She is independent. Smoking Status: Former smoker Past Alcohol Use History: Rare Additional Past Alcohol Use History / Comment(s): Started smoking age 13, quit 2006, smoked 1 ppd Past Drug Use History: None Reported - Past Family History Mother Family Medical History: Asthma, Diabetes Mellitus, Hypertension Additional Family Medical History / Comment(s): Long Qt syndrome Father Family Medical History: Pneumonia Additional Family Medical History / Comment(s): "stomach problems," Father of pneumonia at the age of 58yrs. Medications and Allergies Home Medications Medication Instructions Recorded Confirmed Type Albuterol Nebulized [Ventolin 2.5 mg INHALATION Q6H PRN 11/03/18 11/03/18 History Nebulized] Atorvastatin [Lipitor] 80 mg PO DAILY 11/03/18 11/03/18 History Lisinopril [Zestril] 10 mg PO DAILY 11/03/18 11/03/18 History glipiZIDE [Glucotrol] 10 mg PO BID 11/03/18 11/03/18 History metFORMIN HCL 1,000 mg PO BID 11/03/18 11/03/18 History Allergies Allergy/AdvReac Type Severity Reaction Status Date / Time Penicillins Allergy Unknown Verified 11/03/18 16:27 Childhood Physical Exam Vitals: Vital Signs Temp Pulse Pulse Resp BP BP Pulse Ox 11/04/18 12:00 98 F 76 18 150/94 96 11/04/18 07:45 97.9 F 82 18 116/75 95 11/04/18 03:21 16 11/04/18 03:10 97.8 F 79 16 98/66 96 11/03/18 23:48 98.2 F 86 16 129/76 97 11/03/18 23:10 16 11/03/18 20:00 16 11/03/18 19:38 97.6 F 79 16 137/87 97 11/03/18 18:43 18 11/03/18 18:36 97.8 F 76 18 160/105 95 11/03/18 17:40 82 16 152/89 96 11/03/18 17:35 97.7 F 79 14 152/89 97 11/03/18 17:30 81 6 L 119/80 11/03/18 17:20 80 16 119/80 93 L 11/03/18 17:10 80 21 131/91 93 L 11/03/18 17:00 77 11 L 11/03/18 16:40 117/46 98 11/03/18 16:30 125/47 94 L 11/03/18 16:20 125/47 95 11/03/18 16:10 133/85 97 11/03/18 16:00 131/67 95 11/03/18 15:50 131/67 97 11/03/18 15:40 126/83 11/03/18 15:30 79 21 137/91 11/03/18 15:22 85 17 11/03/18 15:00 97.8 F 81 18 132/88 97 Intake and Output 11/03/18 11/04/18 11/04/18 22:59 06:59 14:59 Intake Total 222 Balance 222 Intake: Oral 222 Other: Voiding Method Toilet Toilet # Voids 1 2 Weight 150.593 kg 150.593 kg Results 11/03/18 15:21 11/03/18 15:21 Cardiac Enzymes 11/03/18 11/03/18 11/03/18 Range/Units 15:21 15:21 21:23 AST 18 (14-36) U/L Troponin I <0.012 <0.012 (0.000-0.034) ng/mL 11/04/18 Range/Units 03:06 AST (14-36) U/L Troponin I <0.012 (0.000-0.034) ng/mL Coagulation 11/03/18 Range/Units 15:21 PT 9.7 (9.0-12.0) sec APTT 25.6 (22.0-30.0) sec Lipids 11/04/18 Range/Units 03:06 Triglycerides 248 H (<150) mg/dL Cholesterol 191 (<200) mg/dL HDL Cholesterol 31 L (40-60) mg/dL CBC 11/03/18 Range/Units 15:21 WBC 4.6 (3.8-10.6) k/uL RBC 4.50 (3.80-5.40) m/uL Hgb 13.9 (11.4-16.0) gm/dL Hct 43.1 (34.0-46.0) % Plt Count 267 (150-450) k/uL Comprehensive Metabolic Panel 11/03/18 Range/Units 15:21 Sodium 140 (137-145) mmol/L Potassium 4.1 (3.5-5.1) mmol/L Chloride 105 (98-107) mmol/L Carbon Dioxide 27 (22-30) mmol/L BUN 11 (7-17) mg/dL Creatinine 0.54 (0.52-1.04) mg/dL Glucose 287 H (74-99) mg/dL Calcium 9.3 (8.4-10.2) mg/dL AST 18 (14-36) U/L ALT 27 (9-52) U/L Alkaline Phosphatase 124 (38-126) U/L Total Protein 7.2 (6.3-8.2) g/dL Albumin 3.8 (3.5-5.0) g/dL Current Medications Generic Name Dose Route Start Last Admin Trade Name Freq PRN Reason Stop Dose Admin Alprazolam 0.25 mg 11/04/18 14:09 Xanax PO Q6HR PRN Mild Anxiety Alprazolam 0.5 mg 11/04/18 14:09 Xanax PO Q6HR PRN Moderate Anxiety Aspirin 325 mg 11/04/18 09:00 11/04/18 11:06 Aspirin PO 325 mg DAILY DIXON Administration Atorvastatin Calcium 80 mg 11/04/18 09:00 11/04/18 11:06 Lipitor PO 80 mg DAILY DIXON Administration Glipizide 10 mg 11/03/18 19:00 11/04/18 11:04 Glucotrol PO 10 mg AC-BID DIXON Administration Heparin Sodium (Porcine) 5,000 unit 11/04/18 00:00 11/04/18 11:07 Heparin SQ 5,000 unit Q8HR DIXON Administration Sodium Chloride 1,000 ml/ IV 1,000 mls @ 150.59 mls/hr 11/04/18 14:09 Solution IV 11/04/18 20:47 .Q6H39M ONE 1 ML/KG/HR Insulin Aspart 0 unit 11/03/18 18:36 11/04/18 12:22 Novolog SQ 2 unit ACHS DIXON Administration Protocol Lisinopril 10 mg 11/04/18 09:00 11/04/18 11:06 Zestril PO 10 mg DAILY DIXON Administration Metoprolol Tartrate 25 mg 11/03/18 21:00 11/04/18 11:06 Lopressor PO 25 mg BID DIXON Administration Nitroglycerin 0.4 mg 11/03/18 17:28 11/03/18 17:38 Nitrostat SUBLINGUAL 0.4 mg Q5M PRN Administration Chest Pain Intake and Output 11/03/18 11/04/18 11/04/18 22:59 06:59 14:59 Intake Total 222 Balance 222 Intake: Oral 222 Other: Voiding Method Toilet Toilet # Voids 1 2 Weight 150.593 kg 150.593 kg Patient Weight 11/05/18 06:59 Weight 150.593 kg 11/03/18 15:21 11/03/18 15:21
--- NOTE | 2018-11-04 15:46 | P.PN ---
Subjective Progress Note Date: 11/04/18 Principal diagnosis: chest pain Patient is a 42 yo Female with a past medical history of type 2 diabetes, hypertension, dyslipidemia and TIA who presented to the ER with complaints of chest pain was left-sided numbness and tingling. In the ER she underwent an extensive evaluation. Her initial vital signs were within normal limits. Initial laboratory analysis showed hyperglycemia. Her troponin was negative and EKG did not show any signs of acute ischemia. She was admitted as chest pain observation. Her troponins remained negative. Cardiology was consulted and she underwent a Lexiscan stress test on the morning of 11/04. Her stress test came back with mild reversible ischemia and the plan is for cardiac cath. Her LDL and total cholesterol are above goal. Patient has not been compliant with her medications and we recommend continuing her Lipitor 80 mg. Patient seen and examined at bedside. She denies any chest pain, shortness of breath, nausea, or vomiting. There are a lot of discussion about her A1c being 9.3 and the need for better blood sugar control. She has not been taking her metformin and glipizide consistently. She does not want to start insulin at this point in time. She agrees to be more compliant when she goes home with medication use. Objective - Vital Signs Vital signs: Vital Signs Temp 98 F 11/04/18 12:00 Pulse 76 11/04/18 12:00 Resp 18 11/04/18 12:00 BP 150/94 11/04/18 12:00 Pulse Ox 96 11/04/18 12:00 Intake & Output 11/03/18 11/04/18 11/04/18 18:59 06:59 18:59 Intake Total 222 Balance 222 Weight 150.593 kg 150.593 kg Intake: Oral 222 Other: Voiding Method Toilet Toilet # Voids 1 2 - Exam General: non toxic, no distress, appears at stated age, obese Derm: warm, dry Head: atraumatic, normocephalic, symmetric Eyes: EOMI, no lid lag, anicteric sclera Mouth: no lip lesion, mucus membranes moist Cardiovascular: S1S2 reg, no murmur, positive posterior tibial pulse bilateral, Lungs: CTA bilateral, no rhonchi, no rales , no accessory muscle use Abdominal: soft, nontender to palpation, no guarding, no appreciable organomegaly Ext: no gross muscle atrophy, no edema, no contractures Neuro: CN II-XI grossly intact, no focal neuro deficits Psych: Alert, oriented, appropriate affect - Labs CBC & Chem 7: 11/03/18 15:21 11/03/18 15:21 Labs: Abnormal Lab Results - Last 24 Hours (Table) 11/03/18 11/03/18 11/03/18 Range/Units 15:21 20:10 21:23 Glucose 287 H (74-99) mg/dL POC Glucose (mg/dL) 282 H (75-99) mg/dL Hemoglobin A1c 9.3 H (4.0-6.0) % Triglycerides (<150) mg/dL LDL Cholesterol, Calc (0-99) mg/dL HDL Cholesterol (40-60) mg/dL 11/04/18 11/04/18 11/04/18 Range/Units 03:06 06:45 11:14 Glucose (74-99) mg/dL POC Glucose (mg/dL) 138 H 142 H (75-99) mg/dL Hemoglobin A1c (4.0-6.0) % Triglycerides 248 H (<150) mg/dL LDL Cholesterol, Calc 110 H (0-99) mg/dL HDL Cholesterol 31 L (40-60) mg/dL Assessment and Plan Assessment: Chest pain with abnormal stress test -Plan is for cardiac cath -Cardiology recommendations appreciated -Continue with metoprolol, aspirin, and Lipitor Diabetes mellitus type 2 with hyperglycemia. A1c 9.3 -Continue a sliding scale insulin and Glucotrol -Resume metformin 48 hours post-cath -Follow blood sugars Dyslipidemia -Lipitor Hypertension, controlled -Continue with lisinopril and metoprolol Morbid obesity -Structured outpatient weight loss Obstructive Sleep apnea -Does not use CPAP DVT prophylaxis: heparin Discussed with: patient, nursing Anticipated discharge: [address]: home A total of [25] minutes was spent on the care of this complex patient more than 50% of the time was spent in counseling and care coordination.
[2018-11-04] MEDS ORDERED: SODIUM CHLORIDE 0.9% 1,000 ML IV ONE (16:32)
[2018-11-04] MEDS ORDERED: IV FLUID CONTINUATION 800 ML IV ONE (16:32)
[2018-11-04] MEDS ORDERED: HEPARIN SODIUM 1,000 UN/ML (10ML VL) ONE (16:34)
[2018-11-04] MEDS ORDERED: LIDOCAINE 1% INJ 10MG/ML (20 ML MDV) ONE (16:34)
[2018-11-04] MEDS ORDERED: VERAPAMIL 2.5 MG/ML 2 ML AMP ONE (16:34)
[2018-11-04] MEDS ORDERED: MIDAZOLAM 2 MG/2 ML VIAL IVP ONE (16:49)
[2018-11-04] MEDS ORDERED: LIDOCAINE 1% INJ 10MG/ML (20 ML MDV) SQ ONE (16:54)
[2018-11-04] MEDS: VERAPAMIL SYRINGE (5 MG/10 ML) INTRAARTER ONE ×2 (16:55→17:04)
[2018-11-04] MEDS ORDERED: IOPAMIDOL-370 150ML BTL INJ ONE (17:06)
[2018-11-04] MEDS ORDERED: RX INFO: IV CONTRAST WAS GIVEN 1 EACH MISC MISCELLANE PRN (17:09)
[2018-11-04] MEDS ORDERED: SODIUM CHLORIDE 0.9% 1,000 ML IV SCH (17:15)
[2018-11-04 17:34] LABS: Glucose,Whole Blood 145 mg/dL (75-99)
--- NOTE | 2018-11-04 17:49 | ECHOF ---
Referral Reason:chest pain MEASUREMENTS -------- HEIGHT: 180.3 cm WEIGHT: 150.6 kg BP: RVIDd: 2.6 cm (< 3.3) IVSd: 1.4 cm (0.6 - 1.1) LVIDd: 4.5 cm (3.9 - 5.3) LVPWd: 1.6 cm (0.6 - 1.1) IVSs: 1.8 cm LVIDs: 3.1 cm LVPWs: 2.0 cm LAESV Index (A-L): 20.04 ml/m Ao Diam: 2.7 cm (2.0 - 3.7) AV Cusp: 1.9 cm (1.5 - 2.6) LA Diam: 3.5 cm (2.7 - 3.8) MV EXCURSION: 16.659 mm (> 18.000) MV EF SLOPE: 84 mm/s (70 - 150) EPSS: 0.9 cm MV E Billy: 0.82 m/s MV DecT: 176 ms MV A Billy: 0.64 m/s MV E/A Ratio: 1.29 RAP: 5.00 mmHg RVSP: 19.13 mmHg FINDINGS -------- Sinus rhythm. This was a technically good study. The left ventricular size is normal. There is moderate concentric left ventricular hypertrophy. O verall left ventricular systolic function is low-normal with, an EF between 50 - 55 %. The right ventricle is normal in size. Normal LA size by volume 22+/-6 ml/m2. The right atrial size is normal. The aortic valve is trileaflet and appears structurally normal. The mitral valve is normal. There is trace mitral regurgitation. The tricuspid valve appears structurally normal. Trace tricuspid regurgitation present. The right ventricular systolic pressure, as measured by Doppler, is 19.13mmHg. There is no pulmonic regurgitation present. The aortic root size is normal. IVC Not well visulized. There is a trivial pericardial effusion present. CONCLUSIONS -------- 1. Sinus rhythm. 2. This was a technically good study. 3. The left ventricular size is normal. 4. There is moderate concentric left ventricular hypertrophy. 5. Overall left ventricular systolic function is low-normal with, an EF between 50 - 55 %. 6. The right ventricle is normal in size. 7. Normal LA size by volume 22+/-6 ml/m2. 8. The right atrial size is normal. 9. The aortic valve is trileaflet and appears structurally normal. 10. The mitral valve is normal. 11. There is trace mitral regurgitation. 12. The tricuspid valve appears structurally normal. 13. Trace tricuspid regurgitation present. 14. The right ventricular systolic pressure, as measured by Doppler, is 19.13mmHg. 15. There is no pulmonic regurgitation present. 16. The aortic root size is normal. 17. IVC Not well visulized. 18. There is a trivial pericardial effusion present. BROKE WORKER: Salome Chang RDCS
--- NOTE | 2018-11-04 18:05 | CC ---
CARDIAC CATHETERIZATION REPORT DATE OF SERVICE: 11/04/2018 PERFORMING PHYSICIAN: Zhao Torre MD, corking machine operator. PROCEDURES PERFORMED: 1. Selective right and left coronary angiogram. 2. Left heart catheterization. INDICATION: This is a pleasant 42-year-old female patient with a past medical history significant for diabetes, hypertension and dyslipidemia who presented to the hospital with chest discomfort and ruled out for acute coronary event. She underwent a myocardial perfusion imaging stress test and that revealed reversible defect. Because of that, heart catheterization was advised. APPROACH: Right radial artery. COMPLICATIONS: None. LEVEL OF SEDATION: Moderate, with sedation length of 13 minutes. PROCEDURE DESCRIPTION: After obtaining informed consent, the patient was brought to the cardiac pit laborer. The right radial artery was cannulated using micropuncture technique and the micropuncture wire passed easily. Then I placed a 6-Danish sheath in the right radial artery. I did give the patient 2 mg of Verapamil IA and 10,000 units of heparin IV. Selective right and left coronary angiogram was performed using JR4 and JL3.5 catheters. Left heart catheterization was performed using the JR4 catheter which flipped into the LV, then I did pull back across the aortic valve. SELECTIVE CORONARY ANGIOGRAM: 1. The right coronary artery is a large-caliber vessel and it is a dominant vessel. It appeared to be angiographically normal. Distally it bifurcates into PDA and PLV branches. 2. The left main is angiographically normal. It bifurcates into left circumflex and left anterior descending artery. 3. Left circumflex is a large-caliber vessel. It is a nondominant vessel. The left circumflex itself is angiographically normal. 4. The LAD is angiographically normal. In the mid portion it gives rise to a medium- sized diagonal branch which appeared to be angiographically normal. The LAD does reach the apex. HEMODYNAMICS: The left ventricular end-diastolic pressure was 12 mmHg and no significant gradient was seen across the aortic valve. CONCLUSION: 1. Normal coronary angiogram. 2. Normal left ventricular end-diastolic pressure. POST-PROCEDURE MANAGEMENT: Medical treatment. MMODL / IJN: [id number] /
--- NOTE | 2018-11-04 18:10 | LTR ---
November 04, 2018 To: Dr. Raegan Stratton Re: Connie Simmons (77) Dear Dr. Stratton, Ms. Connie Simmons presented to [facility] with chest discomfort and underwent myocardial perfusion imaging stress test that revealed ischemia. She underwent a heart catheterization that revealed normal coronaries. I want to thank you for allowing us to participate in her care and please do not hesitate to call if you have any question or concerns. Sincerely, MD NATALIA Villalba / MIRIANN: [id number] /
--- NOTE | 2018-11-04 20:17 | EST ---
EXERCISE STRESS DATE OF SERVICE: 11/04/2018 AGE: 42 SEX: Female. HT: 72" WT: 332 pounds PROTOCOL: Lexiscan Cardiolite STAGE: DURATION OF EXERCISE: HEART RATE REST: 80 BLOOD PRESSURE REST: 132/93 MAXIMUM HEART RATE ACHIEVED: 100 MAXIMUM BLOOD PRESSURE: 143/91 85% MPHR: 100% MPHR: METS: INDICATIONS: Chest pain. CLINICAL INFORMATION: STRESS DATA: Pre-testing physical examination showed a heart rate of 80, pressure 132/93 mmHg. Baseline EKG showed sinus mechanism. Lexiscan 0.4 mg was given over 15 seconds per protocol. Max heart rate was 100 beats per minute and maximum pressure was 143/91 mmHg. Clinically the patient did not have any symptoms of chest pain or discomfort and the EKG did not show any significant ST or T-wave abnormalities concerning for ischemia. CONCLUSION: 1. Nondiagnostic electrocardiogram stress testing response to Lexiscan. 2. Please follow up on the Cardiolite portion on separate report. MMODL / IJN: [id number] /
[2018-11-04 21:20] LABS: Glucose,Whole Blood 199 mg/dL (75-99)
[2018-11-05 06:51] LABS: Glucose,Whole Blood 209 mg/dL (75-99)
--- NOTE | 2018-11-05 07:57 | P.PN ---
Progress Note - Text Progress Note Date: 11/05/18 This is this is a pleasant 42 year-old female patient who was admitted to the hospital with a chest discomfort and ruled out for acute coronary event. She underwent myocardial perfusion imaging stress test and that revealed reversible defect. Subsequently she underwent a heart catheterization and that came in to be unremarkable for coronary artery disease. On follow-up with her today, she is chest pain-free. From a perivascular standpoint of view, she can be discharged home and she is to be followed as an outpatient to assess the right radial access.
[2018-11-05 07:58] VITALS: BP 108/70; PULSE 80; RESP 18; TEMP 98.4
[2018-11-05] MEDS: HEPARIN SODIUM,PORCINE 5,000 UNIT/ML 1 ML VIAL SQ SCH (08:27)
[2018-11-05] MEDS: ATORVASTATIN 80 MG TAB PO SCH (08:27)
[2018-11-05] MEDS: METOPROLOL TARTRATE 25 MG TAB PO SCH (08:27)
[2018-11-05] MEDS: LISINOPRIL 10 MG TAB PO SCH (08:27)
[2018-11-05] MEDS: INSULIN ASPART (NovoLOG) 100 UNIT/ML VIAL SQ SCH (08:27)
[2018-11-05] MEDS: glipiZIDE 10 MG TAB PO SCH (08:28)
[2018-11-05] MEDS ORDERED: ASPIRIN 81 MG PO SCH (09:00)
--- NOTE | 2018-11-05 09:50 | P.DS ---
Providers Date of admission: 11/04/18 13:44 Expected date of discharge: 11/05/18 Attending physician: Juvenal Cedeño MD Consults: 11/04/18 09:43 Consult Physician Routine Consulting Provider: Christian Marquez Consult Reason/Comments: chest pain Do you want consulting provider notified?: Yes Primary care physician: Raegan Stratton Hospital Course: Discharge Diagnosis: Chest pain- negative cath HTN urgency DM 2 with hyperglycemia Hyperlipidemia Morbid Obeisty BMI 45 Hospital Course: Patient is a 42 yo Female with a past medical history of type 2 diabetes, hypertension, dyslipidemia and TIA who presented to the ER with complaints of chest pain was left-sided numbness and tingling. In the ER she underwent an extensive evaluation. Her initial vital signs were within normal limits. Initial laboratory analysis showed hyperglycemia. Her troponin was negative and EKG did not show any signs of acute ischemia. She was admitted as chest pain observation. Her troponins remained negative. Cardiology was consulted and she underwent a Lexiscan stress test on the morning of 11/04. Her stress test came back with mild reversible ischemia and she underwent cardiac cath which showed clean coronaries Her LDL and total cholesterol are above goal. Patient has not been compliant with her medications and we recommend continuing her Lipitor 80 mg. Her A1C was 9.3 but she has not been complient with her metformin and glipizide and there will be resumed. She was started on metoprolol ue to elevated BP on arrival to the ED. She was given a prescription for glucometer and testing supplies. She was determined stable for discharge. She will follow with Dr Stratton in 2-[address] Torre in 1 week for recheck of wrist. Patient seen and examined at bedside. No additional chest pain, feeling well. No shorntess of breath. Wants to go home. Vital signs reviewed and stable. General: non toxic, no distress, appears at stated age, obese Derm: warm, dry Head: atraumatic, normocephalic, symmetric Eyes: EOMI, no lid lag, anicteric sclera Mouth: no lip lesion, mucus membranes moist Cardiovascular: S1S2 reg, no murmur, positive posterior tibial pulse bilateral, Lungs: CTA bilateral, no rhonchi, no rales , no accessory muscle use Abdominal: soft, nontender to palpation, no guarding, no appreciable organomegaly Ext: no gross muscle atrophy, no edema, no contractures Neuro: CN II-XI grossly intact, no focal neuro deficits Psych: Alert, oriented, appropriate affect A total of 32 minutes of time were spent preparing this complex discharge summary . Pertinent Studies: Lexiscan- mild reversible ischemia Procedures: Cardiac cath- normal coronaries Patient Condition at Discharge: Good Plan - Discharge Summary Discharge Rx Participant: Yes New Discharge Prescriptions: New Aspirin 81 mg PO DAILY chew Metoprolol Tartrate [Lopressor] 12.5 mg PO BID #60 dose Continue metFORMIN HCL 1,000 mg PO BID glipiZIDE [Glucotrol] 10 mg PO BID Lisinopril [Zestril] 10 mg PO DAILY Albuterol Nebulized [Ventolin Nebulized] 2.5 mg INHALATION Q6H PRN PRN Reason: Shortness Of Breath Changed Atorvastatin [Lipitor] 80 mg PO HS #0 Discharge Medication List Albuterol Nebulized [Ventolin Nebulized] 2.5 mg INHALATION Q6H PRN 11/03/18 [History] Lisinopril [Zestril] 10 mg PO DAILY 11/03/18 [History] glipiZIDE [Glucotrol] 10 mg PO BID 11/03/18 [History] metFORMIN HCL 1,000 mg PO BID 11/03/18 [History] Aspirin 81 mg PO DAILY chew 11/05/18 [Rx] Atorvastatin [Lipitor] 80 mg PO HS #0 11/05/18 [Rx] Metoprolol Tartrate [Lopressor] 12.5 mg PO BID #60 dose 11/05/18 [Rx] Follow up Appointment(s)/Referral(s): Zhao Torre MD [STAFF PHYSICIAN] - 1 Week Raegan Stratton MD [Primary Care Provider] - 1-2 days Activity/Diet/Wound Care/Special Instructions: heart healthy carb consistent diet activity as tolerated Check blood sugar once daily in the morning prior to eating Resume Metformin on 11/07/18
== END 2018-11-05 10:45 | disposition home or self-care (01) | DRG 287 ==
LOC: EC 14:56 → 1SOBS 17:29 → OBSVTOIN 11-04 13:44
PROVIDERS: ADMIT Family Medicine; ATTEND Family Medicine
PROC: B2111ZZ Fluoroscopy of Multiple Coronary Arteries using Low Osmolar Contrast (ICD-10-PCS; 2018-11-04)
PROC: B2151ZZ Fluoroscopy of Left Heart using Low Osmolar Contrast (ICD-10-PCS; 2018-11-04)
PROC: 4A023N7 Measurement of Cardiac Sampling and Pressure, Left Heart, Percutaneous Approach (ICD-10-PCS; principal; 2018-11-04 11:00)
DX: R07.89 Other chest pain (principal); Z68.42 Body mass index [BMI] 45.0-49.9, adult; E11.65 Type 2 diabetes mellitus with hyperglycemia; E66.01 Morbid (severe) obesity due to excess calories; J45.909 Unspecified asthma, uncomplicated; G47.33 Obstructive sleep apnea (adult) (pediatric); R20.2 Paresthesia of skin; R79.1 Abnormal coagulation profile; M19.90 Unspecified osteoarthritis, unspecified site; L40.9 Psoriasis, unspecified; I10 Essential (primary) hypertension; E78.5 Hyperlipidemia, unspecified; I16.0 Hypertensive urgency; R94.39 Abnormal result of other cardiovascular function study; Z79.899 Other long term (current) drug therapy; Z79.84 Long term (current) use of oral hypoglycemic drugs; Z86.73 Personal history of transient ischemic attack (TIA), and cerebral infarction without residual deficits; Z91.14 Patient's other noncompliance with medication regimen; Z87.891 Personal history of nicotine dependence; Z90.710 Acquired absence of both cervix and uterus; Z88.0 Allergy status to penicillin; Z83.3 Family history of diabetes mellitus; Z82.5 Family history of asthma and other chronic lower respiratory diseases; Z82.49 Family history of ischemic heart disease and other diseases of the circulatory system
CPT/HCPCS: 36415; 71046; 71275; 78452; 80053; 80061; 83036; 83690; 83735; 84484; 85025; 85379; 85610; 85730; 93005; 93017; 93306; 93458; 99285

== ENCOUNTER 2018-11-05 19:02 | Emergency (ER) | payer OTHER ==
[2018-11-05 19:10] VITALS: RESP 18; TEMP 98.2
[2018-11-05] MEDS ORDERED: ASPIRIN 81 MG PO STA (19:30)
--- NOTE | 2018-11-05 19:37 | ED ---
Chest Pain HPI - General Chief Complaint: Chest Pain Stated Complaint: HEART FLUTTERING Time Seen by Provider: 11/05/18 19:23 Source: patient Mode of arrival: ambulatory Limitations: no limitations - History of Present Illness Initial Comments: Patient presents with a CC of heart palpitations. she states those symptoms started at 5pm today. she had a cardiac cath yesterday with Dr. Torre, and she states that the cath was clear. she cannot identify any inciting incident, no aggravating or alleviating factors. timing is intermittent. she is currently assymptomatic. - Related Data Home Medications Medication Instructions Recorded Confirmed Albuterol Nebulized [Ventolin 2.5 mg INHALATION RT-QID PRN 11/03/18 11/05/18 Nebulized] Lisinopril [Zestril] 10 mg PO DAILY 11/03/18 11/05/18 glipiZIDE [Glucotrol] 10 mg PO BID 11/03/18 11/05/18 metFORMIN HCL 1,000 mg PO BID 11/03/18 11/05/18 Metoprolol Tartrate [Lopressor] 12.5 mg PO BID 11/05/18 11/05/18 Previous Rx's Medication Instructions Recorded Aspirin 81 mg PO DAILY chew 11/05/18 Atorvastatin [Lipitor] 80 mg PO HS #0 11/05/18 Allergies Allergy/AdvReac Type Severity Reaction Status Date / Time Penicillins Allergy Unknown Verified 11/05/18 20:36 Childhood Review of Systems ROS Statement: Those systems with pertinent positive or pertinent negative responses have been documented in the HPI. ROS Other: All systems not noted in ROS Statement are negative. 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, ART-has CPAP but doesn't use, arthritis bilateral knees, hips and ankles, psoriases,(family hx of long QT syndrome) History of Any Multi-Drug Resistant Organisms: None Reported Past Surgical History: Heart Catheterization, Hernia Repair, Hysterectomy Additional Past Surgical History / Comment(s): total hysterectomy Past Anesthesia/Blood Transfusion Reactions: No Reported Reaction Additional Past Anesthesia/Blood Transfusion Reaction / Comment(s): past blood transfusion-no reaction Past Psychological History: No Psychological Hx Reported Smoking Status: Former smoker Past Alcohol Use History: Rare Past Drug Use History: None Reported - Past Family History Mother Family Medical History: Asthma, Diabetes Mellitus, Hypertension Additional Family Medical History / Comment(s): Long Qt syndrome Father Family Medical History: Pneumonia Additional Family Medical History / Comment(s): "stomach problems," Father of pneumonia at the age of 58yrs. General Exam Limitations: no limitations General appearance: alert, in no apparent distress Head exam: Present: atraumatic, normocephalic Eye exam: Present: normal appearance ENT exam: Present: normal exam Neck exam: Present: normal inspection Respiratory exam: Present: normal lung sounds bilaterally. Absent: respiratory distress, wheezes Cardiovascular Exam: Present: regular rate, normal rhythm GI/Abdominal exam: Present: soft. Absent: distended, tenderness Rectal exam: Present: deferred Extremities exam: Present: normal inspection Back exam: Present: normal inspection Neurological exam: Present: alert, oriented X3 Psychiatric exam: Present: normal affect, normal mood Skin exam: Present: warm, dry, intact Course Vital Signs 11/05/18 11/05/18 11/05/18 19:06 19:30 19:40 Temperature 98.2 F Pulse Rate 87 Respiratory 18 Rate Blood Pressure 132/77 110/73 O2 Sat by Pulse 98 94 L Oximetry 11/05/18 11/05/18 11/05/18 19:50 20:20 20:50 Temperature Pulse Rate 92 81 Respiratory Rate Blood Pressure 125/91 126/75 112/75 O2 Sat by Pulse 97 96 Oximetry Chest Pain [facility] Patient presents with a chief complaint of heart palpitations one day after having a cardiac catheterization. Catheterization did not show any occlusion of the vessels. EKG performed at 192 shows normal sinus rhythm with a rate of 88 bpm. EKG is otherwise unremarkable. Seconds. Within normal limits, no acute signs of ischemia. Patient given aspirin. She'll be evaluated with basic labs including cardiac enzymes and d-dimer. Nikky p.mYaquelin Laboratory evaluation this patient is unremarkable except for a mildly elevated d-dimer at 0.63. Follow-up computed tomography scan shows cardiomegaly but otherwise no evidence of pulmonary embolism. This case was discussed with Dr. Nickerson who states that the patient is stable at this point for outpatient follow- up. Reevaluation, patient is comfortable states that she has been a symp tomatically while in the emergency department. Discharged in stable condition with instructions to follow-up with primary care and cardiology in one to 2 days. Disposition Clinical Impression: Cardiomegaly Disposition: HOME SELF-CARE Condition: Good Instructions (If sedation given, give patient instructions): Heart Palpitations (ED) Is patient prescribed a controlled substance at d/c from ED?: No Referrals: Raegan Stratton MD [Primary Care Provider] - 1-2 days
[2018-11-05 19:41] LABS: Basophils % (A) 0 %; Eosinophils # (A) 0.1 k/uL (0-0.7); Eosinophils % (A) 2 %; HCT 42.5 % (34.0-46.0); HGB 13.6 gm/dL (11.4-16.0); Lymphocytes # (A) 2.6 k/uL (1.0-4.8); Lymphocytes % (A) 38 %; MCH 30.6 pg (25.0-35.0); MCHC 32.1 g/dL (31.0-37.0); MCV 95.5 fL (80.0-100.0); Mean Platelet Volume 7.2; Monocytes # (A) 0.2 k/uL (0-1.0); Monocytes % (A) 4 %; Neutrophils # (A) 3.8 k/uL (1.3-7.7); Neutrophils % (A) 56 %; Platelet Count 270 k/uL (150-450); RBC 4.45 m/uL (3.80-5.40); RDW 13.4 % (11.5-15.5); WBC 6.8 k/uL (3.8-10.6)
--- NOTE | 2018-11-05 19:50 | XR ---
EXAMINATION TYPE: XR chest 2V DATE OF EXAM: 11/05/2018 COMPARISON: 11/03/2018 HISTORY: Chest pain TECHNIQUE: Frontal and lateral views of the chest are obtained. FINDINGS: There is no heart failure nor confluent pneumonic infiltrate. There is minimal subsegmenta l atelectasis in the lower lobes. There are chest leads. Heart size is normal. IMPRESSION: Minimal subsegmental atelectasis similar to old exam. Normal heart.
[2018-11-05 19:54] LABS: Anion Gap 5 mmol/L; Blood Urea Nitrogen 10 mg/dL (7-17); Calcium 9.5 mg/dL (8.4-10.2); Carbon Dioxide 27 mmol/L (22-30); Chloride 106 mmol/L (98-107); Glucose 165 mg/dL (74-99); Sodium 138 mmol/L (137-145)
[2018-11-05 19:59] LABS: INR 0.9 (<1.2); Prothrombin Time 9.9 sec (9.0-12.0)
[2018-11-05 20:11] LABS: D-Dimer 0.63 mg/L FEU (<0.60)
--- NOTE | 2018-11-05 20:45 | CT ---
EXAMINATION TYPE: CT chest angio for PE DATE OF EXAM: 11/05/2018 COMPARISON: 11/03/2018 HISTORY: Arrhythmia. CT DLP: 916 mGycm Automated exposure control for dose reduction was used. CONTRAST: CT Chest for pulmonary embolism performed with with IV Contrast, patient injected with 92ml mL of Iso katarina 370. FINDINGS: There is some mild patchy subsegmental atelectasis at the lung bases. There is no pleural effusion. H eart appears slightly enlarged. There is no pericardial effusion. There are no hilar masses. There is no mediastinal adenopathy. Thoracic aorta appears normal. There is no sign of filling defect in the pulmonary arteries. The bony thorax appears intact. There i s some spurring in the thoracic spine.. IMPRESSION: No evidence of pulmonary embolism. Cardiomegaly. No change compared to last exam.
[2018-11-05 21:01] VITALS: BP 112/75; PULSE 81
== END 2018-11-05 21:47 | disposition home or self-care (01) ==
LOC: EC 19:02
DX: I51.7 Cardiomegaly (principal); R79.1 Abnormal coagulation profile; R00.2 Palpitations; J45.909 Unspecified asthma, uncomplicated; E11.9 Type 2 diabetes mellitus without complications; Z87.891 Personal history of nicotine dependence; Z88.0 Allergy status to penicillin; Z79.84 Long term (current) use of oral hypoglycemic drugs; Z79.899 Other long term (current) drug therapy; Z95.818 Presence of other cardiac implants and grafts; Z82.49 Family history of ischemic heart disease and other diseases of the circulatory system
CPT/HCPCS: 36415; 93005; 85379; 83880; 80048; 84484; 85025; 85610; 71046; 71275; 99285; Q9967

== ENCOUNTER → 2019-01-19 | Outpatient (CLI) | payer OTHER ==
[2019-01-19 15:52] LABS: Basophils % (A) 0 %; Eosinophils # (A) 0.2 k/uL (0-0.7); Eosinophils % (A) 4 %; HCT 42.2 % (34.0-46.0); HGB 13.3 gm/dL (11.4-16.0); Lymphocytes # (A) 2.3 k/uL (1.0-4.8); Lymphocytes % (A) 48 %; MCH 30.3 pg (25.0-35.0); MCHC 31.4 g/dL (31.0-37.0); MCV 96.4 fL (80.0-100.0); Mean Platelet Volume 7.1; Monocytes # (A) 0.2 k/uL (0-1.0); Monocytes % (A) 4 %; Neutrophils % (A) 43 %; Platelet Count 300 k/uL (150-450); RBC 4.38 m/uL (3.80-5.40); RDW 13.3 % (11.5-15.5); WBC 4.8 k/uL (3.8-10.6)
[2019-01-20 01:02] LABS: Albumin 3.9 g/dL (3.80-4.90); Albumin/Globulin Ratio 1.44 (1.60-3.17); Anion Gap 7.2 mmol/L (4.00-12.00); Calcium 8.9 mg/dL (8.7-10.3); Carbon Dioxide 24.8 mmol/L (21.6-31.8); Globulin 2.7 g/dL (1.6-3.3); Total Bilirubin 0.3 mg/dL (0.3-1.2); Total Protein 6.6 g/dL (6.2-8.2)
== END ==
LOC: LABWHC1 14:49
PROVIDERS: ATTEND Physician Assistant Medical
DX: L40.0 Psoriasis vulgaris (principal)
CPT/HCPCS: 36415; 80053; 85025

== ENCOUNTER → 2019-03-22 | Outpatient (CLI) | payer OTHER ==
--- NOTE | 2019-03-23 08:53 | MM ---
Reason for exam: screening (asymptomatic). Baseline mammogram. History: Patient is postmenopausal. Family history of breast cancer in maternal grandmother at age 40. Physical Findings: Nurse did not find any significant physical abnormalities on exam. MG Screening Mammo w CAD Bilateral CC, MLO, and ID view(s) were taken. There are scattered fibroglandular densities. There is no discrete abnormality. These results were verbally communicated with the patient and result sheet given to the patient on 03/22/19. ASSESSMENT: Negative, BI-RAD 1 RECOMMENDATION: Routine screening mammogram of both breasts in 1 year.
== END | disposition home or self-care (01) ==
LOC: RADMAMWWP 09:26
PROVIDERS: ATTEND Family Medicine
DX: Z12.31 Encounter for screening mammogram for malignant neoplasm of breast (principal)
CPT/HCPCS: 77067

== ENCOUNTER 2019-08-11 21:57 | Emergency (ER) | payer OTHER ==
[2019-08-11 22:01] VITALS: RESP 18
--- NOTE | 2019-08-11 22:43 | ED ---
Chest Pain HPI - General Chief Complaint: Chest Pain Stated Complaint: Chest Pain Time Seen by Provider: 08/11/19 22:09 Source: patient Mode of arrival: wheelchair Limitations: no limitations - History of Present Illness MD Complaint: chest pain Onset/Timin -: hour(s) Onset: during rest Pain Location: substernal Pain Radiation: none Severity: mild Quality: tightness Consistency: constant Improves With: nothing Worsens With: nothing - Related Data Home Medications Medication Instructions Recorded Confirmed Albuterol Nebulized [Ventolin 2.5 mg INHALATION RT-QID PRN 11/03/18 01/27/19 Nebulized] Lisinopril [Zestril] 10 mg PO DAILY 11/03/18 01/27/19 glipiZIDE [Glucotrol] 10 mg PO BID 11/03/18 01/27/19 metFORMIN HCL 1,000 mg PO BID 11/03/18 01/27/19 Metoprolol Tartrate [Lopressor] 12.5 mg PO BID 11/05/18 01/27/19 Previous Rx's Medication Instructions Recorded Aspirin 81 mg PO DAILY chew 11/05/18 Atorvastatin [Lipitor] 80 mg PO HS #0 11/05/18 Allergies Allergy/AdvReac Type Severity Reaction Status Date / Time Penicillins Allergy Unknown Verified 01/27/19 13:53 Childhood Review of Systems ROS Statement: Those systems with pertinent positive or pertinent negative responses have been documented in the HPI. ROS Other: All systems not noted in ROS Statement are negative. Constitutional: Denies: fever, chills Eyes: Reports: vision change ENT: Denies: ear pain, hearing loss Respiratory: Denies: cough, dyspnea, hemoptysis Cardiovascular: Reports: as per HPI, chest pain. Denies: palpitations, orthopnea, edema, syncope Gastrointestinal: Denies: abdominal pain, nausea, vomiting Genitourinary: Denies: dysuria, hematuria Musculoskeletal: Denies: back pain Skin: Denies: rash Neurological: Reports: headache. 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, ART-has CPAP but doesn't use, arthritis bilateral knees, hips and ankles, psoriases,(family hx of long QT syndrome) History of Any Multi-Drug Resistant Organisms: None Reported Past Surgical History: Heart Catheterization, Hernia Repair, Hysterectomy Additional Past Surgical History / Comment(s): total hysterectomy Past Anesthesia/Blood Transfusion Reactions: No Reported Reaction Additional Past Anesthesia/Blood Transfusion Reaction / Comment(s): past blood t ransfusion-no reaction Past Psychological History: No Psychological Hx Reported Smoking Status: Former smoker - Past Family History Mother Family Medical History: Asthma, Diabetes Mellitus, Hypertension Additional Family Medical History / Comment(s): Long Qt syndrome Father Family Medical History: Pneumonia Additional Family Medical History / Comment(s): "stomach problems," Father of pneumonia at the age of 58yrs. General Exam Limitations: no limitations General appearance: alert, in no apparent distress Head exam: Present: atraumatic, normocephalic Eye exam: Present: normal appearance, PERRL, EOMI. Absent: scleral icterus, conjunctival injection, nystagmus ENT exam: Present: normal oropharynx, mucous membranes moist Neck exam: Present: normal inspection, full ROM Respiratory exam: Present: normal lung sounds bilaterally. Absent: respiratory distress, wheezes, rales, rhonchi, stridor Cardiovascular Exam: Present: regular rate, normal rhythm, normal heart sounds. Absent: systolic murmur, diastolic murmur, rubs, gallop GI/Abdominal exam: Present: soft. Absent: distended, tenderness, guarding, rebound, rigid, mass Extremities exam: Present: normal inspection, normal capillary refill. Absent: pedal edema, calf tenderness Neurological exam: Present: alert, oriented X3, CN II-XII intact. Absent: motor sensory deficit Skin exam: Present: warm, dry, intact, normal color. Absent: rash Course Vital Signs 08/11/19 08/12/19 08/12/19 21:58 00:00 01:00 Temperature 97.9 F Pulse Rate 82 94 87 Respiratory 18 18 18 Rate Blood Pressure 151/78 123/73 132/69 O2 Sat by Pulse 97 100 100 Oximetry Disposition Clinical Impression: Type 2 diabetes mellitus with hyperglycemia Disposition: HOME SELF-CARE Condition: Good Instructions (If sedation given, give patient instructions): Diabetic Hyperglycemia (ED) Is patient prescribed a controlled substance at d/c from ED?: No Referrals: Raegan Stratton MD [Primary Care Provider] - 1-2 days
--- NOTE | 2019-08-11 23:00 | XR ---
EXAMINATION TYPE: XR chest 2V DATE OF EXAM: 08/11/2019 COMPARISON: 11/05/2018 HISTORY: Chest pain TECHNIQUE: 2 views FINDINGS: There is no heart failure nor confluent pneumonic infiltrate. There is no evidence of pleur al effusion. There are chest leads. Heart size is normal. There is small linear density at the right costophrenic angle. IMPRESSION: Minimal subsegmental atelectasis right lung base. Normal heart. No change.
--- NOTE | 2019-08-11 23:02 | CT ---
EXAMINATION TYPE: CT brain wo con DATE OF EXAM: 08/11/2019 COMPARISON: 04/21/2017 HISTORY: c/o headaches and blurred vision CT DLP: 1125.4 mGycm Automated exposure control for dose reduction was used. Ventricles have normal size. There is no mass effect nor midline shift. There is no sign of intracran ial hemorrhage. Calvarium appears normal. Skull base is intact. There is some debris in the right ext ernal auditory canal. IMPRESSION: Negative CT scan of the brain. No significant change.
[2019-08-11 23:24] LABS: Basophils % (A) 1 %; Eosinophils # (A) 0.2 k/uL (0-0.7); Eosinophils % (A) 3 %; HCT 41.6 % (34.0-46.0); HGB 13.7 gm/dL (11.4-16.0); Lymphocytes # (A) 2.5 k/uL (1.0-4.8); Lymphocytes % (A) 45 %; MCH 30.8 pg (25.0-35.0); MCHC 32.9 g/dL (31.0-37.0); MCV 93.7 fL (80.0-100.0); Mean Platelet Volume 7.6; Monocytes # (A) 0.2 k/uL (0-1.0); Monocytes % (A) 3 %; Neutrophils # (A) 2.6 k/uL (1.3-7.7); Neutrophils % (A) 47 %; Platelet Count 244 k/uL (150-450); RBC 4.44 m/uL (3.80-5.40); WBC 5.6 k/uL (3.8-10.6)
[2019-08-11 23:35] LABS: ALT 25 U/L (9-52); AST 19 U/L (14-36); African American GFR (CKD) >90 (>60 ml/min/1.73 sqM); Albumin 3.9 g/dL (3.5-5.0); Alkaline Phosphatase 122 U/L (38-126); Anion Gap 6 mmol/L; Blood Urea Nitrogen 10 mg/dL (7-17); Calcium 9.5 mg/dL (8.4-10.2); Carbon Dioxide 28 mmol/L (22-30); Chloride 103 mmol/L (98-107); Glucose 340 mg/dL (74-99); Magnesium 1.7 mg/dL (1.6-2.3); Non-African American GFR(CKD) >90 (>60 ml/min/1.73 sqM); Sodium 137 mmol/L (137-145); Total Bilirubin 0.4 mg/dL (0.2-1.3); Total Protein 7.4 g/dL (6.3-8.2)
[2019-08-11 23:44] LABS: INR 0.9 (<1.2); Partial Thromboplastin Time 24.6 sec (22.0-30.0); Prothrombin Time 9.6 sec (9.0-12.0)
[2019-08-12 01:51] LABS: Glucose,Whole Blood 302 mg/dL (75-99)
[2019-08-12] MEDS: INSULIN REGULAR 100 UNIT/ML VIAL IV STA (01:56)
[2019-08-12] MEDS: SODIUM CHLORIDE 0.9% 2,000 ML IV ONE (01:58)
[2019-08-12 02:43] LABS: Glucose,Whole Blood 282 mg/dL (75-99)
[2019-08-12 04:25] VITALS: BP 123/63; PULSE 106; TEMP 98.1
== END 2019-08-12 04:30 | disposition home or self-care (01) ==
LOC: EC 21:57
DX: E11.65 Type 2 diabetes mellitus with hyperglycemia (principal); J44.9 Chronic obstructive pulmonary disease, unspecified; M19.90 Unspecified osteoarthritis, unspecified site; G47.33 Obstructive sleep apnea (adult) (pediatric); Z99.89 Dependence on other enabling machines and devices; Z95.5 Presence of coronary angioplasty implant and graft; Z79.51 Long term (current) use of inhaled steroids; Z79.84 Long term (current) use of oral hypoglycemic drugs; Z79.899 Other long term (current) drug therapy; Z87.891 Personal history of nicotine dependence; Z88.0 Allergy status to penicillin
CPT/HCPCS: 36415; 70450; 71046; 80053; 83735; 84484; 85025; 85610; 85730; 93005; 96360; 99285

== ENCOUNTER 2023-11-16 15:28 | Emergency (ER) | payer OTHER ==
[2023-11-16 15:42] VITALS: RESP 18
--- NOTE | 2023-11-16 15:45 | ED ---
URI HPI - General Chief Complaint: Upper Respiratory Infection Stated Complaint: covid symp Time Seen by Provider: 11/16/23 15:43 Source: patient, RN notes reviewed Mode of arrival: ambulatory Limitations: no limitations - History of Present Illness Initial Comments: Patient is a 47-year-old female presenting to the ER with a chief complaint of myalgias and cough. Patient states her mother recently tested positive for COVID. Patient states she woke up in the middle the night and started to feel ill. She endorses cough, congestion, runny nose, ear pain, headache and myalgias. She reports she has not taken anything [id number] as she does not have anything at home currently. Denies any shortness of breath, chest pain, abdominal pain, constipation/diarrhea, urinary complaints or peripheral edema. - Related Data Home Medications Medication Instructions Recorded Confirmed Albuterol Nebulized [Ventolin 2.5 mg INHALATION RT-QID PRN 11/03/18 01/27/19 Nebulized] glipiZIDE [Glucotrol] 10 mg PO BID 11/03/18 01/27/19 lisinopriL [Zestril] 10 mg PO DAILY 11/03/18 01/27/19 metFORMIN HCL [Glucophage] 1,000 mg PO BID 11/03/18 01/27/19 Metoprolol Tartrate [Lopressor] 12.5 mg PO BID 11/05/18 01/27/19 Previous Rx's Medication Instructions Recorded Aspirin 81 mg PO DAILY chew 11/05/18 Atorvastatin [Lipitor] 80 mg PO HS #0 11/05/18 Allergies Allergy/AdvReac Type Severity Reaction Status Date / Time Penicillins Allergy Unknown Verified 11/16/23 15:32 Childhood Review of Systems ROS Statement: Those systems with pertinent positive or pertinent negative responses have been documented in the HPI. ROS Other: All systems not noted in ROS Statement are negative. 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, ART-has CPAP but doesn't use, arthritis bilateral knees, hips and ankles, psoriases,(family hx of long QT syndrome) History of Any Multi-Drug Resistant Organisms: None Reported Past Surgical History: Heart Catheterization, Hernia Repair, Hysterectomy Additional Past Surgical History / Comment(s): total hysterectomy Past Anesthesia/Blood Transfusion Reactions: No Reported Reaction Additional Past Anesthesia/Blood Transfusion Reaction / Comment(s): past blood transfusion-no reaction Past Psychological History: No Psychological Hx Reported Smoking Status: Never smoker Past Alcohol Use History: Rare Past Drug Use History: None Reported - Past Family History Mother Family Medical History: Asthma, Diabetes Mellitus, Hypertension Additional Family Medical History / Comment(s): Long Qt syndrome Father Family Medical History: Pneumonia Additional Family Medical History / Comment(s): "stomach problems," Father of pneumonia at the age of 58yrs. General Exam Limitations: no limitations General appearance: alert, in no apparent distress Head exam: Present: atraumatic, normocephalic, normal inspection Eye exam: Present: normal appearance, PERRL, EOMI. Absent: scleral icterus, conjunctival injection, periorbital swelling ENT exam: Present: normal exam, normal oropharynx, mucous membranes moist, TM's normal bilaterally Neck exam: Present: normal inspection. Absent: tenderness, meningismus, lymphadenopathy Respiratory exam: Present: normal lung sounds bilaterally. Absent: respiratory distress, wheezes, rales, rhonchi, stridor Cardiovascular Exam: Present: regular rate, normal rhythm, normal heart sounds. Absent: systolic murmur, diastolic murmur, rubs, gallop, clicks GI/Abdominal exam: Present: soft, normal bowel sounds. Absent: distended, tenderness, guarding, rebound, rigid Neurological exam: Present: alert, oriented X3, CN II-XII intact Psychiatric exam: Present: normal affect, normal mood Skin exam: Present: warm, dry, intact, normal color. Absent: rash Course Vital Signs 11/16/23 11/16/23 11/16/23 15:29 16:17 17:00 Temperature 101.4 F H 101.1 F H 99.4 F Pulse Rate 105 H Respiratory 18 Rate Blood Pressure 168/96 O2 Sat by Pulse 99 Oximetry Medical Decision Making - Medical Decision Making Was pt. sent in by a medical professional or institution (, PA, BAGGAGE SCREENER, urgent care, hospital, or half-way...) When possible be specific @ -No Did you speak to anyone other than the patient for history (EMS, parent, family, police, friend...)? What history was obtained from this source @ -No Did you review nursing and triage notes (agree or disagree)? Why? @ -I reviewed and agree with nursing and triage notes Were old charts reviewed (outside hosp., previous admission, EMS record, old EKG, old radiological studies, urgent care reports/EKG's, half-way records)? Report findings @ -No old charts were reviewed Differential Diagnosis (chest pain, altered mental status, abdominal pain women, abdominal pain men, vaginal bleeding, weakness, fever, dyspnea, syncope, headache, dizziness, GI bleed, back pain, seizure, CVA, palpatations, mental health, musculoskeletal)? @ -COVID, RSV, influenza, viral sinusitis, pneumonia this list is not meant to be all-inclusive EKG interpreted by me (3pts min.). @ -None X-rays interpreted by me (1pt min.). @ -X-ray interpreted by me negative for acute cardiopulmonary process. CT interpreted by me (1pt min.). @ -None done U/S interpreted by me (1pt. min.). @ -None done What testing was considered but not performed or refused? (CT, X-rays, U/S, labs)? Why? @ -None What meds were considered but not given or refused? Why? @ -None Did you discuss the management of the patient with other professionals (professionals i.e. , PA, BAGGAGE SCREENER, lab, RT, psych nurse, social work case manager, couples therapist, teacher, chief executive officer, rn case management)? Give summary @ -No Was smoking cessation discussed for >3mins.? @ -No Was critical care preformed (if so, how long)? @ -No Were there social determinants of health that impacted care today? How? (Homelessness, low income, unemployed, alcoholism, drug addiction, transportation, low edu. Level, literacy, decrease access to med. care, custodial, rehab)? @ -No Was there de-escalation of care discussed even if they declined (Discuss DNR or withdrawal of care, Hospice)? DNR status @ -No What co-morbidities impacted this encounter? (DM, HTN, Smoking, COPD, CAD, Cancer, CVA, ARF, Chemo, Hep., AIDS, mental health diagnosis, sleep apnea, morbid obesity)? @ -Hypertension, diabetes, asthma, obese Was patient admitted / discharged? Hospital course, mention meds given and route, prescriptions, significant lab abnormalities, going to OR and other pertinent info. @Discharge. Patient is a 47-year-old female presented to ER with a chief complaint of cough and myalgias. History and physical exam completed. Vitals significant for a temperature of 101 on arrival. Patient no signs of acute distress and nontoxic-appearing. Lung sounds clear to auscultation bilaterally. COVID-positive. Influenza and RSV negative. Chest x-ray interpreted by me negative for acute cardiopulmonary process. Patient received Tylenol and ibuprofen with improvement of fever in the ER. Results discussed with patient, all questions answered. I advised follow-up with PCP and [id number] Tylenol and Motrin for fever control. Return parameters discussed. Patient discharged stable condition follow-up PCP. Patient expressed understanding and agreement with care plan. Undiagnosed new problem with uncertain prognosis? @ -No Drug Therapy requiring intensive monitoring for toxicity (Heparin, Nitro, Insulin, Cardizem)? @ -No Were any procedures done? @ -No Diagnosis/symptom? @ -COVID/viral sinusitis Acute, or Chronic, or Acute on Chronic? @ -Acute Uncomplicated (without systemic symptoms) or Complicated (systemic symptoms)? @ -Uncomplicated Side effects of treatment? @ -No Exacerbation, Progression, or Severe Exacerbation? @ -No Poses a threat to life or bodily function? How? (Chest pain, [place], [place], pneumonia, PE, COPD, DKA, ARF, appy, cholecystitis, CVA, Diverticulitis, Homicidal, Suicidal, threat to staff... and all critical care pts) @ -No - Lab Data Lab Results 11/16/23 Range/Units 15:50 Influenza Type A (PCR) Not Detected (Not Detectd) Influenza Type B (PCR) Not Detected (Not Detectd) RSV (PCR) Not Detected (Not Detectd) SARS-CoV-2 (PCR) Detected A (Not Detectd) - Radiology Data Radiology results: report reviewed, image reviewed Disposition Clinical Impression: Acute viral sinusitis, COVID-19 Disposition: HOME SELF-CARE Condition: Stable Instructions (If sedation given, give patient instructions): Fever in Adults (ED) Additional Instructions: Please alternate OTC Tylenol and Motrin for fever control. Follow-up with PCP. Return to ER fro any new or worsening symptoms. Is patient prescribed a controlled substance at d/c from ED?: No Referrals: Raegan Sotomayor MD [Primary Care Provider] - 1-2 days Time of Disposition: 17:00
[2023-11-16] MEDS: ACETAMINOPHEN TAB 500 MG TAB PO STA (15:47)
--- NOTE | 2023-11-16 16:14 | XR ---
EXAMINATION TYPE: XR chest 2V DATE OF EXAM: 11/16/2023 4:03 PM CLINICAL INDICATION:Female, 47 years old with history of fever and cough; [facility] COMPARISON: Chest radiographs from 08/11/2019 TECHNIQUE: XR chest 2V Frontal and lateral views of the chest. FINDINGS: Lungs/Pleura: There is no evidence of pleural effusion, focal consolidation, or pneumothorax. Pulmonary vascularity: Unremarkable. Heart/mediastinum: Cardiomediastinal silhouette is unremarkable. Musculoskeletal: No acute osseous pathology. IMPRESSION: No acute cardiopulmonary disease/process.
[2023-11-16] MEDS: IBUPROFEN 600 MG TAB PO STA (16:37)
[2023-11-16 17:51] VITALS: BP 130/83; PULSE 102; TEMP 98.9
== END 2023-11-16 17:34 | disposition home or self-care (01) ==
LOC: EC 15:28
DX: U07.1 COVID-19 (principal); J01.90 Acute sinusitis, unspecified; E11.9 Type 2 diabetes mellitus without complications; I10 Essential (primary) hypertension; J45.909 Unspecified asthma, uncomplicated; E66.9 Obesity, unspecified; Z79.84 Long term (current) use of oral hypoglycemic drugs; Z79.899 Other long term (current) drug therapy; Z88.0 Allergy status to penicillin; Z68.41 Body mass index [BMI] 40.0-44.9, adult
CPT/HCPCS: 71046; 87636; 99284

== ENCOUNTER 2024-05-30 03:12 | Emergency (ER) | payer OTHER ==
[2024-05-30 04:04] LABS: ALT 25 U/L (4-34); AST 27 U/L (14-36); African American GFR (CKD) >90 (>60 ml/min/1.73 sqM); Albumin 3.8 g/dL (3.5-5.0); Alkaline Phosphatase 94 U/L (38-126); Anion Gap 4 mmol/L; Blood Urea Nitrogen 8 mg/dL (7-17); Calcium 9.6 mg/dL (8.4-10.2); Carbon Dioxide 26 mmol/L (22-30); Chloride 107 mmol/L (98-107); Glucose 375 mg/dL (74-99); Magnesium 1.7 mg/dL (1.6-2.3); Non-African American GFR(CKD) >90 (>60 ml/min/1.73 sqM); Sodium 137 mmol/L (137-145); Total Bilirubin 0.6 mg/dL (0.2-1.3); Total Protein 7.2 g/dL (6.3-8.2)
[2024-05-30 04:25] LABS: Potassium 4.4 mmol/L (3.5-5.1)
[2024-05-30 04:30] LABS: INR 0.9 (<1.2); Partial Thromboplastin Time 24.6 sec (22.0-30.0); Prothrombin Time 9.8 sec (10.0-12.5)
[2024-05-30 04:35] LABS: Basophils % (A) 0 %; Eosinophils # (A) 0.1 k/uL (0-0.7); Eosinophils % (A) 3 %; HCT 41.5 % (34.0-46.0); HGB 13.8 gm/dL (11.4-16.0); Lymphocytes # (A) 3.1 k/uL (1.0-4.8); Lymphocytes % (A) 58 %; MCH 31.7 pg (25.0-35.0); MCHC 33.2 g/dL (31.0-37.0); MCV 95.5 fL (80.0-100.0); Mean Platelet Volume 7.9; Monocytes # (A) 0.3 k/uL (0-1.0); Monocytes % (A) 5 %; Neutrophils # (A) 1.8 k/uL (1.3-7.7); Neutrophils % (A) 33 %; Platelet Count 261 k/uL (150-450); RBC 4.35 m/uL (3.80-5.40); RDW 12.8 % (11.5-15.5); WBC 5.4 k/uL (3.8-10.6)
--- NOTE | 2024-05-30 05:04 | ED ---
Chest Pain HPI - General Chief Complaint: Chest Pain Stated Complaint: Chest pain Time Seen by Provider: 05/30/24 04:51 Source: patient Mode of arrival: ambulatory Limitations: no limitations - History of Present Illness Initial Comments: This patient is 48-year-old woman with history of hypertension and diabetes who presents to have evaluation of chest pain that came on while she was trying to sleep. When the pain did not resolve she felt she should be evaluated here. No associated symptoms. MD Complaint: chest pain -: hour(s) Onset: during rest Pain Location: substernal Pain Radiation: none Severity: moderate Quality: dull Consistency: constant Improves With: nothing Worsens With: nothing Treatments Prior to Arrival: none - Related Data Home Medications Medication Instructions Recorded Confirmed Albuterol Nebulized [Ventolin 2.5 mg INHALATION RT-QID PRN 11/03/18 01/27/19 Nebulized] glipiZIDE [Glucotrol] 10 mg PO BID 11/03/18 01/27/19 lisinopriL [Zestril] 10 mg PO DAILY 11/03/18 01/27/19 metFORMIN HCL [Glucophage] 1,000 mg PO BID 11/03/18 01/27/19 Metoprolol Tartrate [Lopressor] 12.5 mg PO BID 11/05/18 01/27/19 Previous Rx's Medication Instructions Recorded Aspirin 81 mg PO DAILY chew 11/05/18 Atorvastatin [Lipitor] 80 mg PO HS #0 11/05/18 Allergies Allergy/AdvReac Type Severity Reaction Status Date / Time Penicillins Allergy Unknown Verified 11/16/23 15:32 Childhood Review of Systems ROS Statement: Those systems with pertinent positive or pertinent negative responses have been documented in the HPI. ROS Other: All systems not noted in ROS Statement are negative. Constitutional: Denies: fever, chills Respiratory: Denies: cough, dyspnea Cardiovascular: Reports: as per HPI, chest pain. Denies: palpitations, edema, syncope Gastrointestinal: Denies: abdominal pain, nausea, vomiting, diarrhea Genitourinary: Denies: dysuria, hematuria Musculoskeletal: Denies: back pain Skin: Denies: rash Neurological: Denies: headache, weakness, numbness EKG Findings - EKG Results: EKG: interpreted by FERNANDO, sinus rhythm (Rate 89 bpm) - Blocks, [place], Hypertrophy, ST Abn: AV and intraventricular conduction: right bundle branch block (fixed/intermittent, complete/incomplete) (Incomplete) QRS axis and voltage: left axis deviation (-30 to -90) Chamber hypertrophy or enlargement: only voltage criteria for left ventricular hypertrophy Repolarization changes or abnormalities: nonspecific abnormality, ST segment, and/or T wave 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, ART-has CPAP but doesn't use, arthritis bilateral knees, hips and ankles, psoriases,(family hx of long QT syndrome) History of Any Multi-Drug Resistant Organisms: None Reported Past Surgical History: Heart Catheterization, Hernia Repair, Hysterectomy Additional Past Surgical History / Comment(s): total hysterectomy Past Anesthesia/Blood Transfusion Reactions: No Reported Reaction Additional Past Anesthesia/Blood Transfusion Reaction / Comment(s): past blood transfusion-no reaction Past Psychological History: No Psychological Hx Reported Smoking Status: Never smoker Past Alcohol Use History: Rare Past Drug Use History: None Reported - Past Family History Mother Family Medical History: Asthma, Diabetes Mellitus, Hypertension Additional Family Medical History / Comment(s): Long Qt syndrome Father Family Medical History: Pneumonia Additional Family Medical History / Comment(s): "stomach problems," Father of pneumonia at the age of 58yrs. General Exam Limitations: no limitations General appearance: alert, in no apparent distress Head exam: Present: atraumatic, normocephalic Eye exam: Present: normal appearance. Absent: scleral icterus, conjunctival injection ENT exam: Present: normal oropharynx Neck exam: Present: normal inspection Respiratory exam: Present: normal lung sounds bilaterally. Absent: respiratory distress, wheezes, rales, rhonchi, stridor, accessory muscle use Cardiovascular Exam: Present: regular rate, normal rhythm, normal heart sounds. Absent: systolic murmur, diastolic murmur, rubs, gallop GI/Abdominal exam: Present: soft. Absent: distended, tenderness, guarding, rebound, rigid, mass Extremities exam: Present: normal inspection, normal capillary refill. Absent: pedal edema, calf tenderness Back exam: Present: normal inspection. Absent: CVA tenderness (R), CVA tenderness (L) Neurological exam: Present: alert Skin exam: Present: warm, dry, intact, normal color. Absent: rash Course Vital Signs 05/30/24 05/30/24 05/30/24 03:13 05:35 05:40 Temperature 98.1 F 98.4 F Pulse Rate 89 83 90 Respiratory 22 16 16 Rate Blood Pressure 166/103 143/89 139/92 O2 Sat by Pulse 97 96 96 Oximetry 05/30/24 05/30/24 05/30/24 05:48 05:52 08:18 Temperature Pulse Rate 90 89 65 Respiratory 16 14 16 Rate Blood Pressure 135/100 133/81 140/68 O2 Sat by Pulse 95 95 98 Oximetry Chest Pain MDM - MDM I reviewed the studies with the patient and explained that I was going to admit her for further cardiology evaluation and the patient stated she was feeling much better and wanted to do that as outpatient. We did treat her hyperglycemia. I explained there is some risk associated but she states she will return if any symptoms recur. Discussed further follow-up and return parameters. The patient had chest x-ray that interpreted as negative for acute infiltrate, pneumothorax, congestive heart failure. Was pt. sent in by a medical professional or institution (, PA, PULVERIZER FEEDER, urgent care, hospital, or senior living...) When possible be specific @ -[No] Did you speak to anyone other than the patient for history (EMS, parent, family, police, friend...)? What history was obtained from this source @ -[No] Did you review nursing and triage notes (agree or disagree)? Why? @ -[I reviewed and agree with nursing and triage notes] Were old charts reviewed (outside hosp., previous admission, EMS record, old EKG, old radiological studies, urgent care reports/EKG's, senior living records)? Report findings @ -[No old charts were reviewed] Differential Diagnosis (chest pain, altered mental status, abdominal pain women, abdominal pain men, vaginal bleeding, weakness, fever, dyspnea, syncope, headache, dizziness, GI bleed, back pain, seizure, CVA, palpatations, mental health, musculoskeletal)? @ -[Differential Chest Pain: Stable Angina, Unstable Angina, STEMI, NSTEMI Aortic Dissection, Pneumothorax, Musculoskeletal, Esophageal Spasm GERD, Cholecystitis, Pancreatitis, Zoster, this is not meant to be an all-inclusive list. EKG interpreted by me (3pts min.). @ -[I interpreted as above X-rays interpreted by me (1pt min.). @ -[I interpreted as above CT interpreted by me (1pt min.). @ -[None done] U/S interpreted by me (1pt. min.). @ -[None done] What testing was considered but not performed or refused? (CT, X-rays, U/S, labs)? Why? @ -[None] What meds were considered but not given or refused? Why? @ -[None] Did you discuss the management of the patient with other professionals (professionals i.e. , PA, PULVERIZER FEEDER, lab, RT, psych nurse, social media coordinator, business records manager, teacher, radiological defense officer, showcase trimmer)? Give summary @ -[No] Was smoking cessation discussed for >3mins.? @ -[No] Was critical care preformed (if so, how long)? @ -[No] Were there social determinants of health that impacted care today? How? (Homelessness, low income, unemployed, alcoholism, drug addiction, transportation, low edu. Level, literacy, decrease access to med. care, [facility], rehab)? @ -[No] Was there de-escalation of care discussed even if they declined (Discuss DNR or withdrawal of care, Hospice)? DNR status @ -[No] What co-morbidities impacted this encounter? (DM, HTN, Smoking, COPD, CAD, Cancer, CVA, ARF, Chemo, Hep., AIDS, mental health diagnosis, sleep apnea, morbid obesity)? @ -[Diabetes, hypertension Was patient admitted / discharged? Hospital course, mention meds given and route, prescriptions, significant lab abnormalities, going to OR and other pertinent info. @ -See above Undiagnosed new problem with uncertain prognosis? @ -[No] Drug Therapy requiring intensive monitoring for toxicity (Heparin, Nitro, Insulin, Cardizem)? @ -[No] Were any procedures done? @ -[No] Diagnosis/symptom? @ -[Acute chest pain Acute hyperglycemia Acute, or Chronic, or Acute on Chronic? @ -[Acute Uncomplicated (without systemic symptoms) or Complicated (systemic symptoms)? @ -[Uncomplicated Side effects of treatment? @ -[No] Exacerbation, Progression, or Severe Exacerbation? @ -[No] Poses a threat to life or bodily function? How? (Chest pain, [place], [place], pneumonia, PE, COPD, DKA, ARF, appy, cholecystitis, CVA, Diverticulitis, Homicidal, Suicidal, threat to staff... and all critical care pts) @ -[Yes there is risk of coronary disease. The patient will have close follow- up and will return if symptoms recur. Does require further cardiology evaluation Disposition Clinical Impression: Chest pain, Type 2 diabetes mellitus with hyperglycemia Disposition: HOME SELF-CARE Condition: Good Instructions (If sedation given, give patient instructions): Chest Pain (ED), Diabetic Hyperglycemia (ED) Is patient prescribed a controlled substance at d/c from ED?: No Referrals: Raegan Sotomayor MD [Primary Care Provider] - 1-2 days Zhao Torre MD [STAFF PHYSICIAN] - 1-2 days
[2024-05-30] MEDS: NITROGLYCERIN SL TABS 0.4 MG TAB SUBLINGUAL STA (05:35)
[2024-05-30 05:42] VITALS: TEMP 98.4
[2024-05-30] MEDS: ASPIRIN 81 MG PO STA (05:45)
[2024-05-30] MEDS: MORPHINE SULFATE 4 MG/ML SYRINGE IV STA (05:49)
--- NOTE | 2024-05-30 05:57 | XR ---
EXAM: XR Chest, 2 Views CLINICAL HISTORY: ITS.REASON XR Reason: Chest Pain TECHNIQUE: Frontal and lateral views of the chest. COMPARISON: No relevant prior studies available. FINDINGS: Lungs: Unremarkable. No consolidation. Pleural space: Unremarkable. No pneumothorax. Heart: Unremarkable. No cardiomegaly. Mediastinum: Unremarkable. Normal mediastinal contour. Bones/joints: Unremarkable. No acute fracture. IMPRESSION: Normal chest x-rays.
[2024-05-30] MEDS: INSULIN REGULAR 100 UNIT/ML VIAL (IV) SQ STA (06:53)
[2024-05-30] MEDS: SODIUM CHLORIDE 0.9% 1,000 ML IV ONE (06:55)
[2024-05-30 08:19] VITALS: BP 140/68; PULSE 65; RESP 16
== END 2024-05-30 08:19 | disposition home or self-care (01) ==
LOC: EC 03:12
CPT/HCPCS: 36415; 71046; 80053; 83735; 84484; 85025; 85610; 85730; 93005; 96361; 96374; 99285

== ENCOUNTER 2024-10-29 10:32 | Emergency (ER) | payer BC, OTHER ==
[2024-10-29 10:44] VITALS: BP 137/76; PULSE 75; RESP 18; TEMP 97.5
--- NOTE | 2024-10-29 11:06 | ED ---
Fall HPI - General Chief Complaint: Fall Stated Complaint: [facility], Fall Time Seen by Provider: 10/29/24 11:06 Source: patient, RN notes reviewed Mode of arrival: ambulatory Limitations: no limitations - History of Present Illness Initial Comments: 48-year-old female presented to the ER for evaluation of back pain. 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 She states her left leg swung out from behind her and her right leg braced herself and preventing her from actually falling. She reports her back was jerked backwards and has been sore since incident. She denies head injury, loss of consciousness or blood thinner use. Patient is reporting most of her pain to her lumbar spine. There is no radiation of the pain. No weakness. No saddle paresthesias, bowel or bladder incontinence or retention, radicular pain or lower extremity paresthesias. Patient reports she took 2 ibuprofen prior to arrival for pain control. Patient denies any other injuries or complaints at this time. - Related Data Home Medications Medication Instructions Recorded Confirmed Albuterol Nebulized [Ventolin 2.5 mg INHALATION RT-QID PRN 11/03/18 01/27/19 Nebulized] glipiZIDE [Glucotrol] 10 mg PO BID 11/03/18 01/27/19 lisinopriL [Zestril] 10 mg PO DAILY 11/03/18 01/27/19 metFORMIN HCL [Glucophage] 1,000 mg PO BID 11/03/18 01/27/19 Metoprolol Tartrate [Lopressor] 12.5 mg PO BID 11/05/18 01/27/19 Previous Rx's Medication Instructions Recorded Aspirin 81 mg PO DAILY chew 11/05/18 Atorvastatin [Lipitor] 80 mg PO HS #0 11/05/18 Cyclobenzaprine [Flexeril] 10 mg PO HS #10 tab 10/29/24 Lidocaine 4% Patch 1 patch TOPICAL DAILY #15 patch 10/29/24 Allergies Allergy/AdvReac Type Severity Reaction Status Date / Time Penicillins Allergy Unknown Verified 10/29/24 10:44 Childhood Review of Systems ROS Statement: Those systems with pertinent positive or pertinent negative responses have been documented in the HPI. ROS Other: All systems not noted in ROS Statement are negative. 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, ART-has CPAP but doesn't use, arthritis bilateral knees, hips and ankles, psoriases,(family hx of long QT syndrome) History of Any Multi-Drug Resistant Organisms: None Reported Past Surgical History: Heart Catheterization, Hernia Repair, Hysterectomy Additional Past Surgical History / Comment(s): total hysterectomy Past Anesthesia/Blood Transfusion Reactions: No Reported Reaction Additional Past Anesthesia/Blood Transfusion Reaction / Comment(s): past blood transfusion-no reaction Past Psychological History: No Psychological Hx Reported Smoking Status: Never smoker Past Alcohol Use History: Rare Past Drug Use History: None Reported - Past Family History Mother Family Medical History: Asthma, Diabetes Mellitus, Hypertension Additional Family Medical History / Comment(s): Long Qt syndrome Father Family Medical History: Pneumonia Additional Family Medical History / Comment(s): "stomach problems," Father of pneumonia at the age of 58yrs. General Exam Limitations: no limitations General appearance: alert, in no apparent distress Neck exam: Present: normal inspection. Absent: tenderness, meningismus, lymphadenopathy Respiratory exam: Present: normal lung sounds bilaterally. Absent: respiratory distress, wheezes, rales, rhonchi, stridor Cardiovascular Exam: Present: regular rate, normal rhythm, normal heart sounds. Absent: systolic murmur, diastolic murmur, rubs, gallop, clicks Extremities exam: Present: normal inspection, full ROM, normal capillary refill (2+ bilateral PT pulses), other (Negative straight leg raise bilaterally). Absent: tenderness, pedal edema, joint swelling, calf tenderness Back exam: Present: normal inspection, full ROM, tenderness (Lumbar spine) Neurological exam: Present: alert, oriented X3, CN II-XII intact Skin exam: Present: warm, dry, intact, normal color. Absent: rash Course Vital Signs 10/29/24 10:42 Temperature 97.5 F L Pulse Rate 75 Respiratory 18 Rate Blood Pressure 137/76 O2 Sat by Pulse 98 Oximetry Medical Decision Making - Medical Decision Making Was pt. sent in by a medical professional or institution (, PA, DANCE HALL HOSTESS, urgent care, hospital, or fdc...) When possible be specific @ -No Did you speak to anyone other than the patient for history (EMS, parent, family, police, friend...)? What history was obtained from this source @ -No Did you review nursing and triage notes (agree or disagree)? Why? @ -I reviewed and agree with nursing and triage notes Were old charts reviewed (outside hosp., previous admission, EMS record, old EKG, old radiological studies, urgent care reports/EKG's, fdc records)? Report findings @ -No old charts were reviewed Differential Diagnosis (chest pain, altered mental status, abdominal pain women, abdominal pain men, vaginal bleeding, weakness, fever, dyspnea, syncope, headache, dizziness, GI bleed, back pain, seizure, CVA, palpatations, mental h ealth, musculoskeletal)? @ -Differential Back Pain:Strain, zoster, cauda equina syndrome, epidural abscess, vertebral osteomyelitis, discitis, fracture, subluxation, disc herniation, DJD, spinal stenosis, dissection, AAA, pancreatitis, peptic ulcer disease, pyelonephritis, kidney stone, this is not meant to be an all-inclusive list. EKG interpreted by me (3pts min.). @ -None done X-rays interpreted by me (1pt min.). @ -Lumbar spine x-rays interpreted by me significant for no acute fractures or dislocations. CT interpreted by me (1pt min.). @ -None done U/S interpreted by me (1pt. min.). @ -None done What testing was considered but not performed or refused? (CT, X-rays, U/S, labs)? Why? @ -None What meds were considered but not given or refused? Why? @ -None Did you discuss the management of the patient with other professionals (professionals i.e. , PA, DANCE HALL HOSTESS, lab, RT, psych nurse, licensed social worker, ferryboat deckhand, teacher, workers' compensation hearings officer, employment case manager)? Give summary @ -No Was smoking cessation discussed for >3mins.? @ -No Was critical care preformed (if so, how long)? @ -No Were there social determinants of health that impacted care today? How? (Homelessness, low income, unemployed, alcoholism, drug addiction, transportation, low edu. Level, literacy, decrease access to med. care, shelter, rehab)? @ -No Was there de-escalation of care discussed even if they declined (Discuss DNR or withdrawal of care, Hospice)? DNR status @ -No What co-morbidities impacted this encounter? (DM, HTN, Smoking, COPD, CAD, Cancer, CVA, ARF, Chemo, Hep., AIDS, mental health diagnosis, sleep apnea, morbid obesity)? @ -None Was patient admitted / discharged? Hospital course, mention meds given and route, prescriptions, significant lab abnormalities, going to OR and other pertinent info. @ -Discharge. 48-year-old female presented to the ER back pain status slip on ice. She denies actually falling. Patient is neurovascularly intact with no red flag symptoms indicative of cauda equina syndrome. X-rays obtained negative. Patient received symptomatic control in the ER with Flexeril and lidocaine patches as patient reports taking ibuprofen prior to arrival. Upon reexamination, patient resting company in stretcher no signs of acute distress. Results discussed with patient, all questions answered. Pain believed to be musculoskeletal in nature. Flexeril and lidocaine patches prescribed. I advised [id number] ibuprofen and Tylenol for outpatient pain control. Strict return parameters discussed. Patient discharged stable condition. Patient verbally expressed understanding agree with care plan. Case discussed with ED attending, Dr. Flor. Undiagnosed new problem with uncertain prognosis? @ -No Drug Therapy requiring intensive monitoring for toxicity (Heparin, Nitro, Insulin, Cardizem)? @ -No Were any procedures done? @ -No Diagnosis/symptom? @ -Back pain Acute, or Chronic, or Acute on Chronic? @ -Acute Uncomplicated (without systemic symptoms) or Complicated (systemic symptoms)? @ -Uncomplicated Side effects of treatment? @ -No Exacerbation, Progression, or Severe Exacerbation? @ -No Poses a threat to life or bodily function? How? (Chest pain, [place], NM, pneumonia, PE, COPD, DKA, ARF, appy, cholecystitis, CVA, Diverticulitis, Homicidal, Suicidal, threat to staff... and all critical care pts) @ -No - Radiology Data Radiology results: report reviewed, image reviewed Disposition Clinical Impression: Fall, Back pain Disposition: HOME SELF-CARE Condition: Stable Instructions (If sedation given, give patient instructions): Fall Prevention (ED) Additional Instructions: You may take [id number] ibuprofen and Tylenol for pain control. Take Flexeril as prescribed. You may wear lidocaine patch for 12 hours daily then remove for 12 hours. Follow-up closely with PCP. Return to the ER for new or worsening concerns. Prescriptions: Cyclobenzaprine [Flexeril] 10 mg PO HS #10 tab Lidocaine 4% Patch 1 patch TOPICAL DAILY #15 patch Is patient prescribed a controlled substance at d/c from ED?: No Referrals: Raegan Sotomayor MD [Primary Care Provider] - 1-2 days Time of Disposition: 12:33
[2024-10-29] MEDS: CYCLOBENZAPRINE 10 MG TAB PO STA (11:17)
[2024-10-29] MEDS: LIDOCAINE 4% PATCH TOPICAL ONE (11:17)
--- NOTE | 2024-10-29 12:08 | XR ---
EXAMINATION TYPE: XR lumbar spine 2 or 3V DATE OF EXAM: 10/29/2024 11:45 AM COMPARISON: None. CLINICAL INDICATION: Female, 48 years old with history of pain, pain TECHNIQUE: Frontal and lateral images of the lumbar spine are obtained. FINDINGS: There are 5 lumbar type vertebral bodies identified. The lumbar spine shows straightened alignment. Vertebral body heights are within normal limits. There is mild to moderate disc space narr owing and spurring at L3-L4 and L4-L5 levels. There is suspected 5 mm medial left renal calculus at L 2-L3 disc space level. IMPRESSION: As above. [facility], , 10/29/2024 12:06 PM
== END 2024-10-29 12:43 | disposition home or self-care (01) ==
LOC: EC 10:32
DX: M54.9 Dorsalgia, unspecified (principal); Z88.0 Allergy status to penicillin; W00.0XXA Fall on same level due to ice and snow, initial encounter
CPT/HCPCS: 72100; 99283